=== PATIENT | female | born 1955 | race American Indian/Alaskan Native ===

== ENCOUNTER 2016-11-23 11:15 | Inpatient (IN) | payer MEDICARE, OTHER ==
[2016-11-23 11:16] VITALS: BMI 29.3
[2016-11-23] MEDS ORDERED: Sodium Chloride 0.9% 1,000 ML IV ONE (11:55)
--- NOTE | 2016-11-23 12:26 | RAD ---
HISTORY: SOB COMPARISON: None available. TECHNIQUE: Chest, one view. FINDINGS: LUNGS: No focal consolidation. Please note that chest x-ray has limited sensitivity for the detection of pulmonary masses. PLEURA: No significant pleural effusion identified. No definite pneumothorax . CARDIOVASCULAR: Heart size appears within normal limits. OSSEOUS STRUCTURES: Degenerative changes of the spine and shoulders. VISUALIZED UPPER ABDOMEN: Unremarkable. OTHER FINDINGS: None. IMPRESSION: No focal consolidation, significant pleural effusion, or definite pneumothorax identified.
[2016-11-23 13:07] LABS: BASO % 0.3 % (0.0-2.0); EOS % 0.3 % (0.0-4.0); LYMPH # 0.8 K/uL (1.0-4.3); LYMPH % 6.2 % (20.0-40.0); MEAN CELL VOLUME 91.8 fL (81.0-99.0); MEAN CORPUSCULAR HEMOGLOBIN 30.8 pg (27.0-31.0); MEAN CORPUSCULAR HGB CONC 33.5 g/dL (33.0-37.0); MEAN PLATELET VOLUME 8.9 fL (7.2-11.7); MONO # 0.5 K/uL (0.0-0.8); NEUT # 10.9 K/uL (1.8-7.0); NEUT % 89.2 % (50.0-75.0); WHITE BLOOD COUNT 12.2 K/uL (4.8-10.8)
[2016-11-23 13:08] LABS: HEMOGLOBIN 14.5 g/dL (11.0-16.0); PLATELET COUNT 280 K/uL (130-400)
[2016-11-23 13:10] LABS: ALBUMIN 3.2 g/dL (3.5-5.0)
[2016-11-23 13:12] LABS: GFR AFRICAN-AMERICAN 26; GFR NON-AFRICAN AMERICAN 21
[2016-11-23 13:13] LABS: ALB/GLOB RATIO 0.8 (1.0-2.1); ALT/SGPT 23 U/L (9-52); AST/SGOT 26 U/L (14-36); BLOOD UREA NITROGEN 52 mg/dL (7-17); CALCIUM 8.8 mg/dl (8.6-10.4)
[2016-11-23 13:21] LABS: CK-MB 0.63 ng/mL (0.0-3.38)
[2016-11-23] MEDS ORDERED: Potassium Chloride 20 mEq ER Tab PO STA (13:28)
[2016-11-23 13:42] LABS: BANDS 39 % (0-2); EOSINOPHIL 1 % (0-4); LYMPHOCYTE 6 % (20-40); MONOCYTE 2 % (0-10); NEUTROPHIL 52 % (50-75); PLATELET ESTIMATE NORMAL (NORMAL); TOTAL CELLS COUNTED 100
[2016-11-23 13:43] LABS: GIANT PLATELETS PRESENT
[2016-11-23] MEDS ORDERED: cefTRIAXone IV 1 gm in Dextros 50 ML IV ONE (13:49)
[2016-11-23] MEDS ORDERED: Potassium Chloride 20 mEq ER Tab PO ONE (14:17)
[2016-11-23] MEDS ORDERED: cefTRIAXone IV 1 gm in Dextros 50 ML IVPB ONE (14:17)
--- NOTE | 2016-11-23 14:29 | CT ---
PROCEDURE: CT HEAD WITHOUT CONTRAST. HISTORY: dizzy COMPARISON: None available. TECHNIQUE: Axial computed tomography images were obtained through the head/brain without intravenous contrast. Radiation dose: Total exam DLP = 1089.92 mGy-cm. This CT exam was performed using one or more of the following dose reduction techniques: Automated exposure control, adjustment of the mA and/or kV according to patient size, and/or use of iterative reconstruction technique. FINDINGS: HEMORRHAGE: No intracranial hemorrhage. BRAIN: No mass effect or edema. The mueller-white matter differentiation appears intact. Please note that MRI with diffusion imaging is more sensitive in the detection of acute ischemic event. VENTRICLES: No hydrocephalus. CALVARIUM: Unremarkable. PARANASAL SINUSES: Unremarkable as visualized. No significant inflammatory changes. MASTOID AIR CELLS: Unremarkable as visualized. No inflammatory changes. OTHER FINDINGS: None. IMPRESSION: No acute intracranial pathology identified.
--- NOTE | 2016-11-23 15:04 | C.PDOC ---
History Of Present Illness Patient is a 61 y/o female with HTN, COPD that presents to the emergency department for evaluation of dizziness and weak for the last 10 days. Notes she doesn't feel dizzy when laying down, but feels lightheaded when getting up. Patient also reports decreased appetite for the past week, and states she is not eating solids. Pt reports being seen by PMD today, who requested pt to come to ER for further evaluation. 9-) sore throat or pain with swallowing. Otherwise, patient denies any n/v/d, abdominal pain, headache, weakness, numbness, chest pain, shortness of breath, fever, chills, or any other associated symptoms at this time. Time Seen by Provider: 11/23/16 11:33 Chief Complaint (Nursing): Dizziness/Lightheaded History Per: Patient History/Exam Limitations: no limitations Onset/Duration Of Symptoms: Days (10) Current Symptoms Are (Timing): Still Present Seizure Or Post-ictal Symptoms: None Possible Causative Factor(s): Lightheaded W/Standing Fall Associated With With Symptoms: No Severity: None Pain Scale Rating Of: 0 Recent travel outside of the [place]: No Additional History Per: Patient Past Medical History Reviewed: Historical Data, Nursing Documentation, Vital Signs Vital Signs: Last Vital Signs Temp 98.2 F 11/23/16 18:19 Pulse 104 H 11/23/16 18:19 Resp 20 11/23/16 18:19 BP 109/76 11/23/16 18:19 Pulse Ox 99 11/23/16 18:19 - Medical History PMH: Anemia, Arthritis, Asthma, Back Problems, Bronchitis, Cardia Arrhythmia (" MY HEART RATE HAS ALWAYS BEEN A LITLLE FAST 105 OR SO."), Gall Bladder Disease, HTN Denies: Chronic Kidney Disease Surgical History: Back Surgery (neck spinal fusion), Endoscopy - [facility] Procedures ANESTH INJECT-SPIN CANAL (04/14/13) INJECT STEROID (04/14/13) INSPECTION OF GALLBLADDER, PERCUTANEOUS ENDOSCOPIC APPROACH (03/30/16) LUMBOSAC SPINE X-RAY NEC (04/14/13) RADIOGRAPHY OF GALLBLADDER & BILE DUCT USING OTH CONTRAST (03/30/16) RELEASE SMALL INTESTINE, OPEN APPROACH (03/30/16) RESECTION OF GALLBLADDER, OPEN APPROACH (03/30/16) RESECTION OF SMALL INTESTINE, OPEN APPROACH (03/30/16) SPINAL CANAL INJECT NEC (04/14/13) Family History: States: Unknown Family Hx - Social History Hx Alcohol Use: Yes Hx Substance Use: Yes - Immunization History Hx Tetanus Toxoid Vaccination: No Hx Influenza Vaccination: Yes Hx Pneumococcal Vaccination: No Review Of Systems Except As Marked, All Systems Reviewed And Found Negative. Constitutional: Positive for: Other (decreased appetite). Negative for: Fever, Chills Cardiovascular: Positive for: Light Headedness. Negative for: Chest Pain, Palpitations Respiratory: Negative for: Cough, Shortness of Breath Gastrointestinal: Negative for: Nausea, Vomiting, Abdominal Pain Skin: Negative for: Rash Neurological: Positive for: Dizziness. Negative for: Weakness, Numbness, Headache Physical Exam - Physical Exam Appears: Non-toxic, No Acute Distress Skin: Normal Color, Warm, Dry Head: Atraumatic, Normacephalic Eye(s): bilateral: Normal Inspection, EOMI Nose: Normal Oral Mucosa: Dry Throat: Normal, No Erythema, No Exudate Neck: Normal ROM, Supple Chest: Symmetrical Cardiovascular: Rhythm Regular, No Murmur Respiratory: Normal Breath Sounds, No Accessory Muscle Use, No Rales, No Rhonchi , No Wheezing Gastrointestinal/Abdominal: Soft, No Tenderness Extremity: Normal ROM Neurological/Psych: Oriented x3, Normal Speech ED Course And Treatment - Laboratory Results Result Diagrams: 11/23/16 12:41 11/23/16 12:41 ECG: Interpreted By Me, Viewed By Me ECG Rhythm: Sinus Tachycardia Interpretation Of ECG: No T wave depressions Rate From EC (BPM) O2 Sat by Pulse Oximetry: 99 (room air) Pulse Ox Interpretation: Normal Progress Note: Blood work, urinalysis, EKG, CXR, head CT ordered and reviewed. Patient was given IV fluids, potassium chloride, Rocephin. On reassessment, patient is resting comfortably, no acute distress. No neurologic deficits. Case discussed with lillian Carranza plan and treatment. Case discussed with Dr Bee who instructs admission under hospitalist . Disposition - Disposition Disposition: HOSPITALIZED Disposition Time: 16:00 Condition: STABLE - Clinical Impression Clinical Impression: Dizziness, Hypokalemia, Acute renal failure - PA / EAR MOLD LABORATORY TECHNICIAN / Resident Statement MD/DO has reviewed & agrees with the documentation as recorded. - Scribe Statement The provider has reviewed the documentation as recorded by the Scribe Marjorie Rhodesel All medical record entries made by the Joycelyn were at my direction and personally dictated by me. I have reviewed the chart and agree that the record accurately reflects my personal performance of the history, physical exam, medical decision making, and the department course for this patient. I have also personally directed, reviewed, and agree with the discharge instructions and disposition.
[2016-11-23 15:25] LABS: VENOUS BLOOD GAS BASE EXCESS -6.8 mmol/L (0.0-2.0); VENOUS BLOOD GAS PCO2 42 mmHg (40-60); VENOUS BLOOD GAS PO2 26 mm/Hg (30-55); VENOUS BLOOD PH 7.28 (7.32-7.43)
[2016-11-23] MEDS ORDERED: Albuterol HFA 90 mcg/actuation (8 g) IH PRN (18:31)
--- NOTE | 2016-11-23 18:41 | CP.PCM.HP ---
Addendum entered and electronically signed by Benny Pierson DO 11/23/16 21:47: Spoke with Dr. Pete Howard, covering Dr. Garsia. Started Zosyn 2.25 IVPB Q8 for pharyngitis and overlapping coverage for UTI. Stopped Rocephin. Original Note: <Jennifer Dean - Last Filed: 11/23/16 18:32> History of Present Illness - History of Present Illness History of Present Illness: CC: "I haven't eaten in 10 days." HPI: Patient is a 61 year old female with PMHx of HTN, COPD, arthritis, abdominal hernias and multiple weight loss surgeries presenting for feeling dizzy and weak and not being able to eat for 10 days. Patient says she can drink fluids and swallow her pills. However, she says she cannot eat solid food because everything tastes bad to her. She says everything either tastes too salty or too bitter. She says this has caused her appetite to decrease and that she has only had water, gatorade and iced tea for the past 10 days. Patient reports associated clear liquid stool. Patient also reports severely dry mouth to the point of cracks in the skin around her lips. Patient denies nasal congestion, clogged ears, earache, sore throat, odynophagia, nausea, vomiting. Patient reports the worst headache of her life on Wednesday. She denies associates photophobia, vision change, extremity weakness. Patient says it went away on its own. Patient also reports new abdominal hernias since her having her gallbladder removed. She says she saw Dr. Conte on Wednesday who told her he will repair some of them, but she wants all of them repaired. PMHx - as above Meds - Percocet, Flerexil, Norvasc, Abuterol as needed, Prilosec, Celebrex, Dulera as needed Allergies - NKDA Surg - b/l hip replacement, ovarin cystectomy, hysterectomy, toe surgery for ingrown toenails, bariatric surg x 3 (gastric sleeve, gastric stapling, gastric bypass) appendectomy, cholecystectomy 2015 Fam Hx - mother with diabetes and HTN, denies hx of stroke, heart disease, cancer Social - smokes 1/2 pack a day for 50 years, drinks [employer] with diet coke and [place] daily x 4 drinks "as much as I can", hx of cocaine use last use many years ago Present on Admission - Present on Admission Any Indicators Present on Admission: No Review of Systems - Constitutional Constitutional: Weakness. absent: Chills, Fever - EENT Eyes: absent: Photophobia Ears: Dizziness. absent: Decreased Hearing, Ear Pain Nose/Mouth/Throat: Dry Mouth. absent: Nasal Discharge, Post Nasal Drip, Mouth Pain, Odynophagia, Sore Throat - Cardiovascular Cardiovascular: absent: Chest Pain, Leg Edema - Respiratory Respiratory: absent: Cough, Dyspnea, Wheezing - Gastrointestinal Gastrointestinal: Abdominal Pain (at hernias), Diarrhea. absent: Constipation, Nausea, Vomiting - Genitourinary Genitourinary: absent: Dysuria, Urinary Frequency - Musculoskeletal Musculoskeletal: Back Pain - Integumentary Additional comments: cheilosis - Neurological Neurological: Dizziness, Headaches, Sensory Deficit (taste change), Weakness. absent: Focal Weakness, Syncope - Psychiatric Psychiatric: absent: Suicidal Ideation - Hematologic/Lymphatic Hematologic: absent: Easy Bleeding, Easy Bruising Past Patient History - Infectious Disease Hx of Infectious Diseases: None - Past Medical History & Family History Past Medical History?: Yes Pertinent Family History: mother with diabetes and HTN, denies hx of stroke, heart disease, cancer - Past Social History Smoking Status: Heavy Smoker > 10 Cigarettes Daily Alcohol: > 2 Drinks/Day Drugs: Denies - CARDIAC Hx Cardia Arrhythmia: Yes (" MY HEART RATE HAS ALWAYS BEEN A LITLLE FAST 105 OR SO.") Hx Hypertension: Yes - PULMONARY Hx Asthma: Yes Hx Bronchitis: Yes - HEENT Hx HEENT Problems: No - RENAL Hx Chronic Kidney Disease: No - ENDOCRINE/METABOLIC Hx Endocrine Disorders: No - HEMATOLOGICAL/ONCOLOGICAL Hx Anemia: Yes - INTEGUMENTARY Hx Dermatological Problems: No - MUSCULOSKELETAL/RHEUMATOLOGICAL Hx Arthritis: Yes - GASTROINTESTINAL Hx Gall Bladder Disease: Yes - GENITOURINARY/GYNECOLOGICAL Hx Genitourinary Disorders: No - PSYCHIATRIC Hx Substance Use: Yes - SURGICAL HISTORY Hx Surgeries: Yes Hx Gastric Bypass Surgery: Yes Hx Hysterectomy: Yes Hx Joint Replacement: Yes (bilat hips) Hx Orthopedic Surgery: Yes (2 hip replacement) Hx Tubal Ligation: Yes Other/Comment: HX: CERVICAL SURGERY FOR HERNIATED DISC(S) -RODS PLACED. Ovarian cyst removal. - ANESTHESIA Hx Anesthesia: Yes Hx Anesthesia Reactions: No Hx Malignant Hyperthermia: No Meds Allergies/Adverse Reactions: Allergies Allergy/AdvReac Type Severity Reaction Status Date / Time No Known Allergies Allergy Verified 11/23/16 11:25 Physical Exam - Constitutional Appears: Non-toxic, No Acute Distress - Head Exam Head Exam: NORMAL INSPECTION - Eye Exam Eye Exam: EOMI - ENT Exam Additional comments: cheilosis white exudate on left tonsil erythematous oropharynx no sinus tenderness - Respiratory Exam Respiratory Exam: Clear to Auscultation Bilateral, NORMAL BREATHING PATTERN. absent: Rales, Rhonchi, Wheezes - Cardiovascular Exam Cardiovascular Exam: REGULAR RHYTHM, +S1, +S2. absent: Gallop, Rubs, Systolic Murmur - GI/Abdominal Exam GI & Abdominal Exam: Guarding, Hernia, Hyperactive Bowel Sounds, Normal Bowel Sounds, Soft, Tenderness. absent: Distended - Extremities Exam Extremities exam: Positive for: pedal edema (trace b/l) - Neurological Exam Neurological exam: Alert, Oriented x3 - Psychiatric Exam Psychiatric exam: Normal Affect, Normal Mood - Skin Skin Exam: Normal Color, Warm Results - Vital Signs Recent Vital Signs: Last Vital Signs Temp 98.2 F 11/23/16 18:19 Pulse 104 H 11/23/16 18:19 Resp 20 11/23/16 18:19 BP 109/76 11/23/16 18:19 Pulse Ox 99 11/23/16 18:19 - Labs Result Diagrams: 11/23/16 12:41 11/23/16 12:41 Labs: Laboratory Results - last 24 hr 11/23/16 15:21 pO2 26 L VBG pH 7.28 L VBG pCO2 42 VBG HCO3 18.0 VBG Total CO2 21.0 L VBG O2 Sat (Calc) 50.1 VBG Base Excess -6.8 L VBG Potassium 2.7 L Sodium 133.0 Chloride 101.0 Glucose 104 Lactate 1.6 Venous Blood Potassium 2.7 L Assessment & Plan - Assessment and Plan (Free Text) Assessment: Leukocytosis WBC 12.2 with 39% bands Afebrile Lactic Acid 1.6 CXR 11/23/16 - no focal consolidation, pleural effusion or pneumothorax (please see full report) Secondary to pharyngitis v. gastroenteritis F/U blood culture F/U urine culture Pharyngitis Rocephin 1gm IVPB daily- day 1 ENT consult - Dr. Garsia - f/u recommendations Diarrhea F/U C diff, stool culture, O & P NS @ 125cc/hr Malnutrition Albumin 3.2 Full liquid diet Check vitamin C, B12, D and folate Hypokalemia K 2.6 Likely secondary to malnutrition and/or diarrhea 40mEq PO 20mEq x2 F/U CMP in AM SUHAIL BUN/Cr - 52/2.3 from normal in March Likely secondary to dehydration NS @ 125cc/hr F/U BUN/Cr in AM Cheilosis Check vitamin B12 and folate Headache Head CT 11/23/16 negative (please see full report) H/O multiple weight loss surgeries Check vitamins H/O HTN Continue home norvasc 5mg PO daily Monitor H/O COPD Continue Albuterol inhaler PRN Continue Dulera H/O arthritis with intractable back pain Continue home Flexeril 10mg PO HS, Celebrex 200mg PO BID and Percocet 5/325mg PO Q4H PRN pain H/O abdominal hernias F/U with Dr. Conte outpatient H/O tobacco abuse Nicotine 14mg/24 hour TD daily H/O ETOH abuse F/U alcohol level alcohol withdrawal assessments Q1 Thiamine 100mg PO daily Folic Acid 1mg PO daily MVI daily Prophylaxis Lovenox 40mg SC daily Protonix 40mg PO daily <Shad Ramon - Last Filed: 11/24/16 18:27> Results - Vital Signs Recent Vital Signs: Last Vital Signs Temp 97.7 F 11/24/16 16:50 Pulse 99 H 11/24/16 16:50 Resp 20 11/24/16 16:50 BP 94/67 L 11/24/16 16:50 Pulse Ox 99 11/24/16 16:50 - Labs Result Diagrams: 11/24/16 11:56 11/24/16 11:56 Labs: Laboratory Results - last 24 hr 11/23/16 11/23/16 11/23/16 18:30 19:26 19:52 WBC RBC Hgb Hct MCV MCH MCHC RDW Plt Count MPV Neut % (Auto) Lymph % (Auto) [place] % (Auto) Eos % (Auto) Baso % (Auto) Neut # Lymph # [place] # Eos # Baso # Neutrophils % (Manual) Band Neutrophils % Lymphocytes % (Manual) Monocytes % (Manual) Eosinophils % (Manual) Myelocytes % Platelet Estimate RBC Morphology Sodium Potassium Chloride Carbon Dioxide Anion Gap BUN Creatinine Est GFR ( Amer) Est GFR (Non-Af Amer) Random Glucose Calcium Magnesium Total Bilirubin AST ALT Alkaline Phosphatase Total Protein Albumin Globulin Albumin/Globulin Ratio Vitamin B12 25-OH Vitamin D Total Folate Urine Color Yellow Urine Clarity Hazy Urine pH 5.0 Ur Specific [place] 1.018 Urine Protein 1+ H Urine Glucose (UA) Normal Urine Ketones Negative Urine Blood Negative Urine Nitrate Positive H Urine Bilirubin Negative Urine Urobilinogen Normal Ur Leukocyte Esterase 2+ H Urine WBC (Auto) 25 H Urine RBC (Auto) 1 Ur Squamous Epith Cells 4 Ur Transition Epith Cell < 1 Urine Bacteria Many H Alcohol, Quantitative < 10 C. difficile Ag & Toxin Negative 11/24/16 11/24/16 11/24/16 11:56 11:56 11:56 WBC 11.1 H RBC 4.07 Hgb 12.3 D Hct 37.6 MCV 92.4 MCH 30.2 MCHC 32.7 L RDW 13.1 Plt Count 250 MPV 8.6 Neut % (Auto) 84.9 H Lymph % (Auto) 8.6 L [place] % (Auto) 5.7 Eos % (Auto) 0.6 Baso % (Auto) 0.2 Neut # 9.4 H Lymph # 1.0 Fountain # 0.6 Eos # 0.1 Baso # 0.0 Neutrophils % (Manual) 54 Band Neutrophils % 28 H* Lymphocytes % (Manual) 13 L Monocytes % (Manual) 3 Eosinophils % (Manual) 1 Myelocytes % 1 H Platelet Estimate Normal RBC Morphology Normal Sodium 134 Potassium 2.5 L* Chloride 104 Carbon Dioxide 15 L Anion Gap 17 BUN 42 H Creatinine 1.7 H Est GFR ( Amer) 37 Est GFR (Non-Af Amer) 30 Random Glucose 101 Calcium 7.8 L Magnesium Total Bilirubin 0.3 AST 19 ALT 22 Alkaline Phosphatase 110 Total Protein 5.8 L Albumin 2.5 L D Globulin 3.3 Albumin/Globulin Ratio 0.8 L Vitamin B12 > 1000 H 25-OH Vitamin D Total 40.6 Folate > 20.0 Urine Color Urine Clarity Urine pH Ur Specific [place] Urine Protein Urine Glucose (UA) Urine Ketones Urine Blood Urine Nitrate Urine Bilirubin Urine Urobilinogen Ur Leukocyte Esterase Urine WBC (Auto) Urine RBC (Auto) Ur Squamous Epith Cells Ur Transition Epith Cell Urine Bacteria Alcohol, Quantitative C. difficile Ag & Toxin 11/24/16 17:03 WBC RBC Hgb Hct MCV MCH MCHC RDW Plt Count MPV Neut % (Auto) Lymph % (Auto) [place] % (Auto) Eos % (Auto) Baso % (Auto) Neut # Lymph # [place] # Eos # Baso # Neutrophils % (Manual) Band Neutrophils % Lymphocytes % (Manual) Monocytes % (Manual) Eosinophils % (Manual) Myelocytes % Platelet Estimate RBC Morphology Sodium Potassium Chloride Carbon Dioxide Anion Gap BUN Creatinine Est GFR ( Amer) Est GFR (Non-Af Amer) Random Glucose Calcium Magnesium 1.8 Total Bilirubin AST ALT Alkaline Phosphatase Total Protein Albumin Globulin Albumin/Globulin Ratio Vitamin B12 25-OH Vitamin D Total Folate Urine Color Urine Clarity Urine pH Ur Specific [place] Urine Protein Urine Glucose (UA) Urine Ketones Urine Blood Urine Nitrate Urine Bilirubin Urine Urobilinogen Ur Leukocyte Esterase Urine WBC (Auto) Urine RBC (Auto) Ur Squamous Epith Cells Ur Transition Epith Cell Urine Bacteria Alcohol, Quantitative C. difficile Ag & Toxin Attending/Attestation - Attestation I have personally seen and examined this patient.: Yes I have fully participated in the care of the patient.: Yes I have reviewed all pertinent clinical information: Yes Notes (Text): 11/24/16 18:27 Patient was seen and examined at bedside with the resident the time of admission We have started the patient on IV antibiotics. We'll follow-up per ENT recommendations. I discussed the plan of care with the resident and agree with the history and physical and assessment/plan documented.
[2016-11-23 19:47] LABS: SQUAMOUS EPITHIAL 4 /hpf (0-5); URINE BACTERIA MANY (<OCC); URINE BILIRUBIN NEGATIVE (NEGATIVE); URINE BLOOD NEGATIVE (NEGATIVE); URINE CLARITY Hazy (Clear); URINE COLOR Yellow (YELLOW); URINE GLUCOSE (UA) NORMAL (Normal); URINE NITRATE POSITIVE (NEGATIVE); URINE PROTEIN 1+ mg/dL (NEGATIVE); URINE UROBILINOGEN NORMAL mg/dL (0.2-1.0)
[2016-11-23 19:48] LABS: URINE LEUKOCYTE ESTERASE 2+ Leu/uL (Negative)
[2016-11-23] MEDS: Sodium Chloride 0.9% 1,000 ML IV SCH (21:39)
[2016-11-23] MEDS: Oxycodone/Acetaminophen 5/325 mg Tab PO PRN (21:45)
[2016-11-23] MEDS ORDERED: Piperacillin/Tazobact 2.25 GM in Sodium Chloride 100 ML IVPB SCH (21:45)
[2016-11-23] MEDS: Piperacill/Tazo 2.25gm in Dex 2.25 GM/50 ML BAG IVPB SCH (22:00)
[2016-11-24] MEDS: Sodium Chloride 0.9% 1,000 ML IV SCH ×3 (04:05→18:56)
[2016-11-24] MEDS: Piperacill/Tazo 2.25gm in Dex 2.25 GM/50 ML BAG IVPB SCH ×3 (05:40→21:09)
[2016-11-24] MEDS: Multiple Vitamins Tab PO SCH (09:53)
[2016-11-24] MEDS: Enoxaparin 40 mg Syringe SC SCH (09:54)
[2016-11-24] MEDS ORDERED: Pantoprazole 40 mg EC Tab PO SCH (10:00)
[2016-11-24] MEDS: Oxycodone/Acetaminophen 5/325 mg Tab PO PRN ×3 (10:21→21:08)
[2016-11-24 12:08] LABS: BASO % 0.2 % (0.0-2.0); EOS # 0.1 K/uL (0.0-0.7); EOS % 0.6 % (0.0-4.0); LYMPH % 8.6 % (20.0-40.0); MEAN CELL VOLUME 92.4 fL (81.0-99.0); MEAN CORPUSCULAR HEMOGLOBIN 30.2 pg (27.0-31.0); MEAN CORPUSCULAR HGB CONC 32.7 g/dL (33.0-37.0); MEAN PLATELET VOLUME 8.6 fL (7.2-11.7); MONO # 0.6 K/uL (0.0-0.8); MONO % 5.7 % (0.0-10.0); NEUT # 9.4 K/uL (1.8-7.0); NEUT % 84.9 % (50.0-75.0); PLATELET COUNT 250 K/uL (130-400); RBC 4.07 Mil/uL (3.80-5.20); RED CELL DISTRIBUTION WIDTH 13.1 % (11.5-14.5); WHITE BLOOD COUNT 11.1 K/uL (4.8-10.8)
[2016-11-24 12:18] LABS: HEMOGLOBIN 12.3 g/dL (11.0-16.0)
[2016-11-24 12:22] LABS: ALBUMIN 2.5 g/dL (3.5-5.0)
[2016-11-24 12:25] LABS: ALB/GLOB RATIO 0.8 (1.0-2.1); ALT/SGPT 22 U/L (9-52); AST/SGOT 19 U/L (14-36); BLOOD UREA NITROGEN 42 mg/dL (7-17); GFR AFRICAN-AMERICAN 37; GFR NON-AFRICAN AMERICAN 30
[2016-11-24 12:26] LABS: CALCIUM 7.8 mg/dl (8.6-10.4)
[2016-11-24 12:46] LABS: BANDS 28 % (0-2); EOSINOPHIL 1 % (0-4); LYMPHOCYTE 13 % (20-40); MONOCYTE 3 % (0-10); MYELOCYTE 1 % (0-0); NEUTROPHIL 54 % (50-75); TOTAL CELLS COUNTED 100
[2016-11-24 12:47] LABS: PLATELET ESTIMATE NORMAL (NORMAL)
--- NOTE | 2016-11-24 12:58 | CP.PCM.PN ---
Subjective - Date & Time of Evaluation Date of Evaluation: 11/24/16 Time of Evaluation: 10:00 - Subjective Subjective: see below Objective - Vital Signs/Intake and Output Vital Signs (last 24 hours): Temp Pulse Resp BP Pulse Ox 97.2 F L 72 17 106/73 98 11/24/16 07:57 11/24/16 07:57 11/24/16 07:57 11/24/16 07:57 11/23/16 23:45 - Medications Medications: Current Medications Albuterol (Ventolin Hfa 90 Mcg/Actuation (8 G)) 2 puff IH RQ6 PRN PRN Reason: Wheezing Amlodipine Besylate (Norvasc) 5 mg PO DAILY [facility] Last Admin: 11/24/16 09:54 Dose: 5 mg Celecoxib (Celebrex) 200 mg PO BID [facility] Last Admin: 11/24/16 09:53 Dose: 200 mg Cyclobenzaprine HCl (Flexeril) 10 mg PO HS [facility] Last Admin: 11/23/16 21:46 Dose: 10 mg Enoxaparin Sodium (Lovenox) 40 mg SC DAILY [facility] Last Admin: 11/24/16 09:54 Dose: 40 mg Folic Acid (Folic Acid) 1 mg PO DAILY [facility] Last Admin: 11/24/16 09:54 Dose: 1 mg Home Med (Mometasone/Formoterol [Dulera 200 Mcg/5 Mcg Inhaler]) 2 puff IH RBID [facility] Sodium Chloride (Sodium Chloride 0.9%) 1,000 mls @ 125 mls/hr IV .Q8H [facility] Last Admin: 11/24/16 11:00 Dose: Not Given Piperacillin Sod/Tazobactam Sod (Zosyn 2.25 Gm Iv Premix) 2.25 gm in 50 mls @ 100 mls/hr IVPB Q8 [facility] Last Admin: 11/24/16 05:40 Dose: 100 mls/hr Multivitamins (Hexavitamin) 1 tab PO DAILY [facility] Last Admin: 11/24/16 09:53 Dose: 1 tab Nicotine (Nicoderm Cq) 1 patch TD DAILY [facility] Last Admin: 11/24/16 09:54 Dose: 1 patch Oxycodone/Acetaminophen (Percocet 5/325 Mg Tab) 1 tab PO Q4H PRN PRN Reason: Pain, moderate (4-7) Stop: 11/26/16 18:32 Last Admin: 11/24/16 10:21 Dose: 1 tab Pantoprazole Sodium (Protonix Ec Tab) 40 mg PO DAILY [facility] Last Admin: 11/24/16 09:53 Dose: 40 mg Thiamine HCl (Vitamin B1 Tab) 100 mg PO DAILY [facility] Last Admin: 11/24/16 09:57 Dose: 100 mg - Labs Labs: 11/24/16 11:56 11/24/16 11:56 Assessment and Plan - Assessment and Plan (Free Text) Assessment: ENT Consult History of Present Illness 61 y/o female with one week of loss of appetite and decreased oral intake. She came to the ER due to this along with generalized weakness. She has at no time complained of throat pain or difficulty swallowing. I am asked to consult as the PMD saw white spots on the tonsil yesterday. Past Medical Hx HTN COPD NKDA Medications see list in chart Exam awake, alert, comfortable breathing comfortably neck soft, no swelling, no LAD, no mass or lesion, no tenderness, trachea midline OC/OP: tonsils 1+ b/l and symmetric; no exudate; no erythema; no soft palate swelling or asymmetry nose clear, no discharge Patient refused fiberoptic scope of the nose and throat. I explained the purpose was to inspect the lower throat, but she still declined the exam. Impression Dehydration No evidence of acute tonsillitis or other throat infection Abx per primary team (for her leukocytosis) Call with questions or if exam or complaints change
--- NOTE | 2016-11-24 13:06 | CARD ---
APPROVED REPORT EKG Measurement Heart [id number] <Conclusion> Sinus tachycardia Possible Left atrial enlargement Nonspecific ST abnormality Abnormal ECG
[2016-11-24 13:27] LABS: FOLATE > 20.0 ng/mL
[2016-11-24] MEDS ORDERED: Potassium Chloride 20 mEq ER Tab PO ONE ×2 (15:45→22:03)
--- NOTE | 2016-11-24 16:32 | CP.PCM.PN ---
Addendum entered and electronically signed by Deon Garcia DO 11/24/16 17:51: Pt initially refused labwork this AM, but consented later on. Leukocytosis and bands improved from presentation, but remain elevated. K 2.5 from 2.6 yesterday. This value is critically low and was repleted with oral and IV potassium. Will follow up repletion effectiveness with CMP at 8pm this evening. Pt able to tolerate soup for lunch, and denies abdominal pain, nausea, vomiting , or diarrhea. Original Note: <Deon Garcia - Last Filed: 11/24/16 17:49> Subjective - Date & Time of Evaluation Date of Evaluation: 11/24/16 Time of Evaluation: 16:29 - Subjective Subjective: PGY-[address] Ramon's Service Pt seen and examined at bedside. Patient was found resting comfortably in bed, in no acute distress. She states that she continues to feel hungry and weak. Patient notes that the right side of her mouth is still dry and is further irritated when she opens her mouth too widely or smiles, but the left side is less irritated today. Patient states that back pain caused by degenerative disc disease is controlled, with no acute exacerbation in recent history. Patient no longer c/o dizziness or headache, stating that the dizziness was from not eating. Last BM was yesterday evening and was loose and denies further episodes of diarrhea. Patient denies nausea, vomiting, constipation, dysphagia, dyspnea, dysuria, chest pain, abdominal pain, leg tenderness. Objective - Vital Signs/Intake and Output Vital Signs (last 24 hours): Temp Pulse Resp BP Pulse Ox 97.2 F L 109 H 17 106/73 98 11/24/16 07:57 11/24/16 12:44 11/24/16 07:57 11/24/16 07:57 11/23/16 23:45 Intake and Output: 11/24/16 11/24/16 06:59 18:59 Intake Total 600 Balance 600 - Medications Medications: Current Medications Albuterol (Ventolin Hfa 90 Mcg/Actuation (8 G)) 2 puff IH RQ6 PRN PRN Reason: Wheezing Amlodipine Besylate (Norvasc) 5 mg PO DAILY [facility] Last Admin: 11/24/16 09:54 Dose: 5 mg Celecoxib (Celebrex) 200 mg PO BID [facility] Last Admin: 11/24/16 09:53 Dose: 200 mg Cyclobenzaprine HCl (Flexeril) 10 mg PO HS [facility] Last Admin: 11/23/16 21:46 Dose: 10 mg Enoxaparin Sodium (Lovenox) 40 mg SC DAILY [facility] Last Admin: 11/24/16 09:54 Dose: 40 mg Folic Acid (Folic Acid) 1 mg PO DAILY [facility] Last Admin: 11/24/16 09:54 Dose: 1 mg Home Med (Mometasone/Formoterol [Dulera 200 Mcg/5 Mcg Inhaler]) 2 puff IH RBID [facility] Sodium Chloride (Sodium Chloride 0.9%) 1,000 mls @ 125 mls/hr IV .Q8H [facility] Last Admin: 11/24/16 11:00 Dose: Not Given Piperacillin Sod/Tazobactam Sod (Zosyn 2.25 Gm Iv Premix) 2.25 gm in 50 mls @ 100 mls/hr IVPB Q8 [facility] Last Admin: 11/24/16 13:33 Dose: 100 mls/hr Potassium Chloride (Potassium Chloride 20 Meq/100 Ml) 20 meq in 100 mls @ 50 mls/hr IVPB ONCE ONE Stop: 11/24/16 17:59 Multivitamins (Hexavitamin) 1 tab PO DAILY [facility] Last Admin: 11/24/16 09:53 Dose: 1 tab Nicotine (Nicoderm Cq) 1 patch TD DAILY [facility] Last Admin: 11/24/16 09:54 Dose: 1 patch Oxycodone/Acetaminophen (Percocet 5/325 Mg Tab) 1 tab PO Q4H PRN PRN Reason: Pain, moderate (4-7) Stop: 11/26/16 18:32 Last Admin: 11/24/16 10:21 Dose: 1 tab Pantoprazole Sodium (Protonix Ec Tab) 40 mg PO DAILY [facility] Last Admin: 11/24/16 09:53 Dose: 40 mg Thiamine HCl (Vitamin B1 Tab) 100 mg PO DAILY [facility] Last Admin: 11/24/16 09:57 Dose: 100 mg - Labs Labs: 11/24/16 11:56 11/24/16 11:56 - Additional Findings Additional findings: - Constitutional Appears: Non-toxic, No Acute Distress - Head Exam Head Exam: NORMAL INSPECTION, Atraumatic - Eye Exam Eye Exam: EOMI, PERRL - ENT Exam Additional comments: cheliosis at lips improved white exudate on left tonsil improved from yesterday erythematous oropharynx no sinus tenderness - Respiratory Exam Respiratory Exam: Clear to Auscultation Bilateral, NORMAL BREATHING PATTERN. absent: Rales, Rhonchi, Wheezes - Cardiovascular Exam Cardiovascular Exam: REGULAR RHYTHM, +S1, +S2. absent: Gallop, Rubs, Systolic Murmur - GI/Abdominal Exam GI & Abdominal Exam: Guarding, Hernia, Hyperactive Bowel Sounds, Normal Bowel Sounds, Soft, Tenderness. absent: Distended - Extremities Exam Extremities exam: No calf tenderness - Neurological Exam Neurological exam: Alert, Oriented x3 - Psychiatric Exam Psychiatric exam: Normal Affect, Normal Mood - Skin Skin Exam: Normal Color, Warm Assessment and Plan - Assessment and Plan (Free Text) Plan: Leukocytosis with bandemia Afebrile Secondary to gastroenteritis vs. UTI Improved slightly today - WBC 11.1 from 12.2 yesterday - bands improving (39 on presentation, 28 today) Lactic Acid 1.6 on presentation UA (11/23/16): 2+ LE, Positive Nitrites, 25 WBC, Many bacteria urine culture (11/23/16): gram negative jeni CXR (11/23/16) - no focal consolidation, pleural effusion or pneumothorax ( please see full report) Zosyn 2.25gm IV Q8H (first dose 11/23/16) NS @ 125cc/hr F/U blood culture UTI UA (11/23/16): 2+ LE, Positive Nitrites, 25 WBC, Many bacteria Zosyn 2.25gm IV Q8H (first dose 11/23/16) Pharyngitis Zosyn 2.25gm IV Q8H - Discontinue Rocephin 1gm IVPB daily- day 1 ENT consult - Dr. Mccauley - no evidence of acute pharyngitis, tonsils WNL - signed off Diarrhea C diff negative f/u stool culture, O & P NS @ 125cc/hr Malnutrition Albumin 3.2 Full liquid diet Check vitamin C B12: > 1000 (elevated) D: WNL Folate: WNL Hypokalemia K 2.5 on PM recheck Likely secondary to diarrhea 40mEq PO, 20mEq IV x2 F/U CMP in PM SUHAIL Likely secondary to dehydration BUN/Cr improved after hydration - 52/2.3 on presentation, 42/1.7 today NS @ 125cc/hr Continue to monitor BUN/Cr in AM Headache Head CT 11/23/16 negative (please see full report) H/O multiple weight loss surgeries Vitamins WNL H/O HTN Well controlled, slightly hypotensive this AM Continue home norvasc 5mg PO daily Monitor H/O COPD Continue Albuterol inhaler PRN Continue Dulera H/O arthritis with intractable back pain Continue home Flexeril 10mg PO HS, Celebrex 200mg PO BID and Percocet 5/325mg PO Q4H PRN pain H/O abdominal hernias F/U with Dr. Conte outpatient H/O tobacco abuse Nicotine 14mg/24 hour TD daily H/O ETOH abuse Alcohol level: <10 alcohol withdrawal assessments Q1 Thiamine 100mg PO daily Folic Acid 1mg PO daily MVI daily Prophylaxis Lovenox 40mg SC daily Protonix 40mg PO daily Discussed with Dr. Tristen Garcia PGY-1 <Shad Ramon M - Last Filed: 11/25/16 17:03> Objective - Vital Signs/Intake and Output Vital Signs (last 24 hours): Temp Pulse Resp BP Pulse Ox 97.9 F 96 H 20 95/65 L 98 11/25/16 15:11 11/25/16 15:11 11/25/16 15:11 11/25/16 15:11 11/25/16 15:11 Intake and Output: 11/25/16 11/25/16 06:59 18:59 Intake Total 500 Balance 500 - Medications Medications: Current Medications Albuterol (Ventolin Hfa 90 Mcg/Actuation (8 G)) 2 puff IH RQ6 PRN PRN Reason: Wheezing Amlodipine Besylate (Norvasc) 5 mg PO DAILY [facility] Last Admin: 11/25/16 10:14 Dose: 5 mg Celecoxib (Celebrex) 200 mg PO BID [facility] Last Admin: 11/25/16 10:14 Dose: 200 mg Cyclobenzaprine HCl (Flexeril) 10 mg PO HS [facility] Last Admin: 11/24/16 21:08 Dose: 10 mg Enoxaparin Sodium (Lovenox) 40 mg SC DAILY [facility] Last Admin: 11/25/16 10:59 Dose: Not Given Folic Acid (Folic Acid) 1 mg PO DAILY [facility] Last Admin: 11/25/16 10:14 Dose: 1 mg Home Med (Mometasone/Formoterol [Dulera 200 Mcg/5 Mcg Inhaler]) 2 puff IH RBID [facility] Sodium Chloride (Sodium Chloride 0.9%) 1,000 mls @ 125 mls/hr IV .Q8H [facility] Last Admin: 11/25/16 13:46 Dose: 125 mls/hr Piperacillin Sod/Tazobactam Sod (Zosyn 2.25 Gm Iv Premix) 2.25 gm in 50 mls @ 100 mls/hr IVPB Q8 [facility] Last Admin: 11/25/16 13:49 Dose: 100 mls/hr Multivitamins (Hexavitamin) 1 tab PO DAILY [facility] Last Admin: 11/25/16 10:14 Dose: 1 tab Nicotine (Nicoderm Cq) 1 patch TD DAILY [facility] Last Admin: 11/25/16 10:13 Dose: 1 patch Oxycodone/Acetaminophen (Percocet 5/325 Mg Tab) 1 tab PO Q4H PRN PRN Reason: Pain, moderate (4-7) Stop: 11/26/16 18:32 Last Admin: 11/25/16 10:14 Dose: 1 tab Pantoprazole Sodium (Protonix Ec Tab) 40 mg PO Q24H [facility] Last Admin: 11/25/16 07:41 Dose: 40 mg Thiamine HCl (Vitamin B1 Tab) 100 mg PO DAILY [facility] Last Admin: 11/25/16 10:14 Dose: 100 mg - Labs Labs: 11/25/16 06:39 11/25/16 06:39 Attending/Attestation - Attestation I have personally seen and examined this patient.: Yes I have fully participated in the care of the patient.: Yes I have reviewed all pertinent clinical information, including history, physical exam and plan: Yes Notes (Text): 11/25/16 17:02 Patient was seen and examined at bedside with the resident Complains of for loose bowel movements Replace potassium and check levels again We will consider GI consultation Discussed the plan of care with the resident and agree with the history and physical and assessment/plan documented
[2016-11-24] MEDS: Potassium Chloride 20 mEq ER Tab PO ONE ×2 (19:50→22:03)
[2016-11-24] MEDS: Potassium Chloride 20 mEq/15 ml LIQ UD PO ONE ×2 (21:09→22:01)
[2016-11-25] MEDS: Sodium Chloride 0.9% 1,000 ML IV SCH ×3 (03:20→13:46)
[2016-11-25] MEDS: Piperacill/Tazo 2.25gm in Dex 2.25 GM/50 ML BAG IVPB SCH ×3 (05:51→21:41)
[2016-11-25 07:12] LABS: BASO % 0.3 % (0.0-2.0); EOS % 0.2 % (0.0-4.0); HEMOGLOBIN 11.7 g/dL (11.0-16.0); LYMPH # 1.1 K/uL (1.0-4.3); LYMPH % 7.6 % (20.0-40.0); MEAN CELL VOLUME 92.9 fL (81.0-99.0); MEAN CORPUSCULAR HEMOGLOBIN 29.8 pg (27.0-31.0); MEAN CORPUSCULAR HGB CONC 32.1 g/dL (33.0-37.0); MEAN PLATELET VOLUME 8.4 fL (7.2-11.7); MONO # 0.8 K/uL (0.0-0.8); MONO % 5.4 % (0.0-10.0); NEUT # 12.5 K/uL (1.8-7.0); NEUT % 86.5 % (50.0-75.0); PLATELET COUNT 229 K/uL (130-400); RBC 3.93 Mil/uL (3.80-5.20); RED CELL DISTRIBUTION WIDTH 13.1 % (11.5-14.5); WHITE BLOOD COUNT 14.5 K/uL (4.8-10.8)
[2016-11-25 07:22] LABS: ALBUMIN 2.2 g/dL (3.5-5.0)
[2016-11-25 07:26] LABS: ALB/GLOB RATIO 0.7 (1.0-2.1); CALCIUM 7.3 mg/dl (8.6-10.4); MAGNESIUM 1.7 mg/dL (1.6-2.3)
[2016-11-25] MEDS: Pantoprazole 40 mg EC Tab PO SCH (07:41)
[2016-11-25 08:47] LABS: BANDS 16 % (0-2); BURR CELLS SLIGHT; LARGE PLATELETS PRESENT; LYMPHOCYTE 8 % (20-40); MONOCYTE 8 % (0-10); NEUTROPHIL 68 % (50-75); PLATELET ESTIMATE NORMAL (NORMAL); POIKILOCYTOSIS SLIGHT; TOTAL CELLS COUNTED 100
[2016-11-25] MEDS ORDERED: Potassium Chloride 20 mEq ER Tab PO ONE ×3 (09:37→22:03)
[2016-11-25] MEDS: Multiple Vitamins Tab PO SCH (10:14)
[2016-11-25] MEDS: Oxycodone/Acetaminophen 5/325 mg Tab PO PRN ×2 (10:14→21:45)
[2016-11-25] MEDS: Enoxaparin 40 mg Syringe SC SCH (10:59)
--- NOTE | 2016-11-25 11:38 | CP.PCM.PN ---
<Hunter León E - Last Filed: 11/25/16 14:35> Subjective - Date & Time of Evaluation Date of Evaluation: 11/25/16 Time of Evaluation: 07:40 - Subjective Subjective: Medicine Note ( PGY 1): Dr. Ramon's Service Patient was seen and examined at bedside. Patient was resting comfortably in her bed, watching TV. Patient had no acute issues overnight. Patient has no new complaints. Patient continues to have decreased PO intake and very loose stool ( liquid form). Patient reports that she feels weak but denies chest pain, sob, fever, chills, abdominal pain, nausea, vomiting. Objective - Vital Signs/Intake and Output Vital Signs (last 24 hours): Temp Pulse Resp BP Pulse Ox 97.2 F L 99 H 20 96/68 L 95 11/25/16 08:22 11/25/16 08:22 11/25/16 08:22 11/25/16 08:22 11/25/16 08:22 - Medications Medications: Current Medications Albuterol (Ventolin Hfa 90 Mcg/Actuation (8 G)) 2 puff IH RQ6 PRN PRN Reason: Wheezing Amlodipine Besylate (Norvasc) 5 mg PO DAILY [facility] Last Admin: 11/25/16 10:14 Dose: 5 mg Celecoxib (Celebrex) 200 mg PO BID [facility] Last Admin: 11/25/16 10:14 Dose: 200 mg Cyclobenzaprine HCl (Flexeril) 10 mg PO HS [facility] Last Admin: 11/24/16 21:08 Dose: 10 mg Enoxaparin Sodium (Lovenox) 40 mg SC DAILY [facility] Last Admin: 11/25/16 10:59 Dose: Not Given Folic Acid (Folic Acid) 1 mg PO DAILY [facility] Last Admin: 11/25/16 10:14 Dose: 1 mg Home Med (Mometasone/Formoterol [Dulera 200 Mcg/5 Mcg Inhaler]) 2 puff IH RBID [facility] Sodium Chloride (Sodium Chloride 0.9%) 1,000 mls @ 125 mls/hr IV .Q8H [facility] Last Admin: 11/25/16 11:11 Dose: Not Given Piperacillin Sod/Tazobactam Sod (Zosyn 2.25 Gm Iv Premix) 2.25 gm in 50 mls @ 100 mls/hr IVPB Q8 [facility] Last Admin: 11/25/16 05:51 Dose: 100 mls/hr Multivitamins (Hexavitamin) 1 tab PO DAILY [facility] Last Admin: 11/25/16 10:14 Dose: 1 tab Nicotine (Nicoderm Cq) 1 patch TD DAILY [facility] Last Admin: 11/25/16 10:13 Dose: 1 patch Oxycodone/Acetaminophen (Percocet 5/325 Mg Tab) 1 tab PO Q4H PRN PRN Reason: Pain, moderate (4-7) Stop: 11/26/16 18:32 Last Admin: 11/25/16 10:14 Dose: 1 tab Pantoprazole Sodium (Protonix Ec Tab) 40 mg PO Q24H [facility] Last Admin: 11/25/16 07:41 Dose: 40 mg Potassium Chloride (K-Dur 20 Meq Er Tab) 40 meq PO ONCE ONE Stop: 11/25/16 13:39 Thiamine HCl (Vitamin B1 Tab) 100 mg PO DAILY [facility] Last Admin: 11/25/16 10:14 Dose: 100 mg - Labs Labs: 11/25/16 06:39 11/25/16 06:39 - Constitutional Appears: Well, No Acute Distress - Head Exam Head Exam: ATRAUMATIC, NORMAL INSPECTION - Eye Exam Eye Exam: EOMI, Normal appearance - ENT Exam ENT Exam: Mucous Membranes Moist, Normal Exam - Respiratory Exam Respiratory Exam: Clear to Ausculation Bilateral, NORMAL BREATHING PATTERN - Cardiovascular Exam Cardiovascular Exam: REGULAR RHYTHM, +S1, +S2 - GI/Abdominal Exam GI & Abdominal Exam: Soft, Normal Bowel Sounds - Extremities Exam Extremities Exam: Normal Capillary Refill, Normal Inspection - Neurological Exam Neurological Exam: Alert, Awake, Oriented x3 - Psychiatric Exam Psychiatric exam: Normal Affect, Normal Mood - Skin Skin Exam: Dry, Normal Color, Warm Assessment and Plan (1) Leucocytosis Assessment & Plan: Afebrile With Bandemia On admission (11/25/16): - WBC 12.2---> 11.1 (11/24/16)--->14.5 (11/25/16) - Bands 39---> 20(11/24/16)---> 16 (11/25/16): Improving - Lactic Acid 1.6 on presentation -Blood culture: No growth to date Possibly secondary to UTI UA (11/23/16): 2+ LE, Positive Nitrites, 25 WBC, Many bacteria urine culture (11/23/16): Gram negative jeni * Zosyn 2.25gm IVPB Q8H ( Day 2, started on 11/23/16) * NS @ 125cc/hr * Possibly secondary to Gastroenteritis * C-Diff Ag&Toxin: Negative (11/23/16) * Ova and Parasite: No ova and parasite seen Imaging: Chest X- ray (11/23/16) - no focal consolidation, pleural effusion or pneumothorax (please see full report) Status: Acute (2) Urinary tract infection Assessment & Plan: On admission (11/25/16): - WBC 12.2---> 11.1 (11/24/16)--->14.5 (11/25/16) - Bands 39---> 20(11/24/16)---> 16 (11/25/16): Improving UA (11/23/16): 2+ LE, Positive Nitrites, 25 WBC, Many bacteria Urine culture (11/23/16): Gram negative jeni * Zosyn 2.25gm IVPB Q8H ( Day 2, started on 11/23/16) * NS @ 125cc/hr Status: Acute (3) Pharyngitis Assessment & Plan: Zosyn 2.25gm IV Q8H - Discontinue Rocephin 1gm IVPB daily- day 1 ENT consult - Dr. Mccauley ( Help appreciated) - no evidence of acute pharyngitis, tonsils WNL - signed off Status: Acute (4) Diarrhea Assessment & Plan: GI consult ( Dr. Zuñiga)----> Help appreciated C-Diff Ag&Toxin: Negative (11/23/16) * Ova and Parasite: No ova and parasite seen * NS @ 125cc/hr Status: Acute (5) Malnutrition Assessment & Plan: Albumin 3.2---> 2.5(11/24/16)----> 2.2(11/25/16) Full liquid diet ( Renal Diet) B12: > 1000 (elevated) Vit D: WNL Folate: WNL Pending Vit C level Status: Acute (6) Hypokalemia Assessment & Plan: Possibly secondary to diarrhea K 3.0 on AM recheck * Repleted with 80meq PO and 20meq IV * Recheck this evening * Monitor K+ levels closely Status: Acute (7) Acute kidney injury Assessment & Plan: Improving Possibly secondary to dehydration On admission (11/23/16): BUN/CR: 53/2.3---> 42/1.7(11/24/16)---> 39/1.7(11/25/16) Continue NS @ 125cc/hr Status: Acute (8) Headache Assessment & Plan: Improved Head CT 11/23/16: No acute intracranial pathology identified. Status: Acute (9) Hypertension Assessment & Plan: Well controlled, slightly hypotensive this AM * NS @125mls/hr * Continue home norvasc 5mg PO daily Monitor Status: Acute (10) History of weight loss surgery Assessment & Plan: Vitamins WNL Status: Acute (11) History of COPD Assessment & Plan: Continue Albuterol inhaler 2 puff IH RQ6 PRN Status: Acute (12) History of abdominal hernia Assessment & Plan: F/U with Dr. Conte outpatient Status: Acute (13) History of alcohol abuse Assessment & Plan: Alcohol level on admission: <10 alcohol withdrawal assessments Q1 Thiamine 100mg PO daily Folic Acid 1mg PO daily MVI daily Status: Acute (14) History of tobacco abuse Assessment & Plan: Nicotine 14mg/24 hour TD daily Status: Acute (15) History of chronic back pain Assessment & Plan: Continue home medications: * Flexeril 10mg PO HS * Celebrex 200mg PO BID * Percocet 5/325mg PO Q4H PRN pain Status: Acute (16) History of arthritis Assessment & Plan: Continue home medication: * Celebrex 200mg PO BID Status: Acute (17) Prophylactic measure Assessment & Plan: Ambulating Lovenox 40mg SC daily Protonix 40mg PO daily Status: Acute <Shad Ramon M - Last Filed: 11/26/16 18:17> Objective - Vital Signs/Intake and Output Vital Signs (last 24 hours): Temp Pulse Resp BP Pulse Ox 97.3 F L 96 H 20 116/82 96 11/26/16 15:21 11/26/16 15:21 11/26/16 15:21 11/26/16 15:21 11/26/16 15:21 Intake and Output: 11/26/16 11/26/16 06:59 18:59 Intake Total 750 1080 Balance 750 1080 - Medications Medications: Current Medications Albuterol (Ventolin Hfa 90 Mcg/Actuation (8 G)) 2 puff IH RQ6 PRN PRN Reason: Wheezing Amlodipine Besylate (Norvasc) 5 mg PO DAILY [facility] Last Admin: 11/26/16 10:08 Dose: 5 mg Celecoxib (Celebrex) 200 mg PO BID [facility] Last Admin: 11/26/16 18:12 Dose: 200 mg Cyclobenzaprine HCl (Flexeril) 10 mg PO HS [facility] Last Admin: 11/25/16 21:41 Dose: 10 mg Enoxaparin Sodium (Lovenox) 40 mg SC DAILY [facility] Last Admin: 11/26/16 10:15 Dose: Not Given Folic Acid (Folic Acid) 1 mg PO DAILY [facility] Last Admin: 11/26/16 10:07 Dose: 1 mg Home Med (Mometasone/Formoterol [Dulera 200 Mcg/5 Mcg Inhaler]) 2 puff IH RBID [facility] Last Admin: 11/26/16 16:41 Dose: Not Given Metronidazole (Flagyl) 500 mg in 100 mls @ 100 mls/hr IVPB Q8H [facility] Last Admin: 11/26/16 16:28 Dose: 100 mls/hr Sodium Chloride (Sodium Chloride 0.9%) 1,000 mls @ 100 mls/hr IV .Q10H [facility] Last Admin: 11/26/16 11:23 Dose: 100 mls/hr Ciprofloxacin (Cipro 400mg/200ml Dsw) 400 mg in 200 mls @ 133 mls/hr IVPB Q12H [facility] Multivitamins (Hexavitamin) 1 tab PO DAILY [facility] Last Admin: 11/26/16 10:08 Dose: 1 tab Nicotine (Nicoderm Cq) 1 patch TD DAILY [facility] Last Admin: 11/26/16 10:08 Dose: 1 patch Oxycodone/Acetaminophen (Percocet 5/325 Mg Tab) 1 tab PO Q4H PRN PRN Reason: Pain, moderate (4-7) Stop: 11/26/16 18:32 Last Admin: 11/26/16 16:23 Dose: 1 tab Pantoprazole Sodium (Protonix Ec Tab) 40 mg PO Q24H [facility] Last Admin: 11/26/16 08:44 Dose: 40 mg Saccharomyces Boulardii (Florastor) 250 mg PO BID [facility] Last Admin: 11/26/16 18:12 Dose: 250 mg Thiamine HCl (Vitamin B1 Tab) 100 mg PO DAILY [facility] Last Admin: 11/26/16 10:08 Dose: 100 mg - Labs Labs: 11/26/16 08:23 11/26/16 08:23 Attending/Attestation - Attestation I have personally seen and examined this patient.: Yes I have fully participated in the care of the patient.: Yes I have reviewed all pertinent clinical information, including history, physical exam and plan: Yes Notes (Text): 11/26/16 18:16 Patient was seen and examined at bedside with the resident Complains of flow was watery stools GI evaluation is in progress Follow-up stool cultures Continue antibiotics Discussed the plan of care with the resident and agree with the history and physical and assessment/plan documented by the resident.
--- NOTE | 2016-11-25 22:37 | CP.PCM.CON ---
History of Present Illness - History of Present Illness History of Present Illness: ASked today to see pt for diarrhea. Rn is present. Pt reports a 10 day h/o poor appetite and 2 days of fatigue. Past few days developed diarrhea- watery stool. Denies antibiotics, fever, abdom pain. Had ROSEMARY 6 months ago and developed abdom hernias. Had gastric bypass surgery Review of Systems - Constitutional Constitutional: Fatigue, Headache, Weight Gain, Weakness. absent: Fever - EENT Nose/Mouth/Throat: Sore Throat. absent: Dysphagia - Cardiovascular Cardiovascular: absent: Chest Pain, Dyspnea - Respiratory Respiratory: absent: Dyspnea, Hemoptysis, Wheezing - Gastrointestinal Gastrointestinal: Diarrhea. absent: Abdominal Pain, Constipation, Hematemesis, Hematochezia, Melena, Vomiting - Genitourinary Genitourinary: absent: Hematuria - Musculoskeletal Musculoskeletal: absent: Muscle Cramps - Integumentary Integumentary: absent: Jaundice - Neurological Neurological: absent: Convulsions Past Patient History - Infectious Disease Hx of Infectious Diseases: None - Past Medical History & Family History Past Medical History?: Yes - Past Social History Smoking Status: Current Some Days Smoker - CARDIAC Hx Hypertension: Yes - PULMONARY Hx Asthma: Yes Hx Bronchitis: Yes - HEENT Hx HEENT Problems: No - RENAL Hx Chronic Kidney Disease: No - ENDOCRINE/METABOLIC Hx Endocrine Disorders: No - HEMATOLOGICAL/ONCOLOGICAL Hx Anemia: Yes Hx Hepatitis A: Yes - INTEGUMENTARY Hx Dermatological Problems: No - MUSCULOSKELETAL/RHEUMATOLOGICAL Hx Arthritis: Yes - GASTROINTESTINAL Hx Gall Bladder Disease: Yes - GENITOURINARY/GYNECOLOGICAL Hx Genitourinary Disorders: No - PSYCHIATRIC Hx Substance Use: Yes - SURGICAL HISTORY Hx Surgeries: Yes Hx Cholecystectomy: Yes (03/2016) Hx Gastric Bypass Surgery: Yes Hx Hysterectomy: Yes Hx Joint Replacement: Yes (bilat hips 06/2005 and 09/2005) Hx Orthopedic Surgery: Yes (2 hip replacement) Hx Tubal Ligation: Yes Other/Comment: HX: CERVICAL SURGERY FOR HERNIATED DISC(S) -RODS PLACED. Ovarian cyst removal. - ANESTHESIA Hx Anesthesia: Yes Hx Anesthesia Reactions: No Hx Malignant Hyperthermia: No Meds Allergies/Adverse Reactions: Allergies Allergy/AdvReac Type Severity Reaction Status Date / Time No Known Allergies Allergy Verified 11/23/16 11:25 - Medications Medications: Current Medications Albuterol (Ventolin Hfa 90 Mcg/Actuation (8 G)) 2 puff IH RQ6 PRN PRN Reason: Wheezing Amlodipine Besylate (Norvasc) 5 mg PO DAILY [facility] Last Admin: 11/25/16 10:14 Dose: 5 mg Celecoxib (Celebrex) 200 mg PO BID [facility] Last Admin: 11/25/16 18:26 Dose: 200 mg Cyclobenzaprine HCl (Flexeril) 10 mg PO HS [facility] Last Admin: 11/25/16 21:41 Dose: 10 mg Enoxaparin Sodium (Lovenox) 40 mg SC DAILY [facility] Last Admin: 11/25/16 10:59 Dose: Not Given Folic Acid (Folic Acid) 1 mg PO DAILY [facility] Last Admin: 11/25/16 10:14 Dose: 1 mg Home Med (Mometasone/Formoterol [Dulera 200 Mcg/5 Mcg Inhaler]) 2 puff IH RBID [facility] Sodium Chloride (Sodium Chloride 0.9%) 1,000 mls @ 125 mls/hr IV .Q8H [facility] Last Admin: 11/25/16 13:46 Dose: 125 mls/hr Piperacillin Sod/Tazobactam Sod (Zosyn 2.25 Gm Iv Premix) 2.25 gm in 50 mls @ 100 mls/hr IVPB Q8 [facility] Last Admin: 11/25/16 21:41 Dose: 100 mls/hr Multivitamins (Hexavitamin) 1 tab PO DAILY [facility] Last Admin: 11/25/16 10:14 Dose: 1 tab Nicotine (Nicoderm Cq) 1 patch TD DAILY [facility] Last Admin: 11/25/16 10:13 Dose: 1 patch Oxycodone/Acetaminophen (Percocet 5/325 Mg Tab) 1 tab PO Q4H PRN PRN Reason: Pain, moderate (4-7) Stop: 11/26/16 18:32 Last Admin: 11/25/16 21:45 Dose: 1 tab Pantoprazole Sodium (Protonix Ec Tab) 40 mg PO Q24H [facility] Last Admin: 11/25/16 07:41 Dose: 40 mg Thiamine HCl (Vitamin B1 Tab) 100 mg PO DAILY [facility] Last Admin: 11/25/16 10:14 Dose: 100 mg Physical Exam - Constitutional Appears: Non-toxic - Respiratory Exam Respiratory Exam: Clear to Auscultation Bilateral - Cardiovascular Exam Cardiovascular Exam: RRR - GI/Abdominal Exam GI & Abdominal Exam: Normal Bowel Sounds, Soft. absent: Distended, Guarding, Tenderness Additional comments: abdom scar and hernias. - Extremities Exam Extremities exam: Negative for: calf tenderness - Neurological Exam Neurological exam: Alert, Oriented x3 Results - Vital Signs Recent Vital Signs: Last Vital Signs Temp 97.9 F 11/25/16 15:11 Pulse 96 H 11/25/16 17:30 Resp 20 11/25/16 15:11 BP 95/65 L 11/25/16 15:11 Pulse Ox 98 11/25/16 15:11 - Labs Result Diagrams: 11/25/16 06:39 11/25/16 06:39 Labs: Laboratory Results - last 24 hr 11/25/16 11/25/16 11/25/16 06:39 06:39 14:14 WBC 14.5 H RBC 3.93 Hgb 11.7 Hct 36.5 MCV 92.9 MCH 29.8 MCHC 32.1 L RDW 13.1 Plt Count 229 MPV 8.4 Neut % (Auto) 86.5 H Lymph % (Auto) 7.6 L [place] % (Auto) 5.4 Eos % (Auto) 0.2 Baso % (Auto) 0.3 Neut # 12.5 H Lymph # 1.1 [place] # 0.8 Eos # 0.0 Baso # 0.0 Neutrophils % (Manual) 68 Band Neutrophils % 16 H* Lymphocytes % (Manual) 8 L Monocytes % (Manual) 8 Platelet Estimate Normal Large Platelets Present Poikilocytosis (manual Slight Meghann Cells Slight Sodium 134 Potassium 3.0 L Chloride 108 H Carbon Dioxide 14 L Anion Gap 15 BUN 39 H Creatinine 1.7 H Est GFR ( Amer) 37 Est GFR (Non-Af Amer) 30 Random Glucose 76 Calcium 7.3 L Phosphorus 3.6 Magnesium 1.7 Total Bilirubin 0.3 AST 18 ALT 28 Alkaline Phosphatase 97 Total Protein 5.3 L Albumin 2.2 L Globulin 3.1 Albumin/Globulin Ratio 0.7 L C. difficile Ag & Toxin HIV 1&2 Antibody Screen Negative 11/25/16 Unknown WBC RBC Hgb Hct MCV MCH MCHC RDW Plt Count MPV Neut % (Auto) Lymph % (Auto) [place] % (Auto) Eos % (Auto) Baso % (Auto) Neut # Lymph # [place] # Eos # Baso # Neutrophils % (Manual) Band Neutrophils % Lymphocytes % (Manual) Monocytes % (Manual) Platelet Estimate Large Platelets Poikilocytosis (manual Meghann Cells Sodium Potassium Chloride Carbon Dioxide Anion Gap BUN Creatinine Est GFR ( Amer) Est GFR (Non-Af Amer) Random Glucose Calcium Phosphorus Magnesium Total Bilirubin AST ALT Alkaline Phosphatase Total Protein Albumin Globulin Albumin/Globulin Ratio C. difficile Ag & Toxin Negative HIV 1&2 Antibody Screen Assessment & Plan (1) Acute kidney injury Assessment and Plan: dehydration Status: Acute (2) Diarrhea Assessment and Plan: c difficile is negative. Consider gastroenteritis. Denies abdom pain. Consider bile diarrhea. Status: Acute (3) Dizziness Status: Acute (4) Headache Status: Acute (5) History of COPD Status: Acute (6) History of abdominal hernia Status: Acute (7) History of alcohol abuse Status: Acute (8) History of arthritis Status: Acute (9) History of chronic back pain Status: Acute (10) History of weight loss surgery Status: Acute (11) Hypertension Status: Acute (12) Hypokalemia Status: Acute (13) Leucocytosis Assessment and Plan: Consider UTI as source. Consider c difficile- but stool is negative. Consider adding flagyl and probiotics. Status: Acute (14) Pharyngitis Status: Acute (15) Urinary tract infection Status: Acute
[2016-11-26] MEDS: Sodium Chloride 0.9% 1,000 ML IV SCH ×3 (00:48→11:23)
[2016-11-26 01:03] LABS: ALBUMIN 2.6 g/dL (3.5-5.0)
[2016-11-26 01:06] LABS: ALB/GLOB RATIO 0.8 (1.0-2.1)
[2016-11-26 01:07] LABS: CALCIUM 7.5 mg/dl (8.6-10.4)
[2016-11-26] MEDS ORDERED: Potassium Chloride 20 mEq ER Tab PO ONE ×2 (04:02→05:42)
[2016-11-26] MEDS: Piperacill/Tazo 2.25gm in Dex 2.25 GM/50 ML BAG IVPB SCH ×2 (05:55→13:43)
[2016-11-26 08:41] LABS: BASO % 0.2 % (0.0-2.0); EOS # 0.1 K/uL (0.0-0.7); EOS % 0.9 % (0.0-4.0); HEMOGLOBIN 11.9 g/dL (11.0-16.0); LYMPH # 1.3 K/uL (1.0-4.3); LYMPH % 12.4 % (20.0-40.0); MEAN CELL VOLUME 94.1 fL (81.0-99.0); MEAN CORPUSCULAR HEMOGLOBIN 31.2 pg (27.0-31.0); MEAN CORPUSCULAR HGB CONC 33.1 g/dL (33.0-37.0); MEAN PLATELET VOLUME 7.9 fL (7.2-11.7); MONO # 0.8 K/uL (0.0-0.8); MONO % 7.3 % (0.0-10.0); NEUT # 8.5 K/uL (1.8-7.0); NEUT % 79.2 % (50.0-75.0); RBC 3.82 Mil/uL (3.80-5.20); RED CELL DISTRIBUTION WIDTH 13.6 % (11.5-14.5); WHITE BLOOD COUNT 10.7 K/uL (4.8-10.8)
[2016-11-26] MEDS: Pantoprazole 40 mg EC Tab PO SCH (08:44)
[2016-11-26 08:55] LABS: ALBUMIN 2.2 g/dL (3.5-5.0)
[2016-11-26 08:57] LABS: GFR AFRICAN-AMERICAN > 60; GFR NON-AFRICAN AMERICAN 50
[2016-11-26 08:58] LABS: ALB/GLOB RATIO 0.7 (1.0-2.1); ALT/SGPT 26 U/L (9-52); AST/SGOT 19 U/L (14-36); BLOOD UREA NITROGEN 26 mg/dL (7-17)
[2016-11-26 08:59] LABS: CALCIUM 7.5 mg/dl (8.6-10.4); MAGNESIUM 1.8 mg/dL (1.6-2.3)
[2016-11-26] MEDS: Multiple Vitamins Tab PO SCH (10:08)
[2016-11-26] MEDS: metroNIDAZOLE IV 500 mg/100 ml 500 MG/100 ML BAG IVPB SCH ×2 (10:10→16:28)
[2016-11-26] MEDS: Enoxaparin 40 mg Syringe SC SCH (10:15)
[2016-11-26] MEDS: Oxycodone/Acetaminophen 5/325 mg Tab PO PRN ×2 (10:18→16:23)
--- NOTE | 2016-11-26 11:47 | CP.PCM.PN ---
Subjective - Date & Time of Evaluation Date of Evaluation: 11/26/16 Time of Evaluation: 11:44 - Subjective Subjective: F/U diarrhea. Reports has diarrhea today. Denies RB, melena, fever, chills SOB, cough, hematuria, hemoptysis Objective - Vital Signs/Intake and Output Vital Signs (last 24 hours): Temp Pulse Resp BP Pulse Ox 97.7 F 91 H 18 109/81 97 11/26/16 08:20 11/26/16 08:20 11/26/16 08:20 11/26/16 08:20 11/25/16 23:55 Intake and Output: 11/26/16 11/26/16 06:59 18:59 Intake Total 750 Balance 750 - Medications Medications: Current Medications Albuterol (Ventolin Hfa 90 Mcg/Actuation (8 G)) 2 puff IH RQ6 PRN PRN Reason: Wheezing Amlodipine Besylate (Norvasc) 5 mg PO DAILY [facility] Last Admin: 11/26/16 10:08 Dose: 5 mg Celecoxib (Celebrex) 200 mg PO BID [facility] Last Admin: 11/26/16 10:08 Dose: 200 mg Cyclobenzaprine HCl (Flexeril) 10 mg PO HS [facility] Last Admin: 11/25/16 21:41 Dose: 10 mg Enoxaparin Sodium (Lovenox) 40 mg SC DAILY [facility] Last Admin: 11/26/16 10:15 Dose: Not Given Folic Acid (Folic Acid) 1 mg PO DAILY [facility] Last Admin: 11/26/16 10:07 Dose: 1 mg Home Med (Mometasone/Formoterol [Dulera 200 Mcg/5 Mcg Inhaler]) 2 puff IH RBID [facility] Piperacillin Sod/Tazobactam Sod (Zosyn 2.25 Gm Iv Premix) 2.25 gm in 50 mls @ 100 mls/hr IVPB Q8 [facility] Last Admin: 11/26/16 05:55 Dose: 100 mls/hr Metronidazole (Flagyl) 500 mg in 100 mls @ 100 mls/hr IVPB Q8H [facility] Last Admin: 11/26/16 10:10 Dose: 100 mls/hr Sodium Chloride (Sodium Chloride 0.9%) 1,000 mls @ 100 mls/hr IV .Q10H [facility] Last Admin: 11/26/16 11:23 Dose: 100 mls/hr Multivitamins (Hexavitamin) 1 tab PO DAILY [facility] Last Admin: 11/26/16 10:08 Dose: 1 tab Nicotine (Nicoderm Cq) 1 patch TD DAILY [facility] Last Admin: 11/26/16 10:08 Dose: 1 patch Oxycodone/Acetaminophen (Percocet 5/325 Mg Tab) 1 tab PO Q4H PRN PRN Reason: Pain, moderate (4-7) Stop: 11/26/16 18:32 Last Admin: 11/26/16 10:18 Dose: 1 tab Pantoprazole Sodium (Protonix Ec Tab) 40 mg PO Q24H [facility] Last Admin: 11/26/16 08:44 Dose: 40 mg Saccharomyces Boulardii (Florastor) 250 mg PO BID [facility] Thiamine HCl (Vitamin B1 Tab) 100 mg PO DAILY [facility] Last Admin: 11/26/16 10:08 Dose: 100 mg - Labs Labs: 11/26/16 08:23 11/26/16 08:23 - Constitutional Appears: Non-toxic - Respiratory Exam Respiratory Exam: Clear to Ausculation Bilateral - Cardiovascular Exam Cardiovascular Exam: RRR - GI/Abdominal Exam GI & Abdominal Exam: Soft, Hernia, Normal Bowel Sounds. absent: Guarding, Tenderness, Rebound - Extremities Exam Extremities Exam: absent: Calf Tenderness - Neurological Exam Neurological Exam: Alert, Oriented x3 Assessment and Plan (1) Acute kidney injury Status: Acute (2) Diarrhea Assessment & Plan: check stool tests. WBC is better- to 10 Status: Acute (3) Dizziness Status: Acute (4) Headache Status: Acute (5) History of COPD Status: Acute (6) History of abdominal hernia Status: Acute (7) History of alcohol abuse Status: Acute (8) History of arthritis Status: Acute (9) History of chronic back pain Status: Acute (10) History of weight loss surgery Status: Acute (11) Hypertension Status: Acute (12) Hypokalemia Status: Acute (13) Leucocytosis Assessment & Plan: Improving Status: Acute (14) Pharyngitis Assessment & Plan: Seen by ENT. Status: Acute (15) Urinary tract infection Status: Acute
[2016-11-26] MEDS: Saccharomyces Boulardi 250 mg Cap PO SCH ×2 (12:10→18:12)
--- NOTE | 2016-11-26 16:17 | CP.PCM.PN ---
<CoreaPushpa brightcarine E - Last Filed: 11/26/16 17:46> Subjective - Date & Time of Evaluation Date of Evaluation: 11/26/16 Time of Evaluation: 07:40 - Subjective Subjective: Medicine Note (PGY 1): DRr. Ramon's service Patient was seen and examined at bedside. Patient states that she is doing well with minimal weakness. Patient is attempting to increase PO intake. Patient denies chest pain, dyspnea, abdominal pain, nausea, vomiting, headache, fever and chills but still admits to very loose ( liquid form) stool. Patient ambulates. Objective - Vital Signs/Intake and Output Vital Signs (last 24 hours): Temp Pulse Resp BP Pulse Ox 97.3 F L 96 H 20 116/82 96 11/26/16 15:21 11/26/16 15:21 11/26/16 15:21 11/26/16 15:21 11/26/16 15:21 Intake and Output: 11/26/16 11/26/16 06:59 18:59 Intake Total 750 1080 Balance 750 1080 - Medications Medications: Current Medications Albuterol (Ventolin Hfa 90 Mcg/Actuation (8 G)) 2 puff IH RQ6 PRN PRN Reason: Wheezing Amlodipine Besylate (Norvasc) 5 mg PO DAILY [facility] Last Admin: 11/26/16 10:08 Dose: 5 mg Celecoxib (Celebrex) 200 mg PO BID [facility] Last Admin: 11/26/16 10:08 Dose: 200 mg Cyclobenzaprine HCl (Flexeril) 10 mg PO HS [facility] Last Admin: 11/25/16 21:41 Dose: 10 mg Enoxaparin Sodium (Lovenox) 40 mg SC DAILY [facility] Last Admin: 11/26/16 10:15 Dose: Not Given Folic Acid (Folic Acid) 1 mg PO DAILY [facility] Last Admin: 11/26/16 10:07 Dose: 1 mg Home Med (Mometasone/Formoterol [Dulera 200 Mcg/5 Mcg Inhaler]) 2 puff IH RBID [facility] Piperacillin Sod/Tazobactam Sod (Zosyn 2.25 Gm Iv Premix) 2.25 gm in 50 mls @ 100 mls/hr IVPB Q8 [facility] Last Admin: 11/26/16 13:43 Dose: 100 mls/hr Metronidazole (Flagyl) 500 mg in 100 mls @ 100 mls/hr IVPB Q8H [facility] Last Admin: 11/26/16 10:10 Dose: 100 mls/hr Sodium Chloride (Sodium Chloride 0.9%) 1,000 mls @ 100 mls/hr IV .Q10H [facility] Last Admin: 11/26/16 11:23 Dose: 100 mls/hr Multivitamins (Hexavitamin) 1 tab PO DAILY [facility] Last Admin: 11/26/16 10:08 Dose: 1 tab Nicotine (Nicoderm Cq) 1 patch TD DAILY [facility] Last Admin: 11/26/16 10:08 Dose: 1 patch Oxycodone/Acetaminophen (Percocet 5/325 Mg Tab) 1 tab PO Q4H PRN PRN Reason: Pain, moderate (4-7) Stop: 11/26/16 18:32 Last Admin: 11/26/16 10:18 Dose: 1 tab Pantoprazole Sodium (Protonix Ec Tab) 40 mg PO Q24H [facility] Last Admin: 11/26/16 08:44 Dose: 40 mg Saccharomyces Boulardii (Florastor) 250 mg PO BID [facility] Last Admin: 11/26/16 12:10 Dose: 250 mg Thiamine HCl (Vitamin B1 Tab) 100 mg PO DAILY [facility] Last Admin: 11/26/16 10:08 Dose: 100 mg - Labs Labs: 11/26/16 08:23 11/26/16 08:23 - Constitutional Appears: Well, No Acute Distress - Head Exam Head Exam: NORMAL INSPECTION, NORMOCEPHALIC - Eye Exam Eye Exam: EOMI, Normal appearance - ENT Exam ENT Exam: Mucous Membranes Moist, Normal Exam - Respiratory Exam Respiratory Exam: Clear to Ausculation Bilateral, NORMAL BREATHING PATTERN - Cardiovascular Exam Cardiovascular Exam: REGULAR RHYTHM, +S1, +S2 - GI/Abdominal Exam GI & Abdominal Exam: Soft, Normal Bowel Sounds. absent: Tenderness - Extremities Exam Extremities Exam: Normal Capillary Refill, Normal Inspection. absent: Calf Tenderness, Pedal Edema - Neurological Exam Neurological Exam: Alert, Awake, Oriented x3 - Psychiatric Exam Psychiatric exam: Normal Affect, Normal Mood - Skin Skin Exam: Dry, Normal Color, Warm Assessment and Plan (1) Leucocytosis Assessment & Plan: Resolving Afebrile With Bandemia On admission (11/25/16): - WBC 12.2---> 11.1 (11/24/16)--->14.5 (11/25/16)---> 10.7 (11/26/16) - Bands 39---> 20(11/24/16)---> 16 (11/25/16): Improving - Lactic Acid 1.6 on presentation -Blood culture: No growth to date Possibly secondary to UTI UA (11/23/16): 2+ LE, Positive Nitrites, 25 WBC, Many bacteria Urine culture (11/23/16): Gram negative jeni. Salmonella Group B * Zosyn 2.25gm IVPB Q8H ( Day 2, started on 11/23/16)----> Changed to Ciprofloxacin 400mg IV BID (11/25/16) * NS @ 125cc/hr * Possibly secondary to Gastroenteritis * C-Diff Ag&Toxin: Negative (11/23/16) * Ova and Parasite: No ova and parasite seen * Stool Culture: + Gram negative jeni - Started on Flagyl 500mg IV Q8H ( Day 1)-->11/25/16 Imaging: Chest X- ray (11/23/16) - no focal consolidation, pleural effusion or pneumothorax (please see full report) Status: Acute (2) Urinary tract infection Assessment & Plan: On admission (11/25/16): - WBC 12.2---> 11.1 (11/24/16)--->14.5 (11/25/16)---> 10.7 (11/26/16): Improving - Bands 39---> 20(11/24/16)---> 16 (11/25/16): Improving UA (11/23/16): 2+ LE, Positive Nitrites, 25 WBC, Many bacteria Urine culture (11/23/16): Gram negative jeni ( Salmonella Group B) * Zosyn 2.25gm IVPB Q8H ( Day 2, started on 11/23/16)---> changed to ciprofloxacin 400mg IV BID (11/25/16) * NS @ 125cc/hr Status: Acute (3) Pharyngitis Assessment & Plan: Resolved Zosyn 2.25gm IV Q8H ---> Discontinued on 11/26/16 - Discontinue Rocephin 1gm IVPB daily- day 1 ENT consult - Dr. Mccauley ( Help appreciated) - no evidence of acute pharyngitis, tonsils WNL - signed off Status: Acute (4) Diarrhea Assessment & Plan: Ongoing GI consult ( Dr. Dixon)----> Help appreciated As per GI recommendation: Consider adding flagyl and probiotics; Started Flagy 500mg IV Q8H * Stool Culture: Gram negative jeni (11/25/16) * C-Diff Ag&Toxin: Negative (11/23/16) * Ova and Parasite: No ova and parasite seen * NS @ 125cc/hr Status: Acute (5) Malnutrition Assessment & Plan: Albumin 3.2---> 2.5(11/24/16)----> 2.2(11/25/16) Full liquid diet ( Renal Diet)--> Switched to heart healthy diet B12: > 1000 (elevated) Vit D: WNL Folate: WNL Pending Vit C level Patient is attempting to increase PO intake Status: Acute (6) Hypokalemia Assessment & Plan: Possibly secondary to diarrhea K 3.4 on AM recheck * Repleted with Kdur 80meq PO * f/u evening CMP and replete as needed * Monitor K+ levels closely Status: Acute (7) Acute kidney injury Assessment & Plan: Improving Possibly secondary to dehydration On admission (11/23/16): BUN/CR: 53/2.3---> 42/1.7(11/24/16)---> 39/1.7(11/25/16)---> 30/1.4 Continue NS @ 125cc/hr Status: Acute (8) Headache Assessment & Plan: Improved Head CT 11/23/16: No acute intracranial pathology identified. Status: Acute (9) Hypertension Assessment & Plan: Well controlled, slightly hypotensive this AM * NS @125mls/hr * Continue home norvasc 5mg PO daily Status: Acute (10) History of weight loss surgery Assessment & Plan: Vitamins WNL Status: Acute (11) History of COPD Assessment & Plan: Continue Albuterol inhaler 2 puff IH RQ6 PRN Status: Acute (12) History of abdominal hernia Assessment & Plan: F/U with Dr. Conte outpatient Status: Acute (13) History of alcohol abuse Assessment & Plan: Alcohol level on admission: <10 alcohol withdrawal assessments Q1 Thiamine 100mg PO daily Folic Acid 1mg PO daily MVI daily Status: Acute (14) History of tobacco abuse Assessment & Plan: Nicotine 14mg/24 hour TD daily Status: Acute (15) History of chronic back pain Assessment & Plan: Continue home medications: * Flexeril 10mg PO HS * Celebrex 200mg PO BID * Percocet 5/325mg PO Q4H PRN pain Status: Acute (16) History of arthritis Assessment & Plan: Continue home medication: * Celebrex 200mg PO BID Status: Acute (17) Prophylactic measure Assessment & Plan: Ambulating Florastor 250mg PO BID Lovenox 40mg SC daily Protonix 40mg PO daily Status: Acute <Shad Ramon - Last Filed: 11/27/16 15:00> Objective - Vital Signs/Intake and Output Vital Signs (last 24 hours): Temp Pulse Resp BP Pulse Ox 97.5 F L 109 H 18 103/74 99 11/27/16 08:08 11/27/16 08:08 11/27/16 08:08 11/27/16 08:08 11/27/16 08:08 Intake and Output: 11/27/16 11/27/16 06:59 18:59 Intake Total 700 Balance 700 - Medications Medications: Current Medications Albuterol (Ventolin Hfa 90 Mcg/Actuation (8 G)) 2 puff IH RQ6 PRN PRN Reason: Wheezing Amlodipine Besylate (Norvasc) 5 mg PO DAILY [facility] Last Admin: 11/27/16 10:03 Dose: 5 mg Celecoxib (Celebrex) 200 mg PO BID [facility] Last Admin: 11/27/16 10:03 Dose: 200 mg Cyclobenzaprine HCl (Flexeril) 10 mg PO HS [facility] Last Admin: 11/26/16 21:29 Dose: 10 mg Enoxaparin Sodium (Lovenox) 40 mg SC DAILY [facility] Last Admin: 11/27/16 10:04 Dose: Not Given Folic Acid (Folic Acid) 1 mg PO DAILY [facility] Last Admin: 11/27/16 10:04 Dose: 1 mg Home Med (Mometasone/Formoterol [Dulera 200 Mcg/5 Mcg Inhaler]) 2 puff IH RBID [facility] Last Admin: 11/26/16 16:41 Dose: Not Given Metronidazole (Flagyl) 500 mg in 100 mls @ 100 mls/hr IVPB Q8H [facility] Last Admin: 11/27/16 08:02 Dose: 100 mls/hr Sodium Chloride (Sodium Chloride 0.9%) 1,000 mls @ 100 mls/hr IV .Q10H [facility] Last Admin: 11/27/16 08:00 Dose: Not Given Ciprofloxacin (Cipro 400mg/200ml Dsw) 400 mg in 200 mls @ 133 mls/hr IVPB Q12H [facility] Last Admin: 11/27/16 06:18 Dose: 133 mls/hr Multivitamins (Hexavitamin) 1 tab PO DAILY [facility] Last Admin: 11/27/16 10:03 Dose: 1 tab Nicotine (Nicoderm Cq) 1 patch TD DAILY [facility] Last Admin: 11/27/16 10:03 Dose: 1 patch Oxycodone/Acetaminophen (Percocet 5/325 Mg Tab) 1 tab PO Q4H PRN PRN Reason: Pain, moderate (4-7) Stop: 11/30/16 00:11 Last Admin: 11/27/16 10:03 Dose: 1 tab Pantoprazole Sodium (Protonix Ec Tab) 40 mg PO Q24H [facility] Last Admin: 11/27/16 08:02 Dose: 40 mg Saccharomyces Boulardii (Florastor) 250 mg PO BID [facility] Last Admin: 11/27/16 10:03 Dose: 250 mg Thiamine HCl (Vitamin B1 Tab) 100 mg PO DAILY [facility] Last Admin: 11/27/16 10:03 Dose: 100 mg - Labs Labs: 11/27/16 06:29 11/27/16 06:29 Attending/Attestation - Attestation I have personally seen and examined this patient.: Yes I have fully participated in the care of the patient.: Yes I have reviewed all pertinent clinical information, including history, physical exam and plan: Yes Notes (Text): 11/27/16 15:00 Patient was seen and examined at bedside with the resident Patient is clinically improving We have added Flagyl per recommendations of GI I discussed the plan of care with the resident and agree with the history and physical and assessment/plan by the resident.
[2016-11-26] MEDS: MOMETASONE IH SCH (16:41)
[2016-11-26] MEDS: FORMOTEROL IH SCH (16:41)
[2016-11-26] MEDS ORDERED: Ciprofloxacin 400mg/200ml D5W 400 MG/200 ML BAG IVPB SCH (17:31)
[2016-11-26] MEDS: Ciprofloxacin 400mg/200ml D5W 400 MG/200 ML BAG IVPB SCH (19:33)
[2016-11-26] MEDS ORDERED: Magnesium Sulfate 1 gm in D5W 1 GM/100 ML BAG IVPB ONE (19:37)
[2016-11-26 20:39] LABS: ALBUMIN 2.4 g/dL (3.5-5.0)
[2016-11-26 20:42] LABS: ALB/GLOB RATIO 0.8 (1.0-2.1); ALT/SGPT 28 U/L (9-52); AST/SGOT 22 U/L (14-36); BLOOD UREA NITROGEN 20 mg/dL (7-17); GFR AFRICAN-AMERICAN > 60; GFR NON-AFRICAN AMERICAN 50
[2016-11-26 20:43] LABS: CALCIUM 7.4 mg/dl (8.6-10.4)
[2016-11-27] MEDS: Oxycodone/Acetaminophen 5/325 mg Tab PO PRN ×3 (00:35→16:41)
[2016-11-27] MEDS: metroNIDAZOLE IV 500 mg/100 ml 500 MG/100 ML BAG IVPB SCH ×3 (00:44→17:30)
[2016-11-27] MEDS: Ciprofloxacin 400mg/200ml D5W 400 MG/200 ML BAG IVPB SCH ×2 (06:18→19:41)
[2016-11-27 06:43] LABS: BASO % 0.1 % (0.0-2.0); EOS # 0.1 K/uL (0.0-0.7); EOS % 0.9 % (0.0-4.0); HEMOGLOBIN 12.7 g/dL (11.0-16.0); LYMPH # 2.4 K/uL (1.0-4.3); LYMPH % 15.7 % (20.0-40.0); MEAN CORPUSCULAR HEMOGLOBIN 30.8 pg (27.0-31.0); MEAN CORPUSCULAR HGB CONC 32.8 g/dL (33.0-37.0); MEAN PLATELET VOLUME 7.8 fL (7.2-11.7); MONO # 0.9 K/uL (0.0-0.8); MONO % 5.7 % (0.0-10.0); NEUT # 11.6 K/uL (1.8-7.0); NEUT % 77.6 % (50.0-75.0); RBC 4.14 Mil/uL (3.80-5.20); RED CELL DISTRIBUTION WIDTH 13.6 % (11.5-14.5)
[2016-11-27 07:30] LABS: ALBUMIN 2.6 g/dL (3.5-5.0)
[2016-11-27 07:32] LABS: AST/SGOT 28 U/L (14-36); GFR AFRICAN-AMERICAN > 60; GFR NON-AFRICAN AMERICAN 56
[2016-11-27 07:33] LABS: ALB/GLOB RATIO 0.8 (1.0-2.1); ALT/SGPT 24 U/L (9-52); BLOOD UREA NITROGEN 18 mg/dL (7-17); CALCIUM 7.6 mg/dl (8.6-10.4)
[2016-11-27 07:34] LABS: MAGNESIUM 1.8 mg/dL (1.6-2.3)
[2016-11-27] MEDS: Sodium Chloride 0.9% 1,000 ML IV SCH ×3 (08:00→22:32)
[2016-11-27] MEDS: Pantoprazole 40 mg EC Tab PO SCH (08:02)
[2016-11-27] MEDS: Multiple Vitamins Tab PO SCH (10:03)
[2016-11-27] MEDS: Saccharomyces Boulardi 250 mg Cap PO SCH ×2 (10:03→17:55)
[2016-11-27] MEDS: Enoxaparin 40 mg Syringe SC SCH (10:04)
[2016-11-27] MEDS: Potassium Chloride 20 mEq ER Tab PO ONE ×2 (10:10→10:34)
[2016-11-27 12:58] LABS: VITAMIN C 0.2 mg/dL (0.2-1.5)
--- NOTE | 2016-11-27 12:58 | CP.PCM.PN ---
Subjective - Date & Time of Evaluation Date of Evaluation: 11/27/16 Time of Evaluation: 12:30 - Subjective Subjective: F/U diarrhea. Reports has diarrhea. Less abdom pain. Denies fever, chills, SZ, LOC, PRICE, coufg, PRICE, Cp <SOB, Rb, melena Objective - Vital Signs/Intake and Output Vital Signs (last 24 hours): Temp Pulse Resp BP Pulse Ox 97.5 F L 109 H 18 103/74 99 11/27/16 08:08 11/27/16 08:08 11/27/16 08:08 11/27/16 08:08 11/27/16 08:08 Intake and Output: 11/27/16 11/27/16 06:59 18:59 Intake Total 700 Balance 700 - Medications Medications: Current Medications Albuterol (Ventolin Hfa 90 Mcg/Actuation (8 G)) 2 puff IH RQ6 PRN PRN Reason: Wheezing Amlodipine Besylate (Norvasc) 5 mg PO DAILY [facility] Last Admin: 11/27/16 10:03 Dose: 5 mg Celecoxib (Celebrex) 200 mg PO BID [facility] Last Admin: 11/27/16 10:03 Dose: 200 mg Cyclobenzaprine HCl (Flexeril) 10 mg PO HS [facility] Last Admin: 11/26/16 21:29 Dose: 10 mg Enoxaparin Sodium (Lovenox) 40 mg SC DAILY [facility] Last Admin: 11/27/16 10:04 Dose: Not Given Folic Acid (Folic Acid) 1 mg PO DAILY [facility] Last Admin: 11/27/16 10:04 Dose: 1 mg Home Med (Mometasone/Formoterol [Dulera 200 Mcg/5 Mcg Inhaler]) 2 puff IH RBID [facility] Last Admin: 11/26/16 16:41 Dose: Not Given Metronidazole (Flagyl) 500 mg in 100 mls @ 100 mls/hr IVPB Q8H [facility] Last Admin: 11/27/16 08:02 Dose: 100 mls/hr Sodium Chloride (Sodium Chloride 0.9%) 1,000 mls @ 100 mls/hr IV .Q10H [facility] Last Admin: 11/27/16 08:00 Dose: Not Given Ciprofloxacin (Cipro 400mg/200ml Dsw) 400 mg in 200 mls @ 133 mls/hr IVPB Q12H [facility] Last Admin: 11/27/16 06:18 Dose: 133 mls/hr Multivitamins (Hexavitamin) 1 tab PO DAILY [facility] Last Admin: 11/27/16 10:03 Dose: 1 tab Nicotine (Nicoderm Cq) 1 patch TD DAILY [facility] Last Admin: 11/27/16 10:03 Dose: 1 patch Oxycodone/Acetaminophen (Percocet 5/325 Mg Tab) 1 tab PO Q4H PRN PRN Reason: Pain, moderate (4-7) Stop: 11/30/16 00:11 Last Admin: 11/27/16 10:03 Dose: 1 tab Pantoprazole Sodium (Protonix Ec Tab) 40 mg PO Q24H [facility] Last Admin: 11/27/16 08:02 Dose: 40 mg Saccharomyces Boulardii (Florastor) 250 mg PO BID [facility] Last Admin: 11/27/16 10:03 Dose: 250 mg Thiamine HCl (Vitamin B1 Tab) 100 mg PO DAILY [facility] Last Admin: 11/27/16 10:03 Dose: 100 mg - Labs Labs: 11/27/16 06:29 11/27/16 06:29 - Constitutional Appears: Non-toxic - Respiratory Exam Respiratory Exam: Clear to Ausculation Bilateral - Cardiovascular Exam Cardiovascular Exam: RRR - GI/Abdominal Exam GI & Abdominal Exam: Soft, Tenderness, Normal Bowel Sounds. absent: Guarding Additional comments: Mild mid tenderness - Extremities Exam Extremities Exam: absent: Calf Tenderness - Neurological Exam Neurological Exam: Alert, Oriented x3 - Skin Skin Exam: Intact Assessment and Plan (1) Acute kidney injury Status: Acute (2) Diarrhea Assessment & Plan: salmonella. Status: Acute (3) Dizziness Status: Acute (4) Headache Status: Acute (5) History of COPD Status: Acute (6) History of abdominal hernia Status: Acute (7) History of alcohol abuse Status: Acute (8) History of arthritis Status: Acute (9) History of chronic back pain Status: Acute (10) History of weight loss surgery Status: Acute (11) Hypertension Status: Acute (12) Hypokalemia Status: Acute (13) Leucocytosis Status: Acute (14) Pharyngitis Status: Acute (15) Urinary tract infection Status: Acute (16) Salmonella Assessment & Plan: on cipro. F/u diarrhea and WBC Status: Acute
[2016-11-27] MEDS: FORMOTEROL IH SCH (20:37)
[2016-11-27] MEDS: MOMETASONE IH SCH (20:37)
--- NOTE | 2016-11-27 20:38 | CP.PCM.PN ---
<Hunter León E - Last Filed: 11/27/16 20:54> Subjective - Date & Time of Evaluation Date of Evaluation: 11/27/16 Time of Evaluation: 07:45 - Subjective Subjective: Medicine Note ( PGY 1) : Dr. Ramon's Service Patient was seen and examined at bedside. Patient reports that she is doing well with minimal weakness. Patient continues to increase PO intake. Patient denies chest pain, dyspnea, abdominal pain, nausea, vomiting, headache, fever and chills but still admits to episodes of very loose (liquid form) stool. Patient is ambulating. Objective - Vital Signs/Intake and Output Vital Signs (last 24 hours): Temp Pulse Resp BP Pulse Ox 97.6 F 109 H 20 111/76 100 11/27/16 15:20 11/27/16 15:20 11/27/16 15:20 11/27/16 15:20 11/27/16 15:20 Intake and Output: 11/27/16 11/28/16 18:59 06:59 Intake Total 1300 Balance 1300 - Medications Medications: Current Medications Albuterol (Ventolin Hfa 90 Mcg/Actuation (8 G)) 2 puff IH RQ6 PRN PRN Reason: Wheezing Amlodipine Besylate (Norvasc) 5 mg PO DAILY [facility] Last Admin: 11/27/16 10:03 Dose: 5 mg Celecoxib (Celebrex) 200 mg PO BID [facility] Last Admin: 11/27/16 18:07 Dose: 200 mg Cyclobenzaprine HCl (Flexeril) 10 mg PO HS [facility] Last Admin: 11/26/16 21:29 Dose: 10 mg Enoxaparin Sodium (Lovenox) 40 mg SC DAILY [facility] Last Admin: 11/27/16 10:04 Dose: Not Given Folic Acid (Folic Acid) 1 mg PO DAILY [facility] Last Admin: 11/27/16 10:04 Dose: 1 mg Home Med (Mometasone/Formoterol [Dulera 200 Mcg/5 Mcg Inhaler]) 2 puff IH RBID [facility] Last Admin: 11/26/16 16:41 Dose: Not Given Metronidazole (Flagyl) 500 mg in 100 mls @ 100 mls/hr IVPB Q8H [facility] Last Admin: 11/27/16 17:30 Dose: 100 mls/hr Sodium Chloride (Sodium Chloride 0.9%) 1,000 mls @ 100 mls/hr IV .Q10H [facility] Last Admin: 11/27/16 18:00 Dose: Not Given Ciprofloxacin (Cipro 400mg/200ml Dsw) 400 mg in 200 mls @ 133 mls/hr IVPB Q12H [facility] Last Admin: 11/27/16 19:41 Dose: 133 mls/hr Multivitamins (Hexavitamin) 1 tab PO DAILY [facility] Last Admin: 11/27/16 10:03 Dose: 1 tab Nicotine (Nicoderm Cq) 1 patch TD DAILY [facility] Last Admin: 11/27/16 10:03 Dose: 1 patch Oxycodone/Acetaminophen (Percocet 5/325 Mg Tab) 1 tab PO Q4H PRN PRN Reason: Pain, moderate (4-7) Stop: 11/30/16 00:11 Last Admin: 11/27/16 16:41 Dose: 1 tab Pantoprazole Sodium (Protonix Ec Tab) 40 mg PO Q24H [facility] Last Admin: 11/27/16 08:02 Dose: 40 mg Saccharomyces Boulardii (Florastor) 250 mg PO BID [facility] Last Admin: 11/27/16 17:55 Dose: 250 mg Thiamine HCl (Vitamin B1 Tab) 100 mg PO DAILY [facility] Last Admin: 11/27/16 10:03 Dose: 100 mg - Labs Labs: 11/27/16 06:29 11/27/16 06:29 - Constitutional Appears: Well, No Acute Distress - Head Exam Head Exam: NORMAL INSPECTION, NORMOCEPHALIC - Eye Exam Eye Exam: EOMI, Normal appearance - ENT Exam ENT Exam: Mucous Membranes Moist, Normal Exam - Respiratory Exam Respiratory Exam: Clear to Ausculation Bilateral, NORMAL BREATHING PATTERN - Cardiovascular Exam Cardiovascular Exam: REGULAR RHYTHM, +S1, +S2 - GI/Abdominal Exam GI & Abdominal Exam: Soft, Normal Bowel Sounds - Extremities Exam Extremities Exam: Normal Capillary Refill, Normal Inspection - Neurological Exam Neurological Exam: Alert, Awake, Oriented x3 - Psychiatric Exam Psychiatric exam: Normal Affect, Normal Mood - Skin Skin Exam: Dry, Normal Color, Warm Assessment and Plan (1) Leucocytosis Assessment & Plan: Afebrile With Bandemia On admission (11/25/16): - WBC 12.2---> 11.1 (11/24/16)--->14.5 (11/25/16)---> 10.7 (11/26/16)---> 15 () - Bands 39---> 20(11/24/16)---> 16 (11/25/16): Improving - Lactic Acid 1.6 on presentation -Blood culture: No growth to date Possibly secondary to UTI UA (11/23/16): 2+ LE, Positive Nitrites, 25 WBC, Many bacteria Urine culture (11/23/16): Gram negative jeni. Salmonella Group B * Zosyn 2.25gm IVPB Q8H ( Day 2, started on 11/23/16)----> Changed to Ciprofloxacin 400mg IV BID (11/25/16, Day 2) * NS @ 125cc/hr * Possibly secondary to Gastroenteritis * C-Diff Ag&Toxin: Negative (11/23/16) * Ova and Parasite: No ova and parasite seen * Stool Culture: + Gram negative jeni, Salmonella Group B - Continue on Flagyl 500mg IV Q8H ( Day 2)-->11/25/16 Imaging: Chest X- ray (11/23/16) - no focal consolidation, pleural effusion or pneumothorax Status: Acute (2) Urinary tract infection Assessment & Plan: Asymptomatic On admission (11/25/16): - WBC 12.2---> 11.1 (11/24/16)--->14.5 (11/25/16)---> 10.7 (11/26/16): Improving - Bands 39---> 20(11/24/16)---> 16 (11/25/16): Improving UA (11/23/16): 2+ LE, Positive Nitrites, 25 WBC, Many bacteria Urine culture (11/23/16): Gram negative jeni ( Salmonella Group B) * Zosyn 2.25gm IVPB Q8H ( Day 2, started on 11/23/16)---> changed to ciprofloxacin 400mg IV BID (11/25/16, Day 2) * NS @ 125cc/hr Status: Acute (3) Pharyngitis Assessment & Plan: Resolved Zosyn 2.25gm IV Q8H ---> Discontinued on 11/26/16 - Discontinue Rocephin 1gm IVPB daily- day 1 ENT consult - Dr. Mccauley ( Help appreciated) - no evidence of acute pharyngitis, tonsils WNL - signed off Status: Acute (4) Diarrhea Assessment & Plan: Ongoing GI consult ( Dr. Dixon)----> Help appreciated As per GI recommendation: Consider adding flagyl and probiotics; Started Flagy 500mg IV Q8H * Stool Culture: Gram negative jeni, Salmonella Group B (11/25/16) * C-Diff Ag&Toxin: Negative (11/23/16) * Ova and Parasite: No ova and parasite seen * NS @ 125cc/hr * Continue on Flagyl 500mg IV Q8H ( Day 2)-->11/25/16 Status: Acute (5) Malnutrition Assessment & Plan: Albumin 3.2---> 2.5(11/24/16)----> 2.2(11/25/16) Full liquid diet ( Renal Diet)--> Switched to heart healthy diet B12: > 1000 (elevated) Vit D: WNL Folate: WNL Pending Vit C level Patient is continues to increase PO intake Status: Acute (6) Hypokalemia Assessment & Plan: Possibly secondary to diarrhea K 3.5 on AM recheck * Repleted with Kdur 40meq PO * Monitor K+ levels closely Status: Acute (7) Acute kidney injury Assessment & Plan: Improving, stable Possibly secondary to dehydration On admission (11/23/16): BUN/CR: 53/2.3---> 42/1.7(11/24/16)---> 39/1.7(11/25/16)---> 30/1.4 (11/26/16)---> 18/1.0(11/27/16) Continue NS @ 125cc/hr Status: Acute (8) Headache Assessment & Plan: Resolved Head CT 11/23/16: No acute intracranial pathology identified. Status: Acute (9) Hypertension Assessment & Plan: Well controlled * Continue home norvasc 5mg PO daily Status: Acute (10) History of weight loss surgery Assessment & Plan: Vitamins WNL Status: Acute (11) History of COPD Assessment & Plan: Continue Albuterol inhaler 2 puff IH RQ6 PRN Status: Acute (12) History of abdominal hernia Assessment & Plan: F/U with Dr. Conte outpatient Status: Acute (13) History of alcohol abuse Assessment & Plan: Alcohol level on admission: <10 alcohol withdrawal assessments Q1 Thiamine 100mg PO daily Folic Acid 1mg PO daily MVI daily Status: Acute (14) History of tobacco abuse Assessment & Plan: Nicotine 14mg/24 hour TD daily Status: Acute (15) History of chronic back pain Assessment & Plan: Continue home medications: * Flexeril 10mg PO HS * Celebrex 200mg PO BID * Percocet 5/325mg PO Q4H PRN pain Status: Acute (16) History of arthritis Assessment & Plan: Continue home medication: * Celebrex 200mg PO BID Status: Acute (17) Prophylactic measure Assessment & Plan: Ambulating Florastor 250mg PO BID Lovenox 40mg SC daily Protonix 40mg PO daily Status: Acute <Shad Ramon M - Last Filed: 11/28/16 15:34> Objective - Vital Signs/Intake and Output Vital Signs (last 24 hours): Temp Pulse Resp BP Pulse Ox 97.7 F 96 H 18 110/75 97 11/28/16 07:00 11/28/16 07:00 11/28/16 07:00 11/28/16 07:00 11/28/16 07:00 Intake and Output: 11/28/16 11/28/16 06:59 18:59 Intake Total 2020 Balance 2020 - Medications Medications: Current Medications Albuterol (Ventolin Hfa 90 Mcg/Actuation (8 G)) 2 puff IH RQ6 PRN PRN Reason: Wheezing Amlodipine Besylate (Norvasc) 5 mg PO DAILY [facility] Last Admin: 11/28/16 09:28 Dose: 5 mg Celecoxib (Celebrex) 200 mg PO BID [facility] Last Admin: 11/28/16 09:27 Dose: 200 mg Cyclobenzaprine HCl (Flexeril) 10 mg PO HS [facility] Last Admin: 11/27/16 22:32 Dose: 10 mg Enoxaparin Sodium (Lovenox) 40 mg SC DAILY [facility] Last Admin: 11/28/16 09:28 Dose: Not Given Folic Acid (Folic Acid) 1 mg PO DAILY [facility] Last Admin: 11/28/16 09:27 Dose: 1 mg Home Med (Mometasone/Formoterol [Dulera 200 Mcg/5 Mcg Inhaler]) 2 puff IH RBID [facility] Last Admin: 11/27/16 20:37 Dose: Not Given Metronidazole (Flagyl) 500 mg in 100 mls @ 100 mls/hr IVPB Q8H [facility] Last Admin: 11/28/16 08:07 Dose: 100 mls/hr Sodium Chloride (Sodium Chloride 0.9%) 1,000 mls @ 100 mls/hr IV .Q10H [facility] Last Admin: 11/28/16 03:47 Dose: Not Given Ciprofloxacin (Cipro 400mg/200ml Dsw) 400 mg in 200 mls @ 133 mls/hr IVPB Q12H [facility] Last Admin: 11/28/16 06:00 Dose: 133 mls/hr Multivitamins (Hexavitamin) 1 tab PO DAILY [facility] Last Admin: 11/28/16 09:28 Dose: 1 tab Nicotine (Nicoderm Cq) 1 patch TD DAILY [facility] Last Admin: 11/28/16 09:28 Dose: 1 patch Oxycodone/Acetaminophen (Percocet 5/325 Mg Tab) 1 tab PO Q4H PRN PRN Reason: Pain, moderate (4-7) Stop: 11/30/16 00:11 Last Admin: 11/28/16 15:00 Dose: 1 tab Pantoprazole Sodium (Protonix Ec Tab) 40 mg PO Q24H [facility] Last Admin: 11/28/16 08:06 Dose: 40 mg Saccharomyces Boulardii (Florastor) 250 mg PO BID [facility] Last Admin: 11/28/16 09:27 Dose: 250 mg Thiamine HCl (Vitamin B1 Tab) 100 mg PO DAILY [facility] Last Admin: 11/28/16 09:28 Dose: 100 mg - Labs Labs: 11/28/16 06:55 11/28/16 06:55 Attending/Attestation - Attestation I have personally seen and examined this patient.: Yes I have fully participated in the care of the patient.: Yes I have reviewed all pertinent clinical information, including history, physical exam and plan: Yes Notes (Text): 11/28/16 15:34 Patient was seen and examined at bedside with the resident Patient is clinically improving however her WBC count jump 15,000 today We will continue to observe the patient in the hospital We will continue antibiotics. Patient is on IV Flagyl and IV Cipro floxacillin I discussed the plan of care with the resident and agree with the patient and physical and assessment/plan documented above.
[2016-11-28] MEDS: Oxycodone/Acetaminophen 5/325 mg Tab PO PRN ×3 (00:29→15:00)
[2016-11-28] MEDS: metroNIDAZOLE IV 500 mg/100 ml 500 MG/100 ML BAG IVPB SCH ×2 (00:31→08:07)
[2016-11-28] MEDS: Sodium Chloride 0.9% 1,000 ML IV SCH (03:47)
[2016-11-28] MEDS: Ciprofloxacin 400mg/200ml D5W 400 MG/200 ML BAG IVPB SCH (06:00)
[2016-11-28 07:19] LABS: BASO % 0.2 % (0.0-2.0); EOS # 0.1 K/uL (0.0-0.7); EOS % 0.9 % (0.0-4.0); LYMPH # 1.8 K/uL (1.0-4.3); LYMPH % 14.3 % (20.0-40.0); MEAN CELL VOLUME 93.7 fL (81.0-99.0); MEAN CORPUSCULAR HEMOGLOBIN 30.9 pg (27.0-31.0); MEAN PLATELET VOLUME 7.5 fL (7.2-11.7); MONO # 0.9 K/uL (0.0-0.8); MONO % 7.2 % (0.0-10.0); NEUT # 9.7 K/uL (1.8-7.0); NEUT % 77.4 % (50.0-75.0); RBC 3.9 Mil/uL (3.80-5.20); RED CELL DISTRIBUTION WIDTH 13.4 % (11.5-14.5); WHITE BLOOD COUNT 12.6 K/uL (4.8-10.8)
[2016-11-28 07:35] LABS: ALBUMIN 2.4 g/dL (3.5-5.0); ALT/SGPT 29 U/L (9-52); AST/SGOT 28 U/L (14-36); BLOOD UREA NITROGEN 15 mg/dL (7-17); CALCIUM 7.4 mg/dl (8.6-10.4); GFR AFRICAN-AMERICAN > 60; GFR NON-AFRICAN AMERICAN > 60; MAGNESIUM 1.6 mg/dL (1.6-2.3)
[2016-11-28 07:37] LABS: ALB/GLOB RATIO 0.8 (1.0-2.1)
[2016-11-28] MEDS: Pantoprazole 40 mg EC Tab PO SCH (08:06)
[2016-11-28 08:08] VITALS: BP 110/75; PULSE 96; RESP 18; TEMP 97.7; O2SAT 97
[2016-11-28] MEDS ORDERED: Magnesium Sulfate 1 gm in D5W 1 GM/100 ML BAG IVPB ONE (08:12)
--- NOTE | 2016-11-28 08:13 | CP.PCM.PN ---
Subjective - Date & Time of Evaluation Date of Evaluation: 11/28/16 Time of Evaluation: 08:13 - Subjective Subjective: Medicine Note ( PGY 1) : Dr. Ramon's Service Patient was seen and examined at bedside. Patient reports that she is Objective - Vital Signs/Intake and Output Vital Signs (last 24 hours): Temp Pulse Resp BP Pulse Ox 97.7 F 96 H 18 110/75 97 11/28/16 07:00 11/28/16 07:00 11/28/16 07:00 11/28/16 07:00 11/28/16 07:00 Intake and Output: 11/28/16 11/28/16 06:59 18:59 Intake Total 2019 Balance 2019 - Medications Medications: Current Medications Albuterol (Ventolin Hfa 90 Mcg/Actuation (8 G)) 2 puff IH RQ6 PRN PRN Reason: Wheezing Amlodipine Besylate (Norvasc) 5 mg PO DAILY [facility] Last Admin: 11/27/16 10:03 Dose: 5 mg Celecoxib (Celebrex) 200 mg PO BID [facility] Last Admin: 11/27/16 18:07 Dose: 200 mg Cyclobenzaprine HCl (Flexeril) 10 mg PO HS [facility] Last Admin: 11/27/16 22:32 Dose: 10 mg Enoxaparin Sodium (Lovenox) 40 mg SC DAILY [facility] Last Admin: 11/27/16 10:04 Dose: Not Given Folic Acid (Folic Acid) 1 mg PO DAILY [facility] Last Admin: 11/27/16 10:04 Dose: 1 mg Home Med (Mometasone/Formoterol [Dulera 200 Mcg/5 Mcg Inhaler]) 2 puff IH RBID [facility] Last Admin: 11/27/16 20:37 Dose: Not Given Metronidazole (Flagyl) 500 mg in 100 mls @ 100 mls/hr IVPB Q8H [facility] Last Admin: 11/28/16 08:07 Dose: 100 mls/hr Sodium Chloride (Sodium Chloride 0.9%) 1,000 mls @ 100 mls/hr IV .Q10H [facility] Last Admin: 11/28/16 03:47 Dose: Not Given Ciprofloxacin (Cipro 400mg/200ml Dsw) 400 mg in 200 mls @ 133 mls/hr IVPB Q12H [facility] Last Admin: 11/28/16 06:00 Dose: 133 mls/hr Magnesium Sulfate/Dextrose (Magnesium Sulfate 1 Gm/100 Ml D5w) 1 gm in 100 mls @ 100 mls/hr IVPB ONCE ONE Stop: 11/28/16 09:11 Multivitamins (Hexavitamin) 1 tab PO DAILY [facility] Last Admin: 11/27/16 10:03 Dose: 1 tab Nicotine (Nicoderm Cq) 1 patch TD DAILY [facility] Last Admin: 11/27/16 10:03 Dose: 1 patch Oxycodone/Acetaminophen (Percocet 5/325 Mg Tab) 1 tab PO Q4H PRN PRN Reason: Pain, moderate (4-7) Stop: 11/30/16 00:11 Last Admin: 11/28/16 08:06 Dose: 1 tab Pantoprazole Sodium (Protonix Ec Tab) 40 mg PO Q24H [facility] Last Admin: 11/28/16 08:06 Dose: 40 mg Potassium Chloride (K-Dur 20 Meq Er Tab) 40 meq PO ONCE ONE Stop: 11/28/16 09:01 Saccharomyces Boulardii (Florastor) 250 mg PO BID [facility] Last Admin: 11/27/16 17:55 Dose: 250 mg Thiamine HCl (Vitamin B1 Tab) 100 mg PO DAILY [facility] Last Admin: 11/27/16 10:03 Dose: 100 mg - Labs Labs: 11/28/16 06:55 11/28/16 06:55
[2016-11-28] MEDS ORDERED: Potassium Chloride 20 mEq ER Tab PO ONE (09:00)
[2016-11-28] MEDS: Saccharomyces Boulardi 250 mg Cap PO SCH (09:27)
[2016-11-28] MEDS: Multiple Vitamins Tab PO SCH (09:28)
[2016-11-28] MEDS: Enoxaparin 40 mg Syringe SC SCH (09:28)
--- NOTE | 2016-11-28 12:37 | CP.PCM.DIS ---
<Deon Garcia - Last Filed: 11/28/16 23:26> Provider - Provider Date of Admission: 11/23/16 13:31 Attending physician: Shad Ramon MD Primary care physician: Daysi Consults: Ady: BRADLEY Tepler: GI Time Spent in preparation of Discharge (in minutes): 40 Diagnosis - Discharge Diagnosis (1) Pharyngitis Status: Acute Comment: Started on Rocephin initially. - Dr. Mccauley ENT consult. - no infection detected (2) Salmonellosis Status: Acute Comment: Treated with cipro/flagyl. - discharged with one week of both antibiotics (3) Urinary tract infection Status: Acute Comment: UA: 2+ LE, + nitrites, 25 WBC, Bacteria present. treated with IV abx. Zosyn, then cipro Hospital Course - Lab Results Lab Results: Micro Results 11/23/16 14:45 Blood-Venous Blood Culture - Preliminary NO GROWTH AFTER 4 DAYS 11/23/16 15:15 Blood-Venous Blood Culture - Preliminary NO GROWTH AFTER 3 DAYS 11/23/16 19:26 Urine Urine Culture - Final Salmonella Group B 11/23/16 18:30 Stool Stool Culture - Final Salmonella Group B 11/23/16 18:30 Rectum Ova and Parasite Concentrate Exam - Final Most Recent Lab Values WBC 12.6 K/uL (4.8-10.8) H 11/28/16 06:55 RBC 3.90 Mil/uL (3.80-5.20) 11/28/16 06:55 Hgb 12.0 g/dL (11.0-16.0) 11/28/16 06:55 Hct 36.5 % (34.0-47.0) 11/28/16 06:55 MCV 93.7 fL (81.0-99.0) 11/28/16 06:55 MCH 30.9 pg (27.0-31.0) 11/28/16 06:55 MCHC 33.0 g/dL (33.0-37.0) 11/28/16 06:55 RDW 13.4 % (11.5-14.5) 11/28/16 06:55 Plt Count 227 K/uL (130-400) 11/28/16 06:55 MPV 7.5 fL (7.2-11.7) 11/28/16 06:55 Neut % (Auto) 77.4 % (50.0-75.0) H 11/28/16 06:55 Lymph % (Auto) 14.3 % (20.0-40.0) L 11/28/16 06:55 [place] % (Auto) 7.2 % (0.0-10.0) 11/28/16 06:55 Eos % (Auto) 0.9 % (0.0-4.0) 11/28/16 06:55 Baso % (Auto) 0.2 % (0.0-2.0) 11/28/16 06:55 Neut # 9.7 K/uL (1.8-7.0) H 11/28/16 06:55 Lymph # 1.8 K/uL (1.0-4.3) 11/28/16 06:55 [place] # 0.9 K/uL (0.0-0.8) H 11/28/16 06:55 Eos # 0.1 K/uL (0.0-0.7) 11/28/16 06:55 Baso # 0.0 K/uL (0.0-0.2) 11/28/16 06:55 Neutrophils % (Manual) 68 % (50-75) 11/25/16 06:39 Band Neutrophils % 16 % (0-2) H* 11/25/16 06:39 Lymphocytes % (Manual) 8 % (20-40) L 11/25/16 06:39 Monocytes % (Manual) 8 % (0-10) 11/25/16 06:39 Eosinophils % (Manual) 1 % (0-4) 11/24/16 11:56 Myelocytes % 1 % (0-0) H 11/24/16 11:56 Platelet Estimate Normal (NORMAL) 11/25/16 06:39 Large Platelets Present 11/25/16 06:39 Giant Platelets Present 11/23/16 12:41 RBC Morphology Normal 11/24/16 11:56 Poikilocytosis (manual Slight 11/25/16 06:39 Meghann Cells Slight 11/25/16 06:39 pO2 26 mm/Hg (30-55) L 11/23/16 15:21 VBG pH 7.28 (7.32-7.43) L 11/23/16 15:21 VBG pCO2 42 mmHg (40-60) 11/23/16 15:21 VBG HCO3 18.0 mmol/L 11/23/16 15:21 VBG Total CO2 21.0 mmol/L (22-28) L 11/23/16 15:21 VBG O2 Sat (Calc) 50.1 % (40-65) 11/23/16 15:21 VBG Base Excess -6.8 mmol/L (0.0-2.0) L 11/23/16 15:21 VBG Potassium 2.7 mmol/L (3.6-5.2) L 11/23/16 15:21 Sodium 133.0 mmol/l (132-148) 11/23/16 15:21 Chloride 101.0 mmol/L (98-107) 11/23/16 15:21 Glucose 104 mg/dl (65-105) 11/23/16 15:21 Lactate 1.6 mmol/L (0.7-2.1) 11/23/16 15:21 Sodium 138 mmol/L (132-148) 11/28/16 06:55 Potassium 3.4 mmol/L (3.6-5.2) L 11/28/16 06:55 Chloride 113 mmol/L (98-107) H 11/28/16 06:55 Carbon Dioxide 14 mmol/L (22-30) L 11/28/16 06:55 Anion Gap 14 (10-20) 11/28/16 06:55 BUN 15 mg/dL (7-17) 11/28/16 06:55 Creatinine 0.9 MG/DL (0.7-1.2) 11/28/16 06:55 Est GFR ( Amer) > 60 11/28/16 06:55 Est GFR (Non-Af Amer) > 60 11/28/16 06:55 Random Glucose 74 mg/dL (65-105) 11/28/16 06:55 Calcium 7.4 mg/dl (8.6-10.4) L 11/28/16 06:55 Phosphorus 2.6 mg/dL (2.5-4.5) 11/28/16 06:55 Magnesium 1.6 mg/dL (1.6-2.3) 11/28/16 06:55 Total Bilirubin 0.6 mg/dL (0.2-1.3) 11/28/16 06:55 AST 28 U/L (14-36) 11/28/16 06:55 ALT 29 U/L (9-52) 11/28/16 06:55 Alkaline Phosphatase 108 U/L (38-126) 11/28/16 06:55 Total Creatine Kinase 40 U/L (30-135) 11/23/16 12:41 CK-MB (Mass) 0.63 ng/mL (0.0-3.38) 11/23/16 12:41 Troponin I < 0.0120 ng/mL (0.00-0.120) 11/23/16 12:41 Total Protein 5.6 g/dL (6.3-8.3) L 11/28/16 06:55 Albumin 2.4 g/dL (3.5-5.0) L 11/28/16 06:55 Globulin 3.2 gm/dL (2.2-3.9) 11/28/16 06:55 Albumin/Globulin Ratio 0.8 (1.0-2.1) L 11/28/16 06:55 Vitamin B12 > 1000 pg/mL (239-931) H 11/24/16 11:56 Vitamin C 0.2 mg/dL (0.2-1.5) 11/24/16 11:56 25-OH Vitamin D Total 40.6 NG/ML (30.0-100.0) 11/24/16 11:56 Folate > 20.0 ng/mL 11/24/16 11:56 Venous Blood Potassium 2.7 mmol/L (3.6-5.2) L 11/23/16 15:21 Urine Color Yellow (YELLOW) 11/23/16 19:26 Urine Clarity Hazy (Clear) 11/23/16 19:26 Urine pH 5.0 (5.0-8.0) 11/23/16 19:26 Ur Specific [place] 1.018 (1.003-1.030) 11/23/16 19:26 Urine Protein 1+ mg/dL (NEGATIVE) H 11/23/16 19:26 Urine Glucose (UA) Normal mg/dL (Normal) 11/23/16 19:26 Urine Ketones Negative mg/dL (NEGATIVE) 11/23/16 19:26 Urine Blood Negative (NEGATIVE) 11/23/16 19:26 Urine Nitrate Positive (NEGATIVE) H 11/23/16 19:26 Urine Bilirubin Negative (NEGATIVE) 11/23/16 19:26 Urine Urobilinogen Normal mg/dL (0.2-1.0) 11/23/16 19:26 Ur Leukocyte Esterase 2+ Elvira/uL (Negative) H 11/23/16 19:26 Urine WBC (Auto) 25 /hpf (0-5) H 11/23/16 19:26 Urine RBC (Auto) 1 /hpf (0-3) 11/23/16 19:26 Ur Squamous Epith Cells 4 /hpf (0-5) 11/23/16 19:26 Ur Transition Epith Cell < 1 /hpf (0-3) 11/23/16 19:26 Urine Bacteria Many (<OCC) H 11/23/16 19:26 Alcohol, Quantitative < 10 mg/dl (0-10) 11/23/16 19:52 C. difficile Ag & Toxin Negative (NEGATIVE) 11/25/16 Unknown Giardia Antigen Not detected (Not Detected) 11/23/16 08:16 HIV 1&2 Antibody Screen Negative (NEGATIVE) 11/25/16 14:14 - Hospital Course Hospital Course: On admission: Patient is a 61 year old female with PMHx of HTN, COPD, arthritis, abdominal hernias and multiple weight loss surgeries presenting for feeling dizzy and weak and not being able to eat for 10 days. Patient says she can drink fluids and swallow her pills. However, she says she cannot eat solid food because everything tastes bad to her. She says everything either tastes too salty or too bitter. She says this has caused her appetite to decrease and that she has only had water, gatorade and iced tea for the past 10 days. Patient reports associated clear liquid stool. Patient also reports severely dry mouth to the point of cracks in the skin around her lips. Patient denies nasal congestion, clogged ears, earache, sore throat, odynophagia, nausea, vomiting. Patient reports the worst headache of her life on Wednesday. She denies associates photophobia, vision change, extremity weakness. Patient says it went away on its own. Patient also reports new abdominal hernias since her having her gallbladder removed. She says she saw Dr. Conte on Wednesday who told her he will repair some of them, but she wants all of them repaired. Hospital course: Admitted on 11/23 for dizziness, weakness, and inability to eat for 10 days. Pt with leukocytosis and bands initially. CXR showing no acute disease. Leukocytosis initially felt due to pharyngitis vs gastroenteritis. UA showed evidence of UTI. Initially started on Rocephin, but changed to Zosyn by Dr. Richardson, the ENT consult. Dr. Richardson said no pharyngitis. Pt complaining of diarrhea - c diff negative, O&P negative. Dr. Dixon consulted, for GI, who recommended adding flagyl, and changing zosyn to cipro. Stool culture resulted on 11/25 and showed Gram negative jeni, which typed to Salmonella. Pts oral intake , and diarrhea improved. Afebrile. Discharged on 11/28 with week's worth of cipro /flagyl. Told to follow up with GI. - Date & Time of H&P Date of H&P: 11/23/16 Time of H&P: 18:32 Discharge Exam - Head Exam Head Exam: NORMAL INSPECTION, NORMOCEPHALIC - Eye Exam Eye Exam: EOMI, PERRL Pupil Exam: NORMAL ACCOMODATION - ENT Exam ENT Exam: Mucous Membranes Moist - Respiratory Exam Respiratory Exam: Clear to PA & Lateral, NORMAL BREATHING PATTERN - Cardiovascular Exam Cardiovascular Exam: REGULAR RHYTHM, +S1, +S2 - GI/Abdominal Exam GI & Abdominal Exam: Normal Bowel Sounds, Soft. absent: Distended, Tenderness - Extremities Exam Extremities exam: pedal pulses present - Neurological Exam Neurological exam: Alert, Oriented x3 - Psychiatric Exam Psychiatric exam: Normal Affect, Normal Mood - Skin Skin Exam: Dry, Normal Color, Warm Discharge Plan - Discharge Medications Prescriptions: Ciprofloxacin HCl [Cipro] 500 mg PO BID #14 tablet Metronidazole [Flagyl] 500 mg PO Q8H #21 tablet - Follow Up Plan Condition: GOOD Disposition: HOME/ ROUTINE Instructions: Acute Kidney Injury (DC), Acute Headache (DC), Hypertension (DC) , Hypertension (GEN) Additional Instructions: Pt deemed stable for discharge per Dr. Ramon. Pt may continue her home medications with the addition of the antibiotics Cipro and Flagyl. Pt should follow up with her PMD within one week's time regarding her hospitalization. Her PMD is Dr. Tavarez. Pt should also follow up with a laundry operator finishing of her choosing. She saw Dr. Waterman in the hospital, who made the recommendation of having repeat stool culture one month and one year after discharge. She should obtain hospital records from [facility] regarding this admission to bring with her. She should return to the ED if her symptoms return or worsen. Pt verbalized understanding to the above instructions. Medications prescribed: Cipro 500mg PO BID x 7 days Flagyl 500 mg Q8H x 7 days PLEASE COLLECT STOOL SPECIMEN FOR CULTURE ,A MONTH AFTER DISCHARGE. <Shad Ramon - Last Filed: 11/29/16 14:55> Provider - Provider Date of Admission: 11/23/16 13:31 Attending physician: Shad Ramon MD Hospital Course - Lab Results Lab Results: Micro Results 11/23/16 15:15 Blood-Venous Blood Culture - Final NO GROWTH AFTER 5 DAYS 11/23/16 15:15 Blood-Venous Gram Stain - Final TEST NOT PERFORMED 11/23/16 14:45 Blood-Venous Blood Culture - Final NO GROWTH AFTER 5 DAYS 11/23/16 14:45 Blood-Venous Gram Stain - Final TEST NOT PERFORMED 11/23/16 19:26 Urine Urine Culture - Final Salmonella Group B 11/23/16 18:30 Stool Stool Culture - Final Salmonella Group B 11/23/16 18:30 Rectum Ova and Parasite Concentrate Exam - Final Most Recent Lab Values WBC 12.6 K/uL (4.8-10.8) H 11/28/16 06:55 RBC 3.90 Mil/uL (3.80-5.20) 11/28/16 06:55 Hgb 12.0 g/dL (11.0-16.0) 11/28/16 06:55 Hct 36.5 % (34.0-47.0) 11/28/16 06:55 MCV 93.7 fL (81.0-99.0) 11/28/16 06:55 MCH 30.9 pg (27.0-31.0) 11/28/16 06:55 MCHC 33.0 g/dL (33.0-37.0) 11/28/16 06:55 RDW 13.4 % (11.5-14.5) 11/28/16 06:55 Plt Count 227 K/uL (130-400) 11/28/16 06:55 MPV 7.5 fL (7.2-11.7) 11/28/16 06:55 Neut % (Auto) 77.4 % (50.0-75.0) H 11/28/16 06:55 Lymph % (Auto) 14.3 % (20.0-40.0) L 11/28/16 06:55 [place] % (Auto) 7.2 % (0.0-10.0) 11/28/16 06:55 Eos % (Auto) 0.9 % (0.0-4.0) 11/28/16 06:55 Baso % (Auto) 0.2 % (0.0-2.0) 11/28/16 06:55 Neut # 9.7 K/uL (1.8-7.0) H 11/28/16 06:55 Lymph # 1.8 K/uL (1.0-4.3) 11/28/16 06:55 [place] # 0.9 K/uL (0.0-0.8) H 11/28/16 06:55 Eos # 0.1 K/uL (0.0-0.7) 11/28/16 06:55 Baso # 0.0 K/uL (0.0-0.2) 11/28/16 06:55 Neutrophils % (Manual) 68 % (50-75) 11/25/16 06:39 Band Neutrophils % 16 % (0-2) H* 11/25/16 06:39 Lymphocytes % (Manual) 8 % (20-40) L 11/25/16 06:39 Monocytes % (Manual) 8 % (0-10) 11/25/16 06:39 Eosinophils % (Manual) 1 % (0-4) 11/24/16 11:56 Myelocytes % 1 % (0-0) H 11/24/16 11:56 Platelet Estimate Normal (NORMAL) 11/25/16 06:39 Large Platelets Present 11/25/16 06:39 Giant Platelets Present 11/23/16 12:41 RBC Morphology Normal 11/24/16 11:56 Poikilocytosis (manual Slight 11/25/16 06:39 Meghann Cells Slight 11/25/16 06:39 pO2 26 mm/Hg (30-55) L 11/23/16 15:21 VBG pH 7.28 (7.32-7.43) L 11/23/16 15:21 VBG pCO2 42 mmHg (40-60) 11/23/16 15:21 VBG HCO3 18.0 mmol/L 11/23/16 15:21 VBG Total CO2 21.0 mmol/L (22-28) L 11/23/16 15:21 VBG O2 Sat (Calc) 50.1 % (40-65) 11/23/16 15:21 VBG Base Excess -6.8 mmol/L (0.0-2.0) L 11/23/16 15:21 VBG Potassium 2.7 mmol/L (3.6-5.2) L 11/23/16 15:21 Sodium 133.0 mmol/l (132-148) 11/23/16 15:21 Chloride 101.0 mmol/L (98-107) 11/23/16 15:21 Glucose 104 mg/dl (65-105) 11/23/16 15:21 Lactate 1.6 mmol/L (0.7-2.1) 11/23/16 15:21 Sodium 138 mmol/L (132-148) 11/28/16 06:55 Potassium 3.4 mmol/L (3.6-5.2) L 11/28/16 06:55 Chloride 113 mmol/L (98-107) H 11/28/16 06:55 Carbon Dioxide 14 mmol/L (22-30) L 11/28/16 06:55 Anion Gap 14 (10-20) 11/28/16 06:55 BUN 15 mg/dL (7-17) 11/28/16 06:55 Creatinine 0.9 MG/DL (0.7-1.2) 11/28/16 06:55 Est GFR ( Amer) > 60 11/28/16 06:55 Est GFR (Non-Af Amer) > 60 11/28/16 06:55 Random Glucose 74 mg/dL (65-105) 11/28/16 06:55 Calcium 7.4 mg/dl (8.6-10.4) L 11/28/16 06:55 Phosphorus 2.6 mg/dL (2.5-4.5) 11/28/16 06:55 Magnesium 1.6 mg/dL (1.6-2.3) 11/28/16 06:55 Total Bilirubin 0.6 mg/dL (0.2-1.3) 11/28/16 06:55 AST 28 U/L (14-36) 11/28/16 06:55 ALT 29 U/L (9-52) 11/28/16 06:55 Alkaline Phosphatase 108 U/L (38-126) 11/28/16 06:55 Total Creatine Kinase 40 U/L (30-135) 11/23/16 12:41 CK-MB (Mass) 0.63 ng/mL (0.0-3.38) 11/23/16 12:41 Troponin I < 0.0120 ng/mL (0.00-0.120) 11/23/16 12:41 Total Protein 5.6 g/dL (6.3-8.3) L 11/28/16 06:55 Albumin 2.4 g/dL (3.5-5.0) L 11/28/16 06:55 Globulin 3.2 gm/dL (2.2-3.9) 11/28/16 06:55 Albumin/Globulin Ratio 0.8 (1.0-2.1) L 11/28/16 06:55 Vitamin B12 > 1000 pg/mL (239-931) H 11/24/16 11:56 Vitamin C 0.2 mg/dL (0.2-1.5) 11/24/16 11:56 25-OH Vitamin D Total 40.6 NG/ML (30.0-100.0) 11/24/16 11:56 Folate > 20.0 ng/mL 11/24/16 11:56 Venous Blood Potassium 2.7 mmol/L (3.6-5.2) L 11/23/16 15:21 Urine Color Yellow (YELLOW) 11/23/16 19:26 Urine Clarity Hazy (Clear) 11/23/16 19:26 Urine pH 5.0 (5.0-8.0) 11/23/16 19:26 Ur Specific [place] 1.018 (1.003-1.030) 11/23/16 19:26 Urine Protein 1+ mg/dL (NEGATIVE) H 11/23/16 19:26 Urine Glucose (UA) Normal mg/dL (Normal) 11/23/16 19:26 Urine Ketones Negative mg/dL (NEGATIVE) 11/23/16 19:26 Urine Blood Negative (NEGATIVE) 11/23/16 19:26 Urine Nitrate Positive (NEGATIVE) H 11/23/16 19:26 Urine Bilirubin Negative (NEGATIVE) 11/23/16 19:26 Urine Urobilinogen Normal mg/dL (0.2-1.0) 11/23/16 19:26 Ur Leukocyte Esterase 2+ Elvira/uL (Negative) H 11/23/16 19:26 Urine WBC (Auto) 25 /hpf (0-5) H 11/23/16 19:26 Urine RBC (Auto) 1 /hpf (0-3) 11/23/16 19:26 Ur Squamous Epith Cells 4 /hpf (0-5) 11/23/16 19:26 Ur Transition Epith Cell < 1 /hpf (0-3) 11/23/16 19:26 Urine Bacteria Many (<OCC) H 11/23/16 19:26 Alcohol, Quantitative < 10 mg/dl (0-10) 11/23/16 19:52 C. difficile Ag & Toxin Negative (NEGATIVE) 11/25/16 Unknown Giardia Antigen Not detected (Not Detected) 11/23/16 08:16 HIV 1&2 Antibody Screen Negative (NEGATIVE) 11/25/16 14:14 Attending/Attestation - Attestation I have personally seen and examined this patient.: Yes I have fully participated in the care of the patient.: Yes I have reviewed all pertinent clinical information, including history, physical exam and plan: Yes Notes (Text): 11/29/16 14:55 Patient was seen and examined at bedside. Patient feeling much better We will discharge the patient on oral antibiotics Patient to follow with the primary medical doctor as outpatient I agree with the discharge note by the resident
--- NOTE | 2016-11-28 13:30 | CP.PCM.PN ---
Subjective - Date & Time of Evaluation Date of Evaluation: 11/28/16 Time of Evaluation: 13:27 - Subjective Subjective: Patient denies having abdominal pain, nausea, vomiting. She continues to complain of loose stools. Objective - Vital Signs/Intake and Output Vital Signs (last 24 hours): Temp Pulse Resp BP Pulse Ox 97.7 F 96 H 18 110/75 97 11/28/16 07:00 11/28/16 07:00 11/28/16 07:00 11/28/16 07:00 11/28/16 07:00 Intake and Output: 11/28/16 11/28/16 06:59 18:59 Intake Total 2020 Balance 2020 - Medications Medications: Current Medications Albuterol (Ventolin Hfa 90 Mcg/Actuation (8 G)) 2 puff IH RQ6 PRN PRN Reason: Wheezing Amlodipine Besylate (Norvasc) 5 mg PO DAILY [facility] Last Admin: 11/28/16 09:28 Dose: 5 mg Celecoxib (Celebrex) 200 mg PO BID [facility] Last Admin: 11/28/16 09:27 Dose: 200 mg Cyclobenzaprine HCl (Flexeril) 10 mg PO HS [facility] Last Admin: 11/27/16 22:32 Dose: 10 mg Enoxaparin Sodium (Lovenox) 40 mg SC DAILY [facility] Last Admin: 11/28/16 09:28 Dose: Not Given Folic Acid (Folic Acid) 1 mg PO DAILY [facility] Last Admin: 11/28/16 09:27 Dose: 1 mg Home Med (Mometasone/Formoterol [Dulera 200 Mcg/5 Mcg Inhaler]) 2 puff IH RBID [facility] Last Admin: 11/27/16 20:37 Dose: Not Given Metronidazole (Flagyl) 500 mg in 100 mls @ 100 mls/hr IVPB Q8H [facility] Last Admin: 11/28/16 08:07 Dose: 100 mls/hr Sodium Chloride (Sodium Chloride 0.9%) 1,000 mls @ 100 mls/hr IV .Q10H [facility] Last Admin: 11/28/16 03:47 Dose: Not Given Ciprofloxacin (Cipro 400mg/200ml Dsw) 400 mg in 200 mls @ 133 mls/hr IVPB Q12H [facility] Last Admin: 11/28/16 06:00 Dose: 133 mls/hr Multivitamins (Hexavitamin) 1 tab PO DAILY [facility] Last Admin: 11/28/16 09:28 Dose: 1 tab Nicotine (Nicoderm Cq) 1 patch TD DAILY [facility] Last Admin: 11/28/16 09:28 Dose: 1 patch Oxycodone/Acetaminophen (Percocet 5/325 Mg Tab) 1 tab PO Q4H PRN PRN Reason: Pain, moderate (4-7) Stop: 11/30/16 00:11 Last Admin: 11/28/16 08:06 Dose: 1 tab Pantoprazole Sodium (Protonix Ec Tab) 40 mg PO Q24H [facility] Last Admin: 11/28/16 08:06 Dose: 40 mg Saccharomyces Boulardii (Florastor) 250 mg PO BID [facility] Last Admin: 11/28/16 09:27 Dose: 250 mg Thiamine HCl (Vitamin B1 Tab) 100 mg PO DAILY [facility] Last Admin: 11/28/16 09:28 Dose: 100 mg - Labs Labs: 11/28/16 06:55 11/28/16 06:55 - Constitutional Appears: No Acute Distress - Head Exam Head Exam: ATRAUMATIC, NORMOCEPHALIC - Eye Exam Eye Exam: EOMI, PERRL - Neck Exam Neck Exam: absent: Lymphadenopathy, Thyromegaly - Respiratory Exam Respiratory Exam: NORMAL BREATHING PATTERN. absent: Rales, Rhonchi, Wheezes - Cardiovascular Exam Cardiovascular Exam: REGULAR RHYTHM, +S1, +S2. absent: Gallop, Rubs, Murmur - GI/Abdominal Exam GI & Abdominal Exam: Soft, Normal Bowel Sounds. absent: Tenderness, Mass, Organomegaly - Rectal Exam Rectal Exam: Deferred - Extremities Exam Extremities Exam: absent: Calf Tenderness, Pedal Edema Assessment and Plan (1) Salmonellosis Assessment & Plan: Patient has Salmonella recovered from stool and urine. The positive urine culture may represent a focal, extraintestinal infection or possibly contamination. Recommend repeat stool culture one month and one year after discharge. Status: Acute
== END 2016-11-28 16:17 | disposition home or self-care (01) | DRG 372 ==
LOC: C.ER 11:15 → C.6T 13:31
PROVIDERS: ADMIT Internal Medicine; ATTEND Internal Medicine
DX: A02.0 Salmonella enteritis (principal); N17.9 Acute kidney failure, unspecified; N39.0 Urinary tract infection, site not specified; A02.8 Other specified salmonella infections; E86.0 Dehydration; J02.9 Acute pharyngitis, unspecified; K13.0 Diseases of lips; I10 Essential (primary) hypertension; E87.6 Hypokalemia; J44.9 Chronic obstructive pulmonary disease, unspecified; F10.10 Alcohol abuse, uncomplicated; F17.210 Nicotine dependence, cigarettes, uncomplicated; L60.0 Ingrowing nail; Z90.49 Acquired absence of other specified parts of digestive tract; Z90.710 Acquired absence of both cervix and uterus; Z98.1 Arthrodesis status; Z98.51 Tubal ligation status; Z98.84 Bariatric surgery status

== ENCOUNTER 2016-12-21 06:29 | Inpatient (IN) | payer MEDICARE, MEDICAID ==
[2016-12-17 13:03] VITALS: BMI 24.1
[2016-12-21] MEDS ORDERED: Midazolam 2 MG/2 ML VIAL ONE (07:24)
[2016-12-21] MEDS ORDERED: Succinylcholine Chloride 20 mg/ml Syr (5 ml) IV ONE (07:25)
[2016-12-21] MEDS ORDERED: Propofol 10 mg/ml Inj (20 ML) ONE (07:25)
[2016-12-21] MEDS ORDERED: Rocuronium 10 mg/ml (5 ml) ONE (07:25)
[2016-12-21] MEDS ORDERED: ceFAZolin IV 1 gm in Dextrose 1 GM/50 ML BAG IVPB ONE (07:40)
[2016-12-21] MEDS ORDERED: Bupivacaine HCl 0.25% PF (10 ml) Inj ONE (07:41)
[2016-12-21] MEDS ORDERED: Lactated Ringer's 1,000 ML IV ONE ×3 (08:05→18:30)
[2016-12-21] MEDS ORDERED: Morphine 4 MG/ML VIAL ONE (09:06)
[2016-12-21] MEDS ORDERED: Bacitracin 50,000 UNIT in Sodium Chloride 0.9% Irrig 1,000 ML IR SCH (09:07)
[2016-12-21] MEDS ORDERED: Neostigmine Methylsulfate 3mg/3ml Syringe IV ONE (09:46)
[2016-12-21] MEDS ORDERED: HYDROmorphone 0.5 mg/0.5 ml ISec IVP PRN (10:42)
[2016-12-21] MEDS ORDERED: HYDROmorphone 0.5 mg/0.5 ml ISec ONE ×2 (10:44→15:28)
[2016-12-21] MEDS: HYDROmorphone 0.5 mg/0.5 ml ISec IVP PRN ×4 (10:45→15:28)
--- NOTE | 2016-12-21 10:54 | PCM.SURG1 ---
Surgeon's Initial Post Op Note - Surgeon's Notes Surgeon: Dr. Conte Dinkey Mechanic: Dr. Cortez PGY-3, Dr. Merida PGY-2, Radha Paz OMS-III Type of Anesthesia: General Endo Pre-Operative Diagnosis: incisional ventral hernia x2 Operative Findings: extensive adhesions. small bowel serosal tear. small bowel mucosal tear. ventral hernia x2. Patient will be continued on antibiotics. For further details please refer to operative report Post-Operative Diagnosis: same Operation Performed: ventral hernia repair with mesh placement. small bowel resection. small bowel anastomoses. Extensive lysis of adhesions Specimen/Specimens Removed: small bowel Estimated Blood Loss: EBL {In ML}: 100 Blood Products Given: N/A Drains Used: No Drains Post-Op Condition: Good Date of Surgery/Procedure: 12/21/16 Time of Surgery/Procedure: 08:00
[2016-12-21] MEDS ORDERED: Phenylephrine 10 mg/ml Inj ONE (13:05)
[2016-12-21] MEDS ORDERED: ePHEDrine 50 mg/ml Inj ONE (13:05)
[2016-12-21] MEDS: Piperacillin/Tazobact 3.375 GM in Sodium Chloride 100 ML IVPB SCH ×3 (14:00→22:24)
--- NOTE | 2016-12-21 17:44 | CP.PCM.PN ---
Subjective - Date & Time of Evaluation Date of Evaluation: 12/21/16 Time of Evaluation: 17:41 - Subjective Subjective: post operativehernia repair and mesh pt awaKE NO DISTESS HAS PAIN ASKING FOR NICOTIN PATCH AND SLEEPING MED Objective - Vital Signs/Intake and Output Vital Signs (last 24 hours): Temp Pulse Resp BP Pulse Ox 98 F 118 H 13 114/66 100 12/21/16 14:00 12/21/16 14:00 12/21/16 14:00 12/21/16 14:00 12/21/16 14:00 Intake and Output: 12/21/16 12/21/16 06:59 18:59 Output Total 300 Balance -300 - Medications Medications: Current Medications Acetaminophen (Tylenol 325mg Tab) 650 mg PO Q6 PRN PRN Reason: Fever >100.4 F Enoxaparin Sodium (Lovenox) 40 mg SC DAILY [facility] Hydromorphone/Sodium Chloride (Dilaudid Screedman/Laborer) 6 mg IV Q4H PRN; Protocol PRN Reason: Pain, severe (8-10) Piperacillin Sod/Tazobactam (Sod 3.375 gm/ Sodium Chloride) 100 mls @ 200 mls/ hr IVPB Q6H [facility] Last Admin: 12/21/16 14:00 Dose: 100 mls Lactated Ringer's (Lactated Ringer's) 1,000 mls @ 125 mls/hr IV .Q8H [facility] Ondansetron HCl (Zofran Inj) 4 mg IVP Q6H PRN PRN Reason: Nausea/Vomiting Oxycodone/Acetaminophen (Percocet 5/325 Mg Tab) 1 tab PO Q4H PRN PRN Reason: moderate pain Stop: 12/24/16 10:50 - Constitutional Appears: Non-toxic - Head Exam Head Exam: NORMAL INSPECTION - Eye Exam Eye Exam: Normal appearance Pupil Exam: NORMAL ACCOMODATION - ENT Exam ENT Exam: Mucous Membranes Moist - Neck Exam Neck Exam: Full ROM - Respiratory Exam Respiratory Exam: NORMAL BREATHING PATTERN - Cardiovascular Exam Cardiovascular Exam: REGULAR RHYTHM - GI/Abdominal Exam Additional comments: DRESSING INTACT - Neurological Exam Neurological Exam: Altered, Oriented x3 - Psychiatric Exam Psychiatric exam: Normal Affect - Skin Skin Exam: Normal Color Assessment and Plan - Assessment and Plan (Free Text) Assessment: S/P SURDERY HX SMOKING Plan: CONTINU As per orders
--- NOTE | 2016-12-21 20:09 | OP ---
PROCEDURE DATE: 12/21/2016. PREOPERATIVE DIAGNOSIS: Incisional hernia, complex. PROCEDURE CARRIED OUT: Repair of incisional hernia with Ventrio mesh. SURGEON: Dr. Conte. APPLIANCE SERVICER: Dr. Coretz and Dr. Merida, resident. ANESTHESIOLOGIST: [place]. The patient is a 61-year-old woman with history of multiple abdominal operations including previous cholecystectomies, small bowel resection with anastomosis. She now presents with increasing pain related to two incisional hernias, one in the lower part of the incision and one in the mid portion of the incision. OPERATIVE FINDINGS: Despite careful dissection and having basically finished the dissection, there was a small karin in the small bowel. Because of the patient's serosal tear, we resected this area of small bowel with the expected exposure of the peritoneal cavity to the bowel, so this was carefully irrigated, walled off, flushed. Gowns, gloves changed, etc. because this we proceeded. In addition, there was not a mesh big enough to allow us to repair this without the use of mesh nor is there biological mesh that would have been suitable for the size of the defects. After we completely freed up the small bowel, we carried out a small bowel resection with anastomosis which was adjacent to the previous area of the small bowel resection with anastomosis. We then deployed the mesh which was longer than the incision, 25 cm in length in the appropriate position and then sutured this in the midline to the fascia. The fascia was closed. The blood loss of the procedure was approximately 100 mL. There were no other intraoperative complications or problems. The operation carried out is repair of complex incisional hernia, extensive adhesions, and small bowel resection with anastomosis. Danis Conte Jr., MD cc: Quynh Tavarez.
[2016-12-22] MEDS: Lactated Ringer's 1,000 ML IV SCH ×4 (02:00→23:45)
[2016-12-22] MEDS: Piperacillin/Tazobact 3.375 GM in Sodium Chloride 100 ML IVPB SCH ×4 (04:20→23:45)
[2016-12-22 07:12] LABS: BASO # 0.1 K/uL (0.0-0.2); BASO % 0.5 % (0.0-2.0); HEMATOCRIT 27.4 % (34.0-47.0); LYMPH # 1.8 K/uL (1.0-4.3); LYMPH % 13.6 % (20.0-40.0); MEAN CELL VOLUME 90.1 fL (81.0-99.0); MEAN CORPUSCULAR HEMOGLOBIN 30.7 pg (27.0-31.0); MEAN CORPUSCULAR HGB CONC 34.1 g/dL (33.0-37.0); MONO # 0.6 K/uL (0.0-0.8); MONO % 4.7 % (0.0-10.0); RED CELL DISTRIBUTION WIDTH 13.4 % (11.5-14.5); WHITE BLOOD COUNT 13.1 K/uL (4.8-10.8)
[2016-12-22 07:42] LABS: CHLORIDE 104 mmol/L (98-107); POTASSIUM 3.7 mmol/L (3.6-5.2); SODIUM 136 mmol/L (132-148)
[2016-12-22 07:44] LABS: BILIRUBIN,TOTAL 0.9 mg/dL (0.2-1.3); GFR AFRICAN-AMERICAN > 60
[2016-12-22 07:45] LABS: ALB/GLOB RATIO 0.8 (1.0-2.1); ALKALINE PHOSPHATASE 70 U/L (38-126); ALT/SGPT 24 U/L (9-52); AST/SGOT 20 U/L (14-36); BLOOD UREA NITROGEN 11 mg/dL (7-17); CALCIUM 7.5 mg/dl (8.6-10.4); CARBON DIOXIDE 26 mmol/L (22-30); GLUCOSE,RANDOM 87 mg/dL (65-105); TOTAL PROTEIN 5.3 g/dL (6.3-8.3)
[2016-12-22] MEDS: Enoxaparin 40 mg Syringe SC SCH (10:31)
--- NOTE | 2016-12-22 11:26 | CP.PCM.PN ---
Subjective - Date & Time of Evaluation Date of Evaluation: 12/22/16 Time of Evaluation: 11:24 - Subjective Subjective: pt still in pain canot pass gas or get oob Objective - Vital Signs/Intake and Output Vital Signs (last 24 hours): Temp Pulse Resp BP Pulse Ox 98.9 F 71 20 110/65 100 12/22/16 07:59 12/22/16 07:59 12/22/16 07:59 12/22/16 07:59 12/22/16 07:59 Intake and Output: 12/22/16 12/22/16 06:59 18:59 Intake Total 1085 Output Total 400 Balance 685 - Medications Medications: Current Medications Acetaminophen (Tylenol 325mg Tab) 650 mg PO Q6 PRN PRN Reason: Fever >100.4 F Enoxaparin Sodium (Lovenox) 40 mg SC DAILY [facility] Last Admin: 12/22/16 10:31 Dose: 40 mg Hydromorphone/Sodium Chloride (Dilaudid Swatch Checker) 6 mg IV Q4H PRN; Protocol PRN Reason: Pain, severe (8-10) Last Admin: 12/21/16 18:00 Dose: 0.2 mg Piperacillin Sod/Tazobactam (Sod 3.375 gm/ Sodium Chloride) 100 mls @ 200 mls/ hr IVPB Q6H [facility] Last Admin: 12/22/16 10:32 Dose: 200 mls/hr Lactated Ringer's (Lactated Ringer's) 1,000 mls @ 125 mls/hr IV .Q8H [facility] Last Admin: 12/22/16 02:00 Dose: 125 mls/hr Nicotine (Nicoderm Cq) 1 patch TD DAILY [facility] Last Admin: 12/22/16 10:36 Dose: 1 patch Ondansetron HCl (Zofran Inj) 4 mg IVP Q6H PRN PRN Reason: Nausea/Vomiting Oxycodone/Acetaminophen (Percocet 5/325 Mg Tab) 1 tab PO Q4H PRN PRN Reason: moderate pain Stop: 12/24/16 10:50 Pneumococcal Polyvalent Vaccine (Pneumovax 23 Vaccine) 0.5 ml IM .ONCE ONE Stop: 12/24/16 07:09 Zolpidem Tartrate (Ambien) 5 mg PO HS PRN PRN Reason: Insomnia Last Admin: 12/21/16 22:33 Dose: 5 mg - Labs Labs: 12/22/16 07:01 12/22/16 07:01 - Constitutional Appears: Non-toxic - Head Exam Head Exam: NORMAL INSPECTION - Eye Exam Eye Exam: Normal appearance Pupil Exam: NORMAL ACCOMODATION - ENT Exam ENT Exam: Mucous Membranes Moist - Neck Exam Neck Exam: Full ROM - Respiratory Exam Respiratory Exam: Clear to Ausculation Bilateral - Cardiovascular Exam Cardiovascular Exam: REGULAR RHYTHM - GI/Abdominal Exam GI & Abdominal Exam: Tenderness, Hypoactive Bowel Sounds - Back Exam Back Exam: NORMAL INSPECTION - Neurological Exam Neurological Exam: Normal Gait - Psychiatric Exam Psychiatric exam: Normal Mood - Skin Skin Exam: Pallor Assessment and Plan - Assessment and Plan (Free Text) Assessment: post operative abd hernia repaire pain managemet htn contoled aneamia Plan: cont as per orders
[2016-12-22] MEDS: Oxycodone/Acetaminophen 5/325 mg Tab PO PRN (14:48)
--- NOTE | 2016-12-22 15:38 | CP.PCM.PN ---
Subjective - Date & Time of Evaluation Date of Evaluation: 12/22/16 Time of Evaluation: 06:45 - Subjective Subjective: Patient seen and examined this morning. Reports abdominal pain along surgical incision wound. Reports pain medication alleviates pain. Patient is refusing to get out of bed and ambulate. The importance of this was explained to the patient in detailed will continue to encourage her to get out of bed and use incentive spirometer. Objective - Vital Signs/Intake and Output Vital Signs (last 24 hours): Temp Pulse Resp BP Pulse Ox 98.9 F 71 20 110/65 100 12/22/16 07:59 12/22/16 07:59 12/22/16 07:59 12/22/16 07:59 12/22/16 07:59 Intake and Output: 12/22/16 12/22/16 06:59 18:59 Intake Total 1085 1575 Output Total 400 1200 Balance 685 375 - Medications Medications: Current Medications Acetaminophen (Tylenol 325mg Tab) 650 mg PO Q6 PRN PRN Reason: Fever >100.4 F Enoxaparin Sodium (Lovenox) 40 mg SC DAILY [facility] Last Admin: 12/22/16 10:31 Dose: 40 mg Hydromorphone/Sodium Chloride (Dilaudid [employer]) 6 mg IV Q4H PRN; Protocol PRN Reason: Pain, severe (8-10) Last Admin: 12/21/16 18:00 Dose: 0.2 mg Piperacillin Sod/Tazobactam (Sod 3.375 gm/ Sodium Chloride) 100 mls @ 200 mls/ hr IVPB Q6H [facility] Last Admin: 12/22/16 10:32 Dose: 200 mls/hr Lactated Ringer's (Lactated Ringer's) 1,000 mls @ 125 mls/hr IV .Q8H [facility] Last Admin: 12/22/16 13:18 Dose: Not Given Nicotine (Nicoderm Cq) 1 patch TD DAILY [facility] Last Admin: 12/22/16 10:36 Dose: 1 patch Ondansetron HCl (Zofran Inj) 4 mg IVP Q6H PRN PRN Reason: Nausea/Vomiting Oxycodone/Acetaminophen (Percocet 5/325 Mg Tab) 1 tab PO Q4H PRN PRN Reason: moderate pain Stop: 12/24/16 10:50 Last Admin: 12/22/16 14:48 Dose: 1 tab Pneumococcal Polyvalent Vaccine (Pneumovax 23 Vaccine) 0.5 ml IM .ONCE ONE Stop: 12/24/16 07:09 Zolpidem Tartrate (Ambien) 5 mg PO HS PRN PRN Reason: Insomnia Last Admin: 12/21/16 22:33 Dose: 5 mg - Labs Labs: 12/22/16 07:01 12/22/16 07:01 - Constitutional Appears: No Acute Distress - Eye Exam Eye Exam: Normal appearance - ENT Exam ENT Exam: Mucous Membranes Moist - Respiratory Exam Respiratory Exam: NORMAL BREATHING PATTERN - Cardiovascular Exam Cardiovascular Exam: +S1, +S2 - GI/Abdominal Exam GI & Abdominal Exam: Soft - Neurological Exam Neurological Exam: Alert, Awake, Oriented x3 - Psychiatric Exam Psychiatric exam: Normal Mood - Skin Skin Exam: Dry, Warm Assessment and Plan - Assessment and Plan (Free Text) Assessment: 61F s/p incisional hernia repair POD1 -Adv diet as tolerated -Monitor bowel function -Encourage patient out of bed to chair, ambulate -Encourage incentive spirometer use -C/w abx -Analgesics/anti-emetics -Tylenol prn fever>100.4 -GI/DVT ppx -Further recs per Dr. Dg eMrida PGY-2
[2016-12-23] MEDS: Piperacillin/Tazobact 3.375 GM in Sodium Chloride 100 ML IVPB SCH ×4 (04:52→22:18)
[2016-12-23 08:09] LABS: BASO % 0.2 % (0.0-2.0); EOS # 0.1 K/uL (0.0-0.7); EOS % 1.1 % (0.0-4.0); HEMATOCRIT 25.5 % (34.0-47.0); LYMPH # 1.3 K/uL (1.0-4.3); LYMPH % 9.6 % (20.0-40.0); MEAN CELL VOLUME 90.4 fL (81.0-99.0); MEAN CORPUSCULAR HEMOGLOBIN 30.7 pg (27.0-31.0); MEAN CORPUSCULAR HGB CONC 33.9 g/dL (33.0-37.0); MEAN PLATELET VOLUME 7.9 fL (7.2-11.7); MONO # 0.6 K/uL (0.0-0.8); MONO % 4.3 % (0.0-10.0); NRBC % 0.1 % (0.0-2.0); PLATELET COUNT 188 K/uL (130-400); RED CELL DISTRIBUTION WIDTH 13.8 % (11.5-14.5); WHITE BLOOD COUNT 13.2 K/uL (4.8-10.8)
[2016-12-23 08:16] LABS: CHLORIDE 100 mmol/L (98-107); POTASSIUM 3.4 mmol/L (3.6-5.2); SODIUM 133 mmol/L (132-148)
[2016-12-23 08:19] LABS: ALB/GLOB RATIO 0.7 (1.0-2.1); ALKALINE PHOSPHATASE 72 U/L (38-126); ALT/SGPT 24 U/L (9-52); AST/SGOT 19 U/L (14-36); BILIRUBIN,TOTAL 0.8 mg/dL (0.2-1.3); BLOOD UREA NITROGEN 7 mg/dL (7-17); CALCIUM 7.3 mg/dl (8.6-10.4); CARBON DIOXIDE 28 mmol/L (22-30); GFR AFRICAN-AMERICAN > 60; GLUCOSE,RANDOM 82 mg/dL (65-105); TOTAL PROTEIN 5.1 g/dL (6.3-8.3)
--- NOTE | 2016-12-23 08:26 | CP.PCM.PN ---
Subjective - Date & Time of Evaluation Date of Evaluation: 12/23/16 Time of Evaluation: 08:25 - Subjective Subjective: hct 25 otherwise stable no bleeding Objective - Vital Signs/Intake and Output Vital Signs (last 24 hours): Temp Pulse Resp BP Pulse Ox 98.7 F 112 H 20 128/83 96 12/23/16 04:53 12/23/16 04:53 12/23/16 04:53 12/23/16 04:53 12/23/16 04:53 Intake and Output: 12/23/16 12/23/16 06:59 18:59 Intake Total 2695 Balance 2695 - Medications Medications: Current Medications Acetaminophen (Tylenol 325mg Tab) 650 mg PO Q6 PRN PRN Reason: Fever >100.4 F Last Admin: 12/22/16 15:40 Dose: 650 mg Enoxaparin Sodium (Lovenox) 40 mg SC DAILY [facility] Last Admin: 12/22/16 10:31 Dose: 40 mg Hydromorphone/Sodium Chloride (Dilaudid Chief Petroleum Engineer) 6 mg IV Q4H PRN; Protocol PRN Reason: Pain, severe (8-10) Last Admin: 12/22/16 20:03 Dose: 6 mg Piperacillin Sod/Tazobactam (Sod 3.375 gm/ Sodium Chloride) 100 mls @ 200 mls/ hr IVPB Q6H [facility] Last Admin: 12/23/16 04:52 Dose: 200 mls/hr Lactated Ringer's (Lactated Ringer's) 1,000 mls @ 125 mls/hr IV .Q8H [facility] Last Admin: 12/22/16 23:45 Dose: 125 mls/hr Nicotine (Nicoderm Cq) 1 patch TD DAILY [facility] Last Admin: 12/22/16 10:36 Dose: 1 patch Ondansetron HCl (Zofran Inj) 4 mg IVP Q6H PRN PRN Reason: Nausea/Vomiting Oxycodone/Acetaminophen (Percocet 5/325 Mg Tab) 1 tab PO Q4H PRN PRN Reason: moderate pain Stop: 12/24/16 10:50 Last Admin: 12/22/16 14:48 Dose: 1 tab Pneumococcal Polyvalent Vaccine (Pneumovax 23 Vaccine) 0.5 ml IM .ONCE ONE Stop: 12/24/16 07:09 Zolpidem Tartrate (Ambien) 5 mg PO HS PRN PRN Reason: Insomnia Last Admin: 12/21/16 22:33 Dose: 5 mg - Labs Labs: 12/23/16 07:58 12/23/16 07:58
[2016-12-23 09:54] LABS: EOSINOPHIL 1 % (0-4); NEUTROPHIL 85 % (50-75); TOTAL CELLS COUNTED 100
[2016-12-23] MEDS: Enoxaparin 40 mg Syringe SC SCH (09:54)
--- NOTE | 2016-12-23 11:07 | CP.PCM.PN ---
Subjective - Date & Time of Evaluation Date of Evaluation: 12/23/16 Time of Evaluation: 07:00 - Subjective Subjective: Patient seen and examined this morning. Reports tolerating liquid diet. Passing flatus. In better spirits this morning. Abdominal dressings c/d/i. Objective - Vital Signs/Intake and Output Vital Signs (last 24 hours): Temp Pulse Resp BP Pulse Ox 98.7 F 109 H 18 116/76 100 12/23/16 07:15 12/23/16 07:15 12/23/16 07:15 12/23/16 07:15 12/23/16 07:15 Intake and Output: 12/23/16 12/23/16 06:59 18:59 Intake Total 2695 Balance 2695 - Medications Medications: Current Medications Acetaminophen (Tylenol 325mg Tab) 650 mg PO Q6 PRN PRN Reason: Fever >100.4 F Last Admin: 12/22/16 15:40 Dose: 650 mg Enoxaparin Sodium (Lovenox) 40 mg SC DAILY [facility] Last Admin: 12/23/16 09:54 Dose: 40 mg Hydromorphone/Sodium Chloride (Dilaudid Information Officer) 6 mg IV Q4H PRN; Protocol PRN Reason: Pain, severe (8-10) Last Admin: 12/22/16 20:03 Dose: 6 mg Piperacillin Sod/Tazobactam (Sod 3.375 gm/ Sodium Chloride) 100 mls @ 200 mls/ hr IVPB Q6H [facility] Last Admin: 12/23/16 09:59 Dose: 200 mls/hr Lactated Ringer's (Lactated Ringer's) 1,000 mls @ 125 mls/hr IV .Q8H [facility] Last Admin: 12/22/16 23:45 Dose: 125 mls/hr Nicotine (Nicoderm Cq) 1 patch TD DAILY [facility] Last Admin: 12/23/16 10:01 Dose: 1 patch Ondansetron HCl (Zofran Inj) 4 mg IVP Q6H PRN PRN Reason: Nausea/Vomiting Oxycodone/Acetaminophen (Percocet 5/325 Mg Tab) 1 tab PO Q4H PRN PRN Reason: moderate pain Stop: 12/24/16 10:50 Last Admin: 12/22/16 14:48 Dose: 1 tab Pneumococcal Polyvalent Vaccine (Pneumovax 23 Vaccine) 0.5 ml IM .ONCE ONE Stop: 12/24/16 07:09 Zolpidem Tartrate (Ambien) 5 mg PO HS PRN PRN Reason: Insomnia Last Admin: 12/21/16 22:33 Dose: 5 mg - Labs Labs: 12/23/16 07:58 12/23/16 07:58 - Constitutional Appears: No Acute Distress - Head Exam Head Exam: NORMOCEPHALIC - Eye Exam Eye Exam: Normal appearance - ENT Exam ENT Exam: Mucous Membranes Moist - Respiratory Exam Respiratory Exam: NORMAL BREATHING PATTERN - Cardiovascular Exam Cardiovascular Exam: +S1, +S2 - GI/Abdominal Exam GI & Abdominal Exam: Soft, Tenderness. absent: Firm, Guarding, Rigid - Neurological Exam Neurological Exam: Alert, Awake, Oriented x3 - Psychiatric Exam Psychiatric exam: Normal Mood - Skin Skin Exam: Normal Color, Warm Assessment and Plan - Assessment and Plan (Free Text) Assessment: 61F s/p incisional hernia repair POD2 -Adv diet as tolerated -Monitor bowel function -Encourage patient out of bed to chair, ambulate -Encourage incentive spirometer use -C/w abx -Analgesics/anti-emetics -Tylenol prn fever>100.4 -GI/DVT ppx -Further recs per Dr. Dg Merida PGY-2
[2016-12-23] MEDS: Lactated Ringer's 1,000 ML IV SCH ×2 (11:17→22:17)
[2016-12-23] MEDS: Potassium Chloride 20 mEq ER Tab PO SCH (11:18)
[2016-12-23] MEDS: Oxycodone/Acetaminophen 5/325 mg Tab PO PRN (14:46)
--- NOTE | 2016-12-23 17:02 | CP.PCM.PN ---
Subjective - Date & Time of Evaluation Date of Evaluation: 12/23/16 Time of Evaluation: 17:00 - Subjective Subjective: still in pain had fever was oob today slight gas passed slight cough Objective - Vital Signs/Intake and Output Vital Signs (last 24 hours): Temp Pulse Resp BP Pulse Ox 101.8 F H 126 H 20 138/83 100 12/23/16 16:39 12/23/16 16:31 12/23/16 16:31 12/23/16 16:31 12/23/16 16:31 Intake and Output: 12/23/16 12/23/16 06:59 18:59 Intake Total 4435 Balance 4435 - Medications Medications: Current Medications Acetaminophen (Tylenol 325mg Tab) 650 mg PO Q6 PRN PRN Reason: Fever >100.4 F Last Admin: 12/23/16 16:39 Dose: 650 mg Enoxaparin Sodium (Lovenox) 40 mg SC DAILY [facility] Last Admin: 12/23/16 09:54 Dose: 40 mg Hydromorphone/Sodium Chloride (Dilaudid Substance Abuse Clinician) 6 mg IV Q4H PRN; Protocol PRN Reason: Pain, severe (8-10) Last Admin: 12/22/16 20:03 Dose: 6 mg Piperacillin Sod/Tazobactam (Sod 3.375 gm/ Sodium Chloride) 100 mls @ 200 mls/ hr IVPB Q6H [facility] Last Admin: 12/23/16 09:59 Dose: 200 mls/hr Lactated Ringer's (Lactated Ringer's) 1,000 mls @ 75 mls/hr IV .[id number] [facility] Last Admin: 12/23/16 11:17 Dose: 75 mls/hr Ketorolac Tromethamine (Toradol) 10 mg PO Q8 [facility] Nicotine (Nicoderm Cq) 1 patch TD DAILY [facility] Last Admin: 12/23/16 10:01 Dose: 1 patch Ondansetron HCl (Zofran Inj) 4 mg IVP Q6H PRN PRN Reason: Nausea/Vomiting Oxycodone/Acetaminophen (Percocet 5/325 Mg Tab) 1 tab PO Q4H PRN PRN Reason: moderate pain Stop: 12/24/16 10:50 Last Admin: 12/23/16 14:46 Dose: 1 tab Pneumococcal Polyvalent Vaccine (Pneumovax 23 Vaccine) 0.5 ml IM .ONCE ONE Stop: 12/24/16 07:09 Potassium Chloride (K-Dur 20 Meq Er Tab) 40 meq PO DAILY [facility] Last Admin: 12/23/16 11:18 Dose: 40 meq Zolpidem Tartrate (Ambien) 5 mg PO HS PRN PRN Reason: Insomnia Last Admin: 12/21/16 22:33 Dose: 5 mg - Labs Labs: 12/23/16 07:58 12/23/16 07:58 - Constitutional Appears: In Acute Distress - Head Exam Head Exam: NORMAL INSPECTION - Eye Exam Eye Exam: Normal appearance Pupil Exam: NORMAL ACCOMODATION - ENT Exam ENT Exam: Mucous Membranes Moist - Neck Exam Neck Exam: Full ROM - Respiratory Exam Respiratory Exam: NORMAL BREATHING PATTERN - Cardiovascular Exam Cardiovascular Exam: REGULAR RHYTHM - GI/Abdominal Exam GI & Abdominal Exam: Tenderness, Hypoactive Bowel Sounds - Extremities Exam Extremities Exam: Normal Inspection - Back Exam Back Exam: NORMAL INSPECTION - Neurological Exam Neurological Exam: Oriented x3 - Psychiatric Exam Psychiatric exam: Normal Affect - Skin Skin Exam: Normal Color, Pallor Assessment and Plan - Assessment and Plan (Free Text) Assessment: fever aneamia s/p surgery Plan: cont as per orders
--- NOTE | 2016-12-23 18:30 | RAD ---
HISTORY: COMPARISON: 11/23/2016 TECHNIQUE: Chest PA and lateral FINDINGS: LINES AND TUBES: None. LUNG AND PLEURA: There are low lung volumes. There is ill-defined airspace disease in the right lower lobe. There is a small right pleural effusion. The left lung is clear. HEART AND MEDIASTINUM: The heart is not enlarged. The hilar and mediastinal contours are within normal limits. SKELETAL STRUCTURES: The bony structures are within normal limits for the patient's age. VISUALIZED UPPER ABDOMEN: Normal. OTHER FINDINGS: None. IMPRESSION: Suspect right lower lobe pneumonia and small right pleural effusion. Follow-up after medical management is recommended to ensure complete resolution.
[2016-12-23] MEDS: Calcium-Vit D 250 mg-125 Units Tab UD PO SCH (22:16)
[2016-12-24] MEDS: Lactated Ringer's 1,000 ML IV SCH ×2 (00:30→14:02)
[2016-12-24] MEDS: Piperacillin/Tazobact 3.375 GM in Sodium Chloride 100 ML IVPB SCH ×4 (05:35→22:36)
[2016-12-24] MEDS ORDERED: Pneumococcal 23-Valent Vaccine IM ONE (07:08)
[2016-12-24 07:35] LABS: CHLORIDE 100 mmol/L (98-107); POTASSIUM 3.3 mmol/L (3.6-5.2); SODIUM 133 mmol/L (132-148)
[2016-12-24 07:37] LABS: AST/SGOT 17 U/L (14-36); BILIRUBIN,TOTAL 0.8 mg/dL (0.2-1.3); CARBON DIOXIDE 28 mmol/L (22-30); GFR AFRICAN-AMERICAN > 60
[2016-12-24 07:38] LABS: ALB/GLOB RATIO 0.7 (1.0-2.1); ALKALINE PHOSPHATASE 77 U/L (38-126); ALT/SGPT 25 U/L (9-52); BLOOD UREA NITROGEN 6 mg/dL (7-17); CALCIUM 7.7 mg/dl (8.6-10.4); GLUCOSE,RANDOM 80 mg/dL (65-105); TOTAL PROTEIN 5.2 g/dL (6.3-8.3)
[2016-12-24 07:39] LABS: BASO % 0.2 % (0.0-2.0); EOS # 0.1 K/uL (0.0-0.7); EOS % 1.1 % (0.0-4.0); HEMATOCRIT 25.4 % (34.0-47.0); LYMPH # 0.9 K/uL (1.0-4.3); LYMPH % 7.1 % (20.0-40.0); MEAN CELL VOLUME 90.5 fL (81.0-99.0); MEAN CORPUSCULAR HEMOGLOBIN 30.7 pg (27.0-31.0); MEAN PLATELET VOLUME 8.1 fL (7.2-11.7); MONO # 0.8 K/uL (0.0-0.8); MONO % 6.2 % (0.0-10.0); PLATELET COUNT 195 K/uL (130-400); RED CELL DISTRIBUTION WIDTH 13.2 % (11.5-14.5); WHITE BLOOD COUNT 12.6 K/uL (4.8-10.8)
[2016-12-24 09:40] LABS: EOSINOPHIL 1 % (0-4); NEUTROPHIL 87 % (50-75); TOTAL CELLS COUNTED 100
[2016-12-24] MEDS: Potassium Chloride 20 mEq ER Tab PO SCH (10:57)
[2016-12-24] MEDS: Oxycodone/Acetaminophen 5/325 mg Tab PO PRN ×2 (10:58→20:38)
[2016-12-24] MEDS: Enoxaparin 40 mg Syringe SC SCH (11:01)
[2016-12-24] MEDS: Calcium-Vit D 250 mg-125 Units Tab UD PO SCH (11:02)
--- NOTE | 2016-12-24 15:35 | CP.PCM.PN ---
Subjective - Date & Time of Evaluation Date of Evaluation: 12/24/16 Time of Evaluation: 11:00 - Subjective Subjective: Pt seen and examined this morning. Reports she has gotten out of bed once. However patient still refusing to ambulate. Tmax: 100.8. Tolerating diet. Reports passing flatus denies BM. Abdominal dressing c/d/i. Objective - Vital Signs/Intake and Output Vital Signs (last 24 hours): Temp Pulse Resp BP Pulse Ox 98.8 F 94 H 20 138/90 98 12/24/16 15:30 12/24/16 15:30 12/24/16 15:30 12/24/16 15:30 12/24/16 15:30 Intake and Output: 12/24/16 12/24/16 06:59 18:59 Intake Total 1550 Balance 1550 - Medications Medications: Current Medications Acetaminophen (Tylenol 325mg Tab) 650 mg PO Q6 PRN PRN Reason: Fever >100.4 F Last Admin: 12/24/16 00:05 Dose: 650 mg Calcium/Vitamin D (Oscal-D 250 Mg-125 Units Tab) 1 tab PO DAILY [facility] Last Admin: 12/24/16 11:02 Dose: 1 tab Enoxaparin Sodium (Lovenox) 40 mg SC DAILY [facility] Last Admin: 12/24/16 11:01 Dose: 40 mg Piperacillin Sod/Tazobactam (Sod 3.375 gm/ Sodium Chloride) 100 mls @ 200 mls/ hr IVPB Q6H [facility] Last Admin: 12/24/16 11:00 Dose: 200 mls/hr Lactated Ringer's (Lactated Ringer's) 1,000 mls @ 75 mls/hr IV .[id number] [facility] Last Admin: 12/24/16 14:02 Dose: 75 mls/hr Ketorolac Tromethamine (Toradol) 15 mg IVP Q6 [facility] Stop: 12/28/16 18:01 Last Admin: 12/24/16 12:04 Dose: 15 mg Nicotine (Nicoderm Cq) 1 patch TD DAILY [facility] Last Admin: 12/24/16 11:02 Dose: 1 patch Ondansetron HCl (Zofran Inj) 4 mg IVP Q6H PRN PRN Reason: Nausea/Vomiting Potassium Chloride (K-Dur 20 Meq Er Tab) 40 meq PO DAILY [facility] Last Admin: 12/24/16 10:57 Dose: 40 meq Zolpidem Tartrate (Ambien) 5 mg PO HS PRN PRN Reason: Insomnia Last Admin: 12/21/16 22:33 Dose: 5 mg - Labs Labs: 12/24/16 07:16 12/24/16 07:16 APTT 29 SECONDS (21-34) 12/24/16 07:16
--- NOTE | 2016-12-24 18:14 | CP.PCM.PN ---
Subjective - Date & Time of Evaluation Date of Evaluation: 12/24/16 Time of Evaluation: 18:12 - Subjective Subjective: pt still in bed has pain no bowel movements passing gas Objective - Vital Signs/Intake and Output Vital Signs (last 24 hours): Temp Pulse Resp BP Pulse Ox 98.8 F 94 H 20 138/90 98 12/24/16 15:30 12/24/16 15:30 12/24/16 15:30 12/24/16 15:30 12/24/16 15:30 Intake and Output: 12/24/16 12/24/16 06:59 18:59 Intake Total 1550 Balance 1550 - Medications Medications: Current Medications Acetaminophen (Tylenol 325mg Tab) 650 mg PO Q6 PRN PRN Reason: Fever >100.4 F Last Admin: 12/24/16 00:05 Dose: 650 mg Calcium/Vitamin D (Oscal-D 250 Mg-125 Units Tab) 1 tab PO DAILY [facility] Last Admin: 12/24/16 11:02 Dose: 1 tab Enoxaparin Sodium (Lovenox) 40 mg SC DAILY [facility] Last Admin: 12/24/16 11:01 Dose: 40 mg Piperacillin Sod/Tazobactam (Sod 3.375 gm/ Sodium Chloride) 100 mls @ 200 mls/ hr IVPB Q6H [facility] Last Admin: 12/24/16 16:44 Dose: 200 mls/hr Lactated Ringer's (Lactated Ringer's) 1,000 mls @ 75 mls/hr IV .[id number] [facility] Last Admin: 12/24/16 14:02 Dose: 75 mls/hr Ketorolac Tromethamine (Toradol) 15 mg IVP Q6 [facility] Stop: 12/28/16 18:01 Last Admin: 12/24/16 17:47 Dose: 15 mg Nicotine (Nicoderm Cq) 1 patch TD DAILY [facility] Last Admin: 12/24/16 11:02 Dose: 1 patch Ondansetron HCl (Zofran Inj) 4 mg IVP Q6H PRN PRN Reason: Nausea/Vomiting Oxycodone/Acetaminophen (Percocet 5/325 Mg Tab) 1 tab PO Q4H PRN PRN Reason: Pain, moderate (4-7) Stop: 12/27/16 17:39 Potassium Chloride (K-Dur 20 Meq Er Tab) 40 meq PO DAILY [facility] Last Admin: 12/24/16 10:57 Dose: 40 meq Zolpidem Tartrate (Ambien) 5 mg PO HS PRN PRN Reason: Insomnia Last Admin: 12/21/16 22:33 Dose: 5 mg - Labs Labs: 12/24/16 07:16 12/24/16 07:16 APTT 29 SECONDS (21-34) 12/24/16 07:16 - Constitutional Appears: Non-toxic - Head Exam Head Exam: NORMAL INSPECTION - ENT Exam ENT Exam: Mucous Membranes Moist - Neck Exam Neck Exam: Normal Inspection - Respiratory Exam Respiratory Exam: NORMAL BREATHING PATTERN - Cardiovascular Exam Cardiovascular Exam: REGULAR RHYTHM - GI/Abdominal Exam GI & Abdominal Exam: Tenderness, Diminished Bowel Sounds - Extremities Exam Extremities Exam: Normal Inspection - Back Exam Back Exam: NORMAL INSPECTION - Neurological Exam Neurological Exam: Alert, Oriented x3 - Psychiatric Exam Psychiatric exam: Normal Affect Assessment and Plan - Assessment and Plan (Free Text) Assessment: s/p surgery abd hernia repaire htn hypokaleamia hypocalceamia aneamia lecocytosis Plan: cont currnt rx
[2016-12-24] MEDS ORDERED: Aluminum Hydroxide/Magnesium Hydroxide Susp (30 mL) PO ONE (22:10)
[2016-12-25] MEDS: Lactated Ringer's 1,000 ML IV SCH ×3 (03:00→16:30)
[2016-12-25] MEDS: Piperacillin/Tazobact 3.375 GM in Sodium Chloride 100 ML IVPB SCH ×5 (05:35→23:23)
[2016-12-25 07:49] LABS: BASO % 0.2 % (0.0-2.0); EOS # 0.1 K/uL (0.0-0.7); EOS % 1.1 % (0.0-4.0); LYMPH # 1.4 K/uL (1.0-4.3); LYMPH % 10.9 % (20.0-40.0); MEAN CELL VOLUME 90.7 fL (81.0-99.0); MEAN CORPUSCULAR HEMOGLOBIN 29.6 pg (27.0-31.0); MEAN CORPUSCULAR HGB CONC 32.7 g/dL (33.0-37.0); MEAN PLATELET VOLUME 8.1 fL (7.2-11.7); MONO # 0.9 K/uL (0.0-0.8); MONO % 7.1 % (0.0-10.0); RED CELL DISTRIBUTION WIDTH 13.3 % (11.5-14.5); WHITE BLOOD COUNT 13.1 K/uL (4.8-10.8)
[2016-12-25] MEDS: Oxycodone/Acetaminophen 5/325 mg Tab PO PRN ×3 (09:09→23:22)
[2016-12-25] MEDS: Calcium-Vit D 250 mg-125 Units Tab UD PO SCH (09:27)
[2016-12-25] MEDS: Potassium Chloride 20 mEq ER Tab PO SCH (09:28)
--- NOTE | 2016-12-25 12:33 | CP.PCM.PN ---
Subjective - Date & Time of Evaluation Date of Evaluation: 12/25/16 Time of Evaluation: 12:30 - Subjective Subjective: pt still in bed pain no fever no cough hgb droped to6.5 transfusion started Objective - Vital Signs/Intake and Output Vital Signs (last 24 hours): Temp Pulse Resp BP Pulse Ox 98.7 F 111 H 18 130/88 97 12/25/16 12:02 12/25/16 12:02 12/25/16 12:02 12/25/16 12:02 12/25/16 07:00 Intake and Output: 12/25/16 12/25/16 06:59 18:59 Intake Total 825 1130 Balance 825 1130 - Medications Medications: Current Medications Acetaminophen (Tylenol 325mg Tab) 650 mg PO Q6 PRN PRN Reason: Fever >100.4 F Last Admin: 12/24/16 00:05 Dose: 650 mg Calcium/Vitamin D (Oscal-D 250 Mg-125 Units Tab) 1 tab PO DAILY [facility] Last Admin: 12/25/16 09:27 Dose: 1 tab Enoxaparin Sodium (Lovenox) 40 mg SC DAILY [facility] Last Admin: 12/24/16 11:01 Dose: 40 mg Furosemide (Lasix) 20 mg IVP DAILY [facility] Piperacillin Sod/Tazobactam (Sod 3.375 gm/ Sodium Chloride) 100 mls @ 200 mls/ hr IVPB Q6H [facility] Last Admin: 12/25/16 09:30 Dose: 200 mls/hr Lactated Ringer's (Lactated Ringer's) 1,000 mls @ 75 mls/hr IV .[id number] [facility] Last Admin: 12/25/16 05:36 Dose: 75 mls/hr Ketorolac Tromethamine (Toradol) 15 mg IVP Q6 [facility] Stop: 12/28/16 18:01 Last Admin: 12/25/16 05:36 Dose: 15 mg Nicotine (Nicoderm Cq) 1 patch TD DAILY [facility] Last Admin: 12/25/16 09:28 Dose: 1 patch Ondansetron HCl (Zofran Inj) 4 mg IVP Q6H PRN PRN Reason: Nausea/Vomiting Oxycodone/Acetaminophen (Percocet 5/325 Mg Tab) 1 tab PO Q4H PRN PRN Reason: Pain, moderate (4-7) Stop: 12/27/16 17:39 Last Admin: 12/25/16 09:09 Dose: 1 tab Potassium Chloride (K-Dur 20 Meq Er Tab) 40 meq PO DAILY [facility] Last Admin: 12/25/16 09:28 Dose: 40 meq Zolpidem Tartrate (Ambien) 5 mg PO HS PRN PRN Reason: Insomnia Last Admin: 12/21/16 22:33 Dose: 5 mg - Labs Labs: 12/25/16 07:43 12/24/16 07:16 APTT 29 SECONDS (21-34) 12/24/16 07:16 - Constitutional Appears: Non-toxic - Head Exam Head Exam: NORMAL INSPECTION - Eye Exam Eye Exam: Normal appearance Pupil Exam: NORMAL ACCOMODATION - ENT Exam ENT Exam: Normal Oropharynx - Neck Exam Neck Exam: Normal Inspection - Respiratory Exam Respiratory Exam: NORMAL BREATHING PATTERN - Cardiovascular Exam Cardiovascular Exam: REGULAR RHYTHM - GI/Abdominal Exam GI & Abdominal Exam: Tenderness, Hypoactive Bowel Sounds - Extremities Exam Extremities Exam: Normal Inspection - Neurological Exam Neurological Exam: Alert, Oriented x3 - Psychiatric Exam Psychiatric exam: Normal Affect - Skin Skin Exam: Pallor Assessment and Plan - Assessment and Plan (Free Text) Assessment: aneamia worse abd pain s/p surgery s/p litle efusion Plan: as per orders
[2016-12-25 13:09] LABS: CHLORIDE 101 mmol/L (98-107); SODIUM 137 mmol/L (132-148)
[2016-12-25 13:10] LABS: POTASSIUM 3.7 mmol/L (3.6-5.2)
[2016-12-25 13:12] LABS: CARBON DIOXIDE 25 mmol/L (22-30); GFR AFRICAN-AMERICAN > 60
[2016-12-25 13:13] LABS: BLOOD UREA NITROGEN 17 mg/dL (7-17); CALCIUM 7.1 mg/dl (8.6-10.4); GLUCOSE,RANDOM 66 mg/dL (65-105)
--- NOTE | 2016-12-25 16:19 | CP.PCM.PN ---
Subjective - Date & Time of Evaluation Date of Evaluation: 12/25/16 Time of Evaluation: 07:15 - Subjective Subjective: Patient seen and examined this morning. As per nursing patient had 4-5 dark bloody bowel movements over night. Patient is passing flatus, +BM. Tolerating diet. Complaining of nausea and diarrhea. Objective - Vital Signs/Intake and Output Vital Signs (last 24 hours): Temp Pulse Resp BP Pulse Ox 98.7 F 110 H 18 147/90 97 12/25/16 15:00 12/25/16 15:00 12/25/16 15:00 12/25/16 15:00 12/25/16 07:00 Intake and Output: 12/25/16 12/25/16 06:59 18:59 Intake Total 825 2195 Balance 825 2195 - Medications Medications: Current Medications Acetaminophen (Tylenol 325mg Tab) 650 mg PO Q6 PRN PRN Reason: Fever >100.4 F Last Admin: 12/24/16 00:05 Dose: 650 mg Calcium/Vitamin D (Oscal-D 250 Mg-125 Units Tab) 1 tab PO DAILY [facility] Last Admin: 12/25/16 09:27 Dose: 1 tab Enoxaparin Sodium (Lovenox) 40 mg SC DAILY [facility] Last Admin: 12/24/16 11:01 Dose: 40 mg Furosemide (Lasix) 20 mg IVP DAILY [facility] Last Admin: 12/25/16 14:53 Dose: 20 mg Piperacillin Sod/Tazobactam (Sod 3.375 gm/ Sodium Chloride) 100 mls @ 200 mls/ hr IVPB Q6H [facility] Last Admin: 12/25/16 15:45 Dose: Not Given Lactated Ringer's (Lactated Ringer's) 1,000 mls @ 75 mls/hr IV .[id number] [facility] Last Admin: 12/25/16 05:36 Dose: 75 mls/hr Ketorolac Tromethamine (Toradol) 15 mg IVP Q6 [facility] Stop: 12/28/16 18:01 Last Admin: 12/25/16 14:54 Dose: 15 mg Nicotine (Nicoderm Cq) 1 patch TD DAILY [facility] Last Admin: 12/25/16 09:28 Dose: 1 patch Ondansetron HCl (Zofran Inj) 4 mg IVP Q6H PRN PRN Reason: Nausea/Vomiting Oxycodone/Acetaminophen (Percocet 5/325 Mg Tab) 1 tab PO Q4H PRN PRN Reason: Pain, moderate (4-7) Stop: 12/27/16 17:39 Last Admin: 12/25/16 09:09 Dose: 1 tab Potassium Chloride (K-Dur 20 Meq Er Tab) 40 meq PO DAILY [facility] Last Admin: 12/25/16 09:28 Dose: 40 meq Zolpidem Tartrate (Ambien) 5 mg PO HS PRN PRN Reason: Insomnia Last Admin: 12/21/16 22:33 Dose: 5 mg - Labs Labs: 12/25/16 07:43 12/25/16 12:55 APTT 29 SECONDS (21-34) 12/24/16 07:16
--- NOTE | 2016-12-25 16:22 | CP.PCM.PN ---
Subjective - Date & Time of Evaluation Date of Evaluation: 12/25/16 Time of Evaluation: 07:20 - Subjective Subjective: Patient seen and examined this morning. As per nursing patient had 4-5 dark bloody bowel movements over night. Patient is passing flatus, +BM. Tolerating diet. Complaining of nausea and diarrhea. Hgb 6.5, order 2 units of PRBCs. Objective - Vital Signs/Intake and Output Vital Signs (last 24 hours): Temp Pulse Resp BP Pulse Ox 98.7 F 110 H 18 147/90 97 12/25/16 15:00 12/25/16 15:00 12/25/16 15:00 12/25/16 15:00 12/25/16 07:00 Intake and Output: 12/25/16 12/25/16 06:59 18:59 Intake Total 825 2195 Balance 825 2195 - Medications Medications: Current Medications Acetaminophen (Tylenol 325mg Tab) 650 mg PO Q6 PRN PRN Reason: Fever >100.4 F Last Admin: 12/24/16 00:05 Dose: 650 mg Calcium/Vitamin D (Oscal-D 250 Mg-125 Units Tab) 1 tab PO DAILY [facility] Last Admin: 12/25/16 09:27 Dose: 1 tab Enoxaparin Sodium (Lovenox) 40 mg SC DAILY [facility] Last Admin: 12/24/16 11:01 Dose: 40 mg Furosemide (Lasix) 20 mg IVP DAILY [facility] Last Admin: 12/25/16 14:53 Dose: 20 mg Piperacillin Sod/Tazobactam (Sod 3.375 gm/ Sodium Chloride) 100 mls @ 200 mls/ hr IVPB Q6H [facility] Last Admin: 12/25/16 15:45 Dose: Not Given Lactated Ringer's (Lactated Ringer's) 1,000 mls @ 75 mls/hr IV .[id number] [facility] Last Admin: 12/25/16 05:36 Dose: 75 mls/hr Ketorolac Tromethamine (Toradol) 15 mg IVP Q6 [facility] Stop: 12/28/16 18:01 Last Admin: 12/25/16 14:54 Dose: 15 mg Nicotine (Nicoderm Cq) 1 patch TD DAILY [facility] Last Admin: 12/25/16 09:28 Dose: 1 patch Ondansetron HCl (Zofran Inj) 4 mg IVP Q6H PRN PRN Reason: Nausea/Vomiting Oxycodone/Acetaminophen (Percocet 5/325 Mg Tab) 1 tab PO Q4H PRN PRN Reason: Pain, moderate (4-7) Stop: 12/27/16 17:39 Last Admin: 12/25/16 09:09 Dose: 1 tab Potassium Chloride (K-Dur 20 Meq Er Tab) 40 meq PO DAILY [facility] Last Admin: 12/25/16 09:28 Dose: 40 meq Zolpidem Tartrate (Ambien) 5 mg PO HS PRN PRN Reason: Insomnia Last Admin: 12/21/16 22:33 Dose: 5 mg - Labs Labs: 12/25/16 07:43 12/25/16 12:55 APTT 29 SECONDS (21-34) 12/24/16 07:16 - Constitutional Appears: No Acute Distress - Head Exam Head Exam: NORMOCEPHALIC - ENT Exam ENT Exam: Mucous Membranes Moist - Respiratory Exam Respiratory Exam: NORMAL BREATHING PATTERN - Cardiovascular Exam Cardiovascular Exam: +S1, +S2 - GI/Abdominal Exam GI & Abdominal Exam: Soft, Tenderness - Neurological Exam Neurological Exam: Alert, Awake, Oriented x3 - Psychiatric Exam Psychiatric exam: Normal Mood - Skin Skin Exam: Dry, Warm Assessment and Plan - Assessment and Plan (Free Text) Assessment: 61F s/p incisional hernia repair POD3 -Transfuse PRBCs x2 -ABx -Monitor bowel function -Monitor for bloody bowel movements -Encourage patient out of bed to chair, ambulate -Encourage incentive spirometer use -Analgesics/anti-emetics -Tylenol prn fever>100.4 -GI/DVT ppx -Further recs per Dr. Dg Merida PGY-2
[2016-12-25 23:28] LABS: EOS # 0.1 K/uL (0.0-0.7); NRBC % 0.1 % (0.0-2.0); RED CELL DISTRIBUTION WIDTH 14.5 % (11.5-14.5)
[2016-12-25 23:33] LABS: BASO % 0.3 % (0.0-2.0); EOS % 0.9 % (0.0-4.0); HEMATOCRIT 23.6 % (34.0-47.0); INR 1.1; LYMPH # 1.4 K/uL (1.0-4.3); LYMPH % 9.5 % (20.0-40.0); MEAN CORPUSCULAR HEMOGLOBIN 29.4 pg (27.0-31.0); MEAN CORPUSCULAR HGB CONC 33.4 g/dL (33.0-37.0); MONO # 0.9 K/uL (0.0-0.8); MONO % 6.4 % (0.0-10.0); PLATELET COUNT 187 K/uL (130-400); WHITE BLOOD COUNT 14.3 K/uL (4.8-10.8)
[2016-12-25 23:59] LABS: EOSINOPHIL 1 % (0-4); NEUTROPHIL 85 % (50-75); NUCLEATED RED BLOOD CELL 1 % (0-0); TOTAL CELLS COUNTED 100
[2016-12-26] MEDS ORDERED: Iodixanol 320 MG/ML 100 ML BOTTLE IV ONE
--- NOTE | 2016-12-26 00:27 | CT ---
EXAM: CT Abdomen Without and With Intravenous Contrast CLINICAL HISTORY: 61 years old, female; Pain and signs and symptoms; Other: Active bleeding; Abdominal pain; Localized; Lower; Prior surgery; Additional info: Active gi bleed TECHNIQUE: Axial computed tomography images of the abdomen without and with intravenous contrast during the arterial phase of enhancement. All CT scans at this facility use one or more dose reduction techniques, viz.: automated exposure control; ma/kV adjustment per patient size (including targeted exams where dose is matched to indication; i.e. head); or iterative reconstruction technique. Coronal and sagittal reformatted images were created and reviewed. CONTRAST: 100 mL of [id number] administered intravenously. COMPARISON: No relevant prior studies available. FINDINGS: Lower thorax: Small bilateral pleural effusions. Aorta: Atherosclerotic vascular disease. No abdominal aortic aneurysm. No dissection. Celiac trunk and mesenteric arteries: No acute findings. No occlusion or significant stenosis. Renal arteries: No acute findings. No occlusion or significant stenosis. Liver: Bilobed hypodense lesion in right hepatic lobe measuring 2.4 x 1.1 CM. Probable complex cyst. Trace subhepatic fluid. Gallbladder and bile ducts: Gallbladder is visualized. Probable cholecystectomy. Correlate clinically. No ductal dilation. Pancreas: Unremarkable. No ductal dilation. No mass. Spleen: Unremarkable. No splenomegaly. Adrenals: Unremarkable. No mass. Kidneys and ureters: Small right renal hypodensity, probable cyst. Left kidney is unremarkable. No obstructing stones. No hydronephrosis. Stomach and bowel: No active contrast extravasation into the visualized loops of bowel. No obstruction. Intraperitoneal space: Moderate amount of free fluid in the left paracolic gutter. Couple of disproportionately fluid-filled dilated loops near anastomosis. No free air. Bones/joints: Extensive spinal degenerative changes. No acute fracture. No dislocation. Soft tissues: Midline skin cedric. Lymph nodes: Unremarkable. No enlarged lymph nodes. Other findings: Extensive upper abdominal surgery. Correlate with surgical history. IMPRESSION: 1. Status post extensive abdominal surgery. No evidence of active intraluminal contrast extravasation to suggest active bleed of arterial etiology. 2. Remainder of findings as above.
--- NOTE | 2016-12-26 00:43 | CP.PCM.PN ---
Subjective - Date & Time of Evaluation Date of Evaluation: 12/26/16 Time of Evaluation: 00:41 - Subjective Subjective: SURGERY NOTE FOR DR. GOLDEN 61F seen and examined at bedside. Patient recently had two bloody bowel movements. Tolerating diet, denies nausea/vomiting. Patient not getting up from bed to walk. Refuses walking although encouraged multiple times. Objective - Vital Signs/Intake and Output Vital Signs (last 24 hours): Temp Pulse Resp BP Pulse Ox 99.1 F 101 H 20 147/102 H 100 12/25/16 23:55 12/25/16 23:55 12/25/16 23:55 12/25/16 23:55 12/25/16 23:55 Intake and Output: 12/25/16 12/26/16 18:59 06:59 Intake Total 2195 330 Balance 2195 330 - Medications Medications: Current Medications Acetaminophen (Tylenol 325mg Tab) 650 mg PO Q6 PRN PRN Reason: Fever >100.4 F Last Admin: 12/24/16 00:05 Dose: 650 mg Calcium/Vitamin D (Oscal-D 250 Mg-125 Units Tab) 1 tab PO DAILY [facility] Last Admin: 12/25/16 09:27 Dose: 1 tab Enoxaparin Sodium (Lovenox) 40 mg SC DAILY [facility] Last Admin: 12/24/16 11:01 Dose: 40 mg Furosemide (Lasix) 20 mg IVP DAILY [facility] Last Admin: 12/25/16 14:53 Dose: 20 mg Piperacillin Sod/Tazobactam (Sod 3.375 gm/ Sodium Chloride) 100 mls @ 200 mls/ hr IVPB Q6H [facility] Last Admin: 12/25/16 23:23 Dose: 200 mls/hr Lactated Ringer's (Lactated Ringer's) 1,000 mls @ 75 mls/hr IV .[id number] [facility] Last Admin: 12/25/16 16:30 Dose: Not Given Nicotine (Nicoderm Cq) 1 patch TD DAILY [facility] Last Admin: 12/25/16 09:28 Dose: 1 patch Ondansetron HCl (Zofran Inj) 4 mg IVP Q6H PRN PRN Reason: Nausea/Vomiting Oxycodone/Acetaminophen (Percocet 5/325 Mg Tab) 1 tab PO Q4H PRN PRN Reason: Pain, moderate (4-7) Stop: 12/27/16 17:39 Last Admin: 12/25/16 23:22 Dose: 1 tab Potassium Chloride (K-Dur 20 Meq Er Tab) 40 meq PO DAILY [facility] Last Admin: 12/25/16 09:28 Dose: 40 meq Zolpidem Tartrate (Ambien) 5 mg PO HS PRN PRN Reason: Insomnia Last Admin: 12/21/16 22:33 Dose: 5 mg - Labs Labs: 12/25/16 23:25 12/25/16 12:55 PT 12.2 SECONDS (9.7-12.2) 12/25/16 23:25 INR 1.1 12/25/16 23:25 APTT 29 SECONDS (21-34) 12/24/16 07:16 - Constitutional Appears: Non-toxic - Respiratory Exam Respiratory Exam: Clear to Ausculation Bilateral, NORMAL BREATHING PATTERN - Cardiovascular Exam Cardiovascular Exam: REGULAR RHYTHM, +S1, +S2 - GI/Abdominal Exam GI & Abdominal Exam: Soft, Tenderness (mildly tender). absent: Distended, Firm , Guarding, Rigid, Rebound Additional comments: dressings clean dry intact - Neurological Exam Neurological Exam: Alert, Awake - Psychiatric Exam Additional comments: annoyed and agitated that she is having bloody bowel movements Assessment and Plan - Assessment and Plan (Free Text) Assessment: 61F s/p incisional hernia repair POD5 Repeat CBC after 2 units - 7.9 CT angio of abdomen - shows no active bleed Plan: -Monitor for bloody bowel movements -Encourage patient out of bed to chair, ambulate -Encourage incentive spirometer use -Further recs per Dr. Dg Gage, PGY2
[2016-12-26] MEDS: Oxycodone/Acetaminophen 5/325 mg Tab PO PRN (04:04)
[2016-12-26] MEDS: Piperacillin/Tazobact 3.375 GM in Sodium Chloride 100 ML IVPB SCH ×4 (05:07→21:54)
[2016-12-26 07:32] LABS: HEMATOCRIT 23.7 % (34.0-47.0); MEAN CELL VOLUME 87.7 fL (81.0-99.0); MEAN CORPUSCULAR HEMOGLOBIN 29.2 pg (27.0-31.0); MEAN CORPUSCULAR HGB CONC 33.2 g/dL (33.0-37.0); MEAN PLATELET VOLUME 7.8 fL (7.2-11.7); RED CELL DISTRIBUTION WIDTH 14.5 % (11.5-14.5); WHITE BLOOD COUNT 16.2 K/uL (4.8-10.8)
[2016-12-26 08:17] LABS: CHLORIDE 101 mmol/L (98-107)
[2016-12-26 08:18] LABS: POTASSIUM 3.4 mmol/L (3.6-5.2); SODIUM 134 mmol/L (132-148)
[2016-12-26 08:20] LABS: ALB/GLOB RATIO 0.7 (1.0-2.1); ALKALINE PHOSPHATASE 65 U/L (38-126); ALT/SGPT 27 U/L (9-52); AST/SGOT 19 U/L (14-36); BILIRUBIN,TOTAL 0.7 mg/dL (0.2-1.3); BLOOD UREA NITROGEN 9 mg/dL (7-17); CARBON DIOXIDE 21 mmol/L (22-30); GFR AFRICAN-AMERICAN > 60; GLUCOSE,RANDOM 68 mg/dL (65-105); TOTAL PROTEIN 5.1 g/dL (6.3-8.3)
[2016-12-26 08:21] LABS: CALCIUM 7.5 mg/dl (8.6-10.4)
[2016-12-26] MEDS ORDERED: Propofol 10 mg/ml Inj (20 ML) ONE (09:28)
[2016-12-26] MEDS ORDERED: Lactated Ringer's 500 ML IV ONE (09:28)
--- NOTE | 2016-12-26 09:52 | CP.PCM.PN ---
Subjective - Date & Time of Evaluation Date of Evaluation: 12/26/16 Time of Evaluation: 09:47 - Subjective Subjective: pt had rectal bleeding twice last night gi consult called dr mike real this am has blood in the stomack and hematomas and nlcer vss [id number] last hgb stable 7.6 pt will go to icu for close moniter ass acute gi bleeding s/p hernia repair and s/p beritric surgery ys ago aneamia secondry to blood loss gi bleedind htn plan as per icu Objective - Vital Signs/Intake and Output Vital Signs (last 24 hours): Temp Pulse Resp BP Pulse Ox 98.2 F 100 H 20 158/109 H 96 12/26/16 09:34 12/26/16 09:34 12/26/16 09:34 12/26/16 09:34 12/26/16 09:34 Intake and Output: 12/26/16 12/26/16 06:59 18:59 Intake Total 785 770 Balance 785 770 - Medications Medications: Current Medications Acetaminophen (Tylenol 325mg Tab) 650 mg PO Q6 PRN PRN Reason: Fever >100.4 F Last Admin: 12/24/16 00:05 Dose: 650 mg Calcium/Vitamin D (Oscal-D 250 Mg-125 Units Tab) 1 tab PO DAILY [facility] Last Admin: 12/25/16 09:27 Dose: 1 tab Enoxaparin Sodium (Lovenox) 40 mg SC DAILY [facility] Last Admin: 12/24/16 11:01 Dose: 40 mg Furosemide (Lasix) 20 mg IVP DAILY [facility] Last Admin: 12/25/16 14:53 Dose: 20 mg Piperacillin Sod/Tazobactam (Sod 3.375 gm/ Sodium Chloride) 100 mls @ 200 mls/ hr IVPB Q6H [facility] Last Admin: 12/26/16 05:07 Dose: 200 mls/hr Lactated Ringer's (Lactated Ringer's) 1,000 mls @ 75 mls/hr IV .[id number] [facility] Last Admin: 12/25/16 16:30 Dose: Not Given Nicotine (Nicoderm Cq) 1 patch TD DAILY [facility] Last Admin: 12/25/16 09:28 Dose: 1 patch Ondansetron HCl (Zofran Inj) 4 mg IVP Q6H PRN PRN Reason: Nausea/Vomiting Oxycodone/Acetaminophen (Percocet 5/325 Mg Tab) 1 tab PO Q4H PRN PRN Reason: Pain, moderate (4-7) Stop: 12/27/16 17:39 Last Admin: 12/26/16 04:04 Dose: 1 tab Potassium Chloride (K-Dur 20 Meq Er Tab) 40 meq PO DAILY [facility] Last Admin: 12/25/16 09:28 Dose: 40 meq Zolpidem Tartrate (Ambien) 5 mg PO HS PRN PRN Reason: Insomnia Last Admin: 12/21/16 22:33 Dose: 5 mg - Labs Labs: 12/26/16 07:23 12/26/16 07:23 PT 12.2 SECONDS (9.7-12.2) 12/25/16 23:25 INR 1.1 12/25/16 23:25 APTT 26 SECONDS (21-34) 12/26/16 07:23
--- NOTE | 2016-12-26 10:14 | CP.PCM.PN ---
Subjective - Date & Time of Evaluation Date of Evaluation: 12/26/16 Time of Evaluation: 10:13 - Subjective Subjective: discussed with Dr Bautista ulcer in jejunum with visible mesh will sk Dr Nevarez for management opinion needs additional transfusion Objective - Vital Signs/Intake and Output Vital Signs (last 24 hours): Temp Pulse Resp BP Pulse Ox 98.2 F 100 H 20 158/109 H 96 12/26/16 09:34 12/26/16 09:34 12/26/16 09:34 12/26/16 09:34 12/26/16 09:34 Intake and Output: 12/26/16 12/26/16 06:59 18:59 Intake Total 785 770 Balance 785 770 - Medications Medications: Current Medications Acetaminophen (Tylenol 325mg Tab) 650 mg PO Q6 PRN PRN Reason: Fever >100.4 F Last Admin: 12/24/16 00:05 Dose: 650 mg Calcium/Vitamin D (Oscal-D 250 Mg-125 Units Tab) 1 tab PO DAILY [facility] Last Admin: 12/25/16 09:27 Dose: 1 tab Enoxaparin Sodium (Lovenox) 40 mg SC DAILY [facility] Last Admin: 12/24/16 11:01 Dose: 40 mg Furosemide (Lasix) 20 mg IVP DAILY [facility] Last Admin: 12/25/16 14:53 Dose: 20 mg Piperacillin Sod/Tazobactam (Sod 3.375 gm/ Sodium Chloride) 100 mls @ 200 mls/ hr IVPB Q6H [facility] Last Admin: 12/26/16 05:07 Dose: 200 mls/hr Lactated Ringer's (Lactated Ringer's) 1,000 mls @ 75 mls/hr IV .[id number] [facility] Last Admin: 12/25/16 16:30 Dose: Not Given Pantoprazole Sodium 80 mg/ (Sodium Chloride) 100 mls @ 1,200 mls/hr IVP ONCE [facility] Pantoprazole Sodium 80 mg/ (Sodium Chloride) 100 mls @ 10 mls/hr IVP .Q10H [facility] PRN Reason: 8 MG/HR Nicotine (Nicoderm Cq) 1 patch TD DAILY [facility] Last Admin: 12/25/16 09:28 Dose: 1 patch Ondansetron HCl (Zofran Inj) 4 mg IVP Q6H PRN PRN Reason: Nausea/Vomiting Oxycodone/Acetaminophen (Percocet 5/325 Mg Tab) 1 tab PO Q4H PRN PRN Reason: Pain, moderate (4-7) Stop: 12/27/16 17:39 Last Admin: 12/26/16 04:04 Dose: 1 tab Potassium Chloride (K-Dur 20 Meq Er Tab) 40 meq PO DAILY [facility] Last Admin: 12/25/16 09:28 Dose: 40 meq Zolpidem Tartrate (Ambien) 5 mg PO HS PRN PRN Reason: Insomnia Last Admin: 12/21/16 22:33 Dose: 5 mg - Labs Labs: 12/26/16 07:23 12/26/16 07:23 PT 12.2 SECONDS (9.7-12.2) 12/25/16 23:25 INR 1.1 12/25/16 23:25 APTT 26 SECONDS (21-34) 12/26/16 07:23
[2016-12-26] MEDS ORDERED: Pantoprazole 80 MG in Sodium Chloride 0.9% 100 ML IVP SCH (10:15)
[2016-12-26] MEDS ORDERED: Pantoprazole 80 MG in Sodium Chloride 0.9% 100 ML IVP ONE (10:15)
--- NOTE | 2016-12-26 10:25 | CP.PCM.CON ---
History of Present Illness - History of Present Illness History of Present Illness: This is a 61 year old woman with GI bleeding. Patient has a history of gastric bypass surgery more than ten years ago. 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 She was readmitted for incisional hernia repair on 12/21/2016. Extensive adhesions were encountered. A small bowel tear occurred necessitating resection and anastomosis. Patient began to pass dark red bowel movements overnight 12/24-12/25. Progress notes document four or five such dark stools. The [facility] had dang 12.0 on dropped to 9.4 on 12/22/2016, 8.6 on 12/24 and 6.5 on 12/25. There were at least three additional episodes of bleeding during the day yesterday. Gi consult was called at 22:36. At present, patient is nauseated but denies vomiting, abdominal pain, difficulty swallowing. She had one episode of heartburn yesterday. She estimates that there were ten bloody bowel movements in total. Review of Systems - Review of Systems All systems: reviewed and no additional remarkable complaints except - Gastrointestinal Gastrointestinal: Heartburn, Melena, Nausea. absent: Abdominal Pain, Dysphagia , Vomiting Past Patient History - Infectious Disease Hx of Infectious Diseases: None - Past Medical History & Family History Past Medical History?: Yes - Past Social History Smoking Status: Heavy Smoker > 10 Cigarettes Daily - CARDIAC Hx Cardiac Disorders: Yes Hx Cardia Arrhythmia: Yes (" MY HEART RATE HAS ALWAYS BEEN A LITLLE FAST 105 OR SO.") Hx Hypertension: Yes Hx Peripheral Edema: Yes (left ankle) - PULMONARY Hx Respiratory Disorders: Yes Hx Asthma: Yes Hx Bronchitis: Yes - HEMATOLOGICAL/ONCOLOGICAL Hx Blood Disorders: Yes Hx Anemia: Yes Hx Blood Transfusions: Yes Hx Blood Transfusion Reaction: No Hx Hepatitis A: Yes - MUSCULOSKELETAL/RHEUMATOLOGICAL Hx Falls: No - GASTROINTESTINAL Hx Gastrointestinal Disorders: Yes Hx Bowel Surgery: Yes (gastric bypass) Hx Gall Bladder Disease: Yes - GENITOURINARY/GYNECOLOGICAL Hx Genitourinary Disorders: Yes (hx ovarian cyst) - PSYCHIATRIC Hx Substance Use: No - SURGICAL HISTORY Hx Surgeries: Yes Hx Cholecystectomy: Yes (03/2016) Hx Gastric Bypass Surgery: Yes Hx Hysterectomy: Yes Hx Joint Replacement: Yes (bilat hips 06/2005 and 09/2005) Hx Tubal Ligation: Yes Other/Comment: HX: CERVICAL SURGERY FOR HERNIATED DISC(S) -RODS PLACED. Ovarian cyst removal. - ANESTHESIA Hx Anesthesia: Yes Hx Anesthesia Reactions: No Hx Malignant Hyperthermia: No Has any member of the family had a problem w/ anesthesia?: No Meds Allergies/Adverse Reactions: Allergies Allergy/AdvReac Type Severity Reaction Status Date / Time No Known Allergies Allergy Verified 11/23/16 11:25 - Medications Medications: Current Medications Acetaminophen (Tylenol 325mg Tab) 650 mg PO Q6 PRN PRN Reason: Fever >100.4 F Last Admin: 12/24/16 00:05 Dose: 650 mg Calcium/Vitamin D (Oscal-D 250 Mg-125 Units Tab) 1 tab PO DAILY [facility] Last Admin: 12/25/16 09:27 Dose: 1 tab Enoxaparin Sodium (Lovenox) 40 mg SC DAILY [facility] Last Admin: 12/24/16 11:01 Dose: 40 mg Furosemide (Lasix) 20 mg IVP DAILY [facility] Last Admin: 12/25/16 14:53 Dose: 20 mg Piperacillin Sod/Tazobactam (Sod 3.375 gm/ Sodium Chloride) 100 mls @ 200 mls/ hr IVPB Q6H [facility] Last Admin: 12/26/16 05:07 Dose: 200 mls/hr Lactated Ringer's (Lactated Ringer's) 1,000 mls @ 75 mls/hr IV .[id number] [facility] Last Admin: 12/25/16 16:30 Dose: Not Given Pantoprazole Sodium 80 mg/ (Sodium Chloride) 100 mls @ 600 mls/hr IVP ONCE ONE Stop: 12/26/16 10:24 Pantoprazole Sodium 80 mg/ (Sodium Chloride) 100 mls @ 10 mls/hr IVP .Q10H [facility] PRN Reason: 8 MG/HR Nicotine (Nicoderm Cq) 1 patch TD DAILY [facility] Last Admin: 12/25/16 09:28 Dose: 1 patch Ondansetron HCl (Zofran Inj) 4 mg IVP Q6H PRN PRN Reason: Nausea/Vomiting Oxycodone/Acetaminophen (Percocet 5/325 Mg Tab) 1 tab PO Q4H PRN PRN Reason: Pain, moderate (4-7) Stop: 12/27/16 17:39 Last Admin: 12/26/16 04:04 Dose: 1 tab Potassium Chloride (K-Dur 20 Meq Er Tab) 40 meq PO DAILY [facility] Last Admin: 12/25/16 09:28 Dose: 40 meq Zolpidem Tartrate (Ambien) 5 mg PO HS PRN PRN Reason: Insomnia Last Admin: 12/21/16 22:33 Dose: 5 mg Physical Exam - Head Exam Head Exam: ATRAUMATIC, NORMOCEPHALIC - Eye Exam Eye Exam: EOMI, PERRL - Neck Exam Neck exam: Negative for: Lymphadenopathy, Thyromegaly - Respiratory Exam Respiratory Exam: NORMAL BREATHING PATTERN. absent: Rales, Rhonchi, Wheezes - Cardiovascular Exam Cardiovascular Exam: REGULAR RHYTHM, +S1, +S2. absent: Gallop, Rubs, Systolic Murmur - GI/Abdominal Exam GI & Abdominal Exam: Distended, Firm, Normal Bowel Sounds. absent: Mass, Organomegaly, Tenderness - Rectal Exam Rectal Exam: Deferred - Extremities Exam Extremities exam: Negative for: calf tenderness, pedal edema Results - Vital Signs Recent Vital Signs: Last Vital Signs Temp 98.2 F 12/26/16 09:34 Pulse 100 H 12/26/16 09:34 Resp 20 12/26/16 09:34 BP 158/109 H 12/26/16 09:34 Pulse Ox 96 12/26/16 09:34 - Labs Result Diagrams: 12/26/16 07:23 12/26/16 07:23 Labs: Laboratory Results - last 24 hr 12/25/16 12/25/16 12/25/16 09:44 12:55 23:25 WBC 14.3 H RBC 2.68 L Hgb 7.9 L Hct 23.6 L MCV 88.0 D MCH 29.4 MCHC 33.4 RDW 14.5 Plt Count 187 MPV 8.0 Neut % (Auto) 82.9 H Lymph % (Auto) 9.5 L [place] % (Auto) 6.4 Eos % (Auto) 0.9 Baso % (Auto) 0.3 Neut # 11.9 H Lymph # 1.4 [place] # 0.9 H Eos # 0.1 Baso # 0.0 Neutrophils % (Manual) 85 H Lymphocytes % (Manual) 11 L Monocytes % (Manual) 3 Eosinophils % (Manual) 1 Nucleated RBC % 1 H Platelet Estimate Normal PT INR APTT Sodium 137 Potassium 3.7 Chloride 101 Carbon Dioxide 25 Anion Gap 14 BUN 17 Creatinine 0.6 L Est GFR ( Amer) > 60 Est GFR (Non-Af Amer) > 60 Random Glucose 66 Calcium 7.1 L Total Bilirubin AST ALT Alkaline Phosphatase Total Protein Albumin Globulin Albumin/Globulin Ratio Stool Occult Blood Blood Type O POSITIVE Antibody Screen Negative 12/25/16 12/26/16 12/26/16 23:25 06:05 07:23 WBC 16.2 H RBC 2.70 L Hgb 7.9 L Hct 23.7 L MCV 87.7 MCH 29.2 MCHC 33.2 RDW 14.5 Plt Count 215 MPV 7.8 Neut % (Auto) Lymph % (Auto) [place] % (Auto) Eos % (Auto) Baso % (Auto) Neut # Lymph # [place] # Eos # Baso # Neutrophils % (Manual) Lymphocytes % (Manual) Monocytes % (Manual) Eosinophils % (Manual) Nucleated RBC % Platelet Estimate PT 12.2 INR 1.1 APTT Sodium Potassium Chloride Carbon Dioxide Anion Gap BUN Creatinine Est GFR ( Amer) Est GFR (Non-Af Amer) Random Glucose Calcium Total Bilirubin AST ALT Alkaline Phosphatase Total Protein Albumin Globulin Albumin/Globulin Ratio Stool Occult Blood Positive H Blood Type Antibody Screen 12/26/16 12/26/16 07:23 07:23 WBC RBC Hgb Hct MCV MCH MCHC RDW Plt Count MPV Neut % (Auto) Lymph % (Auto) [place] % (Auto) Eos % (Auto) Baso % (Auto) Neut # Lymph # [place] # Eos # Baso # Neutrophils % (Manual) Lymphocytes % (Manual) Monocytes % (Manual) Eosinophils % (Manual) Nucleated RBC % Platelet Estimate PT INR APTT 26 Sodium 134 Potassium 3.4 L Chloride 101 Carbon Dioxide 21 L Anion Gap 15 BUN 9 Creatinine 0.6 L Est GFR ( Amer) > 60 Est GFR (Non-Af Amer) > 60 Random Glucose 68 Calcium 7.5 L Total Bilirubin 0.7 AST 19 ALT 27 Alkaline Phosphatase 65 Total Protein 5.1 L Albumin 2.2 L Globulin 3.0 Albumin/Globulin Ratio 0.7 L Stool Occult Blood Blood Type Antibody Screen Assessment & Plan (1) Melena Assessment and Plan: Patient is having active bleeding characterized by dark stools. This is most likely from an upper GI source, possibly related to a marginal ulceration at the anastomosis for the gastric bypass. Patient will have upper endoscopy today. If negative, we will proceed to colonscopy. Status: Acute
--- NOTE | 2016-12-26 11:25 | CP.PCM.CON ---
History of Present Illness - History of Present Illness History of Present Illness: 61 year old female with extensive bariatric surgery history, beginning with open gastric bypass in , followed by "stomach stapling", also in the 1969, s most recently had a revision of her bypass (details unclear) in [address] Pena at [facility]. She is at [facility] (Formerly [facility]) now after undergoing an elective open abdominal hernia repair with mesh by Dr. Foster 5 days ago. We are being consulted because she was was having dark bloody stools , requiring blood transfusions (2 yesterday...raised Hgb from 6.5 to 7.9...now 2 more units ordered). Pt had upper endoscopy done today and after speaking with Dr. Waterman, the findings were a large (2cm) marginal ulcer with exposed mesh...no active bleeding at this time. Currently, the pt is in the recovery room in stable condition, denies pain, bp 156/106, pulse 102, [id number] on NC. Pt admits to smoking several cigarettes each day for several years, she also takes Celebrex and Percocet daily. She does take a generic form of Prilosec for GERD. Her last endoscopy was reportedly in Mar 2016 prior to her cholecystectomy and the pt says she was not told that she had an ulcer at that time. Past Patient History - Past Medical History & Family History Past Medical History?: Yes - Past Social History Smoking Status: Heavy Smoker > 10 Cigarettes Daily - CARDIAC Hx Cardiac Disorders: Yes Hx Cardia Arrhythmia: Yes (" MY HEART RATE HAS ALWAYS BEEN A LITLLE FAST 105 OR SO.") Hx Hypertension: Yes Hx Peripheral Edema: Yes (left ankle) - PULMONARY Hx Respiratory Disorders: Yes Hx Asthma: Yes Hx Bronchitis: Yes - HEMATOLOGICAL/ONCOLOGICAL Hx Blood Disorders: Yes Hx Anemia: Yes Hx Blood Transfusions: Yes Hx Blood Transfusion Reaction: No Hx Hepatitis A: Yes - MUSCULOSKELETAL/RHEUMATOLOGICAL Hx Falls: No - GASTROINTESTINAL Hx Gastrointestinal Disorders: Yes Hx Bowel Surgery: Yes (gastric bypass) Hx Gall Bladder Disease: Yes - GENITOURINARY/GYNECOLOGICAL Hx Genitourinary Disorders: Yes (hx ovarian cyst) - PSYCHIATRIC Hx Substance Use: No - SURGICAL HISTORY Hx Surgeries: Yes Hx Cholecystectomy: Yes (03/2016) Hx Gastric Bypass Surgery: Yes Hx Hysterectomy: Yes Hx Joint Replacement: Yes (bilat hips 06/2005 and 09/2005) Hx Tubal Ligation: Yes Other/Comment: HX: CERVICAL SURGERY FOR HERNIATED DISC(S) -RODS PLACED. Ovarian cyst removal. - ANESTHESIA Hx Anesthesia: Yes Hx Anesthesia Reactions: No Hx Malignant Hyperthermia: No Has any member of the family had a problem w/ anesthesia?: No Meds Allergies/Adverse Reactions: Allergies Allergy/AdvReac Type Severity Reaction Status Date / Time No Known Allergies Allergy Verified 11/23/16 11:25 - Medications Medications: Current Medications Acetaminophen (Tylenol 325mg Tab) 650 mg PO Q6 PRN PRN Reason: Fever >100.4 F Last Admin: 12/24/16 00:05 Dose: 650 mg Calcium/Vitamin D (Oscal-D 250 Mg-125 Units Tab) 1 tab PO DAILY [facility] Last Admin: 12/25/16 09:27 Dose: 1 tab Enoxaparin Sodium (Lovenox) 40 mg SC DAILY [facility] Last Admin: 12/24/16 11:01 Dose: 40 mg Furosemide (Lasix) 20 mg IVP DAILY [facility] Last Admin: 12/25/16 14:53 Dose: 20 mg Piperacillin Sod/Tazobactam (Sod 3.375 gm/ Sodium Chloride) 100 mls @ 200 mls/ hr IVPB Q6H [facility] Last Admin: 12/26/16 05:07 Dose: 200 mls/hr Lactated Ringer's (Lactated Ringer's) 1,000 mls @ 75 mls/hr IV .[id number] [facility] Last Admin: 12/25/16 16:30 Dose: Not Given Pantoprazole Sodium 80 mg/ (Sodium Chloride) 100 mls @ 10 mls/hr IVPB .Q10H [facility] PRN Reason: 8 MG/HR Nicotine (Nicoderm Cq) 1 patch TD DAILY [facility] Last Admin: 12/25/16 09:28 Dose: 1 patch Ondansetron HCl (Zofran Inj) 4 mg IVP Q6H PRN PRN Reason: Nausea/Vomiting Oxycodone/Acetaminophen (Percocet 5/325 Mg Tab) 1 tab PO Q4H PRN PRN Reason: Pain, moderate (4-7) Stop: 12/27/16 17:39 Last Admin: 12/26/16 04:04 Dose: 1 tab Potassium Chloride (K-Dur 20 Meq Er Tab) 40 meq PO DAILY [facility] Last Admin: 12/25/16 09:28 Dose: 40 meq Zolpidem Tartrate (Ambien) 5 mg PO HS PRN PRN Reason: Insomnia Last Admin: 12/21/16 22:33 Dose: 5 mg Physical Exam - Constitutional Appears: No Acute Distress - GI/Abdominal Exam Additional comments: Abdominal binder and wound dressing covering recent incision, abdomen is not acutely tender, no peritoneal signs Results - Vital Signs Recent Vital Signs: Last Vital Signs Temp 98.2 F 12/26/16 09:34 Pulse 100 H 12/26/16 09:34 Resp 20 12/26/16 09:34 BP 158/109 H 12/26/16 09:34 Pulse Ox 96 12/26/16 09:34 - Labs Result Diagrams: 12/26/16 07:23 12/26/16 07:23 Labs: Laboratory Results - last 24 hr 12/25/16 12/25/16 12/25/16 09:44 12:55 23:25 WBC 14.3 H RBC 2.68 L Hgb 7.9 L Hct 23.6 L MCV 88.0 D MCH 29.4 MCHC 33.4 RDW 14.5 Plt Count 187 MPV 8.0 Neut % (Auto) 82.9 H Lymph % (Auto) 9.5 L Craig % (Auto) 6.4 Eos % (Auto) 0.9 Baso % (Auto) 0.3 Neut # 11.9 H Lymph # 1.4 Craig # 0.9 H Eos # 0.1 Baso # 0.0 Neutrophils % (Manual) 85 H Lymphocytes % (Manual) 11 L Monocytes % (Manual) 3 Eosinophils % (Manual) 1 Nucleated RBC % 1 H Platelet Estimate Normal PT INR APTT Sodium 137 Potassium 3.7 Chloride 101 Carbon Dioxide 25 Anion Gap 14 BUN 17 Creatinine 0.6 L Est GFR ( Amer) > 60 Est GFR (Non-Af Amer) > 60 Random Glucose 66 Calcium 7.1 L Total Bilirubin AST ALT Alkaline Phosphatase Total Protein Albumin Globulin Albumin/Globulin Ratio Stool Occult Blood Blood Type O POSITIVE Antibody Screen Negative 12/25/16 12/26/16 12/26/16 23:25 06:05 07:23 WBC 16.2 H RBC 2.70 L Hgb 7.9 L Hct 23.7 L MCV 87.7 MCH 29.2 MCHC 33.2 RDW 14.5 Plt Count 215 MPV 7.8 Neut % (Auto) Lymph % (Auto) Craig % (Auto) Eos % (Auto) Baso % (Auto) Neut # Lymph # Craig # Eos # Baso # Neutrophils % (Manual) Lymphocytes % (Manual) Monocytes % (Manual) Eosinophils % (Manual) Nucleated RBC % Platelet Estimate PT 12.2 INR 1.1 APTT Sodium Potassium Chloride Carbon Dioxide Anion Gap BUN Creatinine Est GFR ( Amer) Est GFR (Non-Af Amer) Random Glucose Calcium Total Bilirubin AST ALT Alkaline Phosphatase Total Protein Albumin Globulin Albumin/Globulin Ratio Stool Occult Blood Positive H Blood Type Antibody Screen 12/26/16 12/26/16 07:23 07:23 WBC RBC Hgb Hct MCV MCH MCHC RDW Plt Count MPV Neut % (Auto) Lymph % (Auto) Craig % (Auto) Eos % (Auto) Baso % (Auto) Neut # Lymph # Craig # Eos # Baso # Neutrophils % (Manual) Lymphocytes % (Manual) Monocytes % (Manual) Eosinophils % (Manual) Nucleated RBC % Platelet Estimate PT INR APTT 26 Sodium 134 Potassium 3.4 L Chloride 101 Carbon Dioxide 21 L Anion Gap 15 BUN 9 Creatinine 0.6 L Est GFR ( Amer) > 60 Est GFR (Non-Af Amer) > 60 Random Glucose 68 Calcium 7.5 L Total Bilirubin 0.7 AST 19 ALT 27 Alkaline Phosphatase 65 Total Protein 5.1 L Albumin 2.2 L Globulin 3.0 Albumin/Globulin Ratio 0.7 L Stool Occult Blood Blood Type Antibody Screen Assessment & Plan - Assessment and Plan (Free Text) Assessment: 61 y/o female with multiple open bariatric surgeries in the past, now with large marginal ulcer with recent bleeding, likely caused by daily cigarette smoking and NSAID usage, bleeding exacerbated by recent DVT prophylaxis while in the hospital for her hernia surgery. Plan: Would keep pt NPO for now. IV BID PPIs, po liquid Carafate, liquid MVI daily in her bag of IVF, would give pt an injection of B1 (sub cutaneous) and B12. Medical management is preferred at this point in time, given extensive surgical history and extremely high liklihood of dense adhesions/inflammatory process. I would like to try to obtain her operative report from [facility] if possible. Once pt's H/H stabilizes and she is tolerating liquids, she should continue daily BID PPIs plus liquids Carafate, stop smoking, and follow up with Dr. Pena for repeat upper endoscopies and potential revision of her gastrojejunostomy if the ulcer does not heal.
[2016-12-26] MEDS: HYDROmorphone 0.5 mg/0.5 ml ISec IVP PRN ×2 (12:28→20:08)
[2016-12-26] MEDS: Sucralfate 1 gm/10 ml Oral Susp UD PO SCH ×3 (12:28→23:07)
[2016-12-26] MEDS: Calcium-Vit D 250 mg-125 Units Tab UD PO SCH ×2 (12:39→14:59)
[2016-12-26] MEDS: Potassium Chloride 20 mEq ER Tab PO SCH ×2 (12:39→14:59)
[2016-12-26] MEDS: Pantoprazole 80 MG in Sodium Chloride 0.9% 100 ML IVPB SCH ×2 (15:00→23:07)
--- NOTE | 2016-12-26 17:07 | CP.PCM.CON ---
History of Present Illness - History of Present Illness History of Present Illness: ICU evaluation for GI bleeding Patient is 61-year-old female with history of gastric bypass surgery in 2002 who was admitted for incisional hernia repair on 12/21/2016, patient found to have extensive adhesions, small bowel serosal tear, small bowel mucosal tear, status post ventral hernia repair with mesh placement, small bowel resection/ anastomosis and extensive lysis of adhesions. Patient postop developed rectal bleeding status post packed RBCs transfusion, today had upper endoscopy done found to have a large (2cm) marginal ulcer with exposed mesh...no active bleeding at this time. Patient transferred to ICU for observation, no active bleeding noted and hemodynamically stable Review of Systems - Review of Systems All systems: reviewed and no additional remarkable complaints except (GI bleeding) Past Patient History - Infectious Disease Hx of Infectious Diseases: None - Past Medical History & Family History Past Medical History?: Yes - Past Social History Smoking Status: Heavy Smoker > 10 Cigarettes Daily - CARDIAC Hx Cardiac Disorders: Yes Hx Cardia Arrhythmia: Yes (" MY HEART RATE HAS ALWAYS BEEN A LITLLE FAST 105 OR SO.") Hx Hypertension: Yes Hx Peripheral Edema: Yes (left ankle) - PULMONARY Hx Respiratory Disorders: Yes Hx Asthma: Yes Hx Bronchitis: Yes - HEMATOLOGICAL/ONCOLOGICAL Hx Blood Disorders: Yes Hx Anemia: Yes Hx Blood Transfusions: Yes Hx Blood Transfusion Reaction: No Hx Hepatitis A: Yes - MUSCULOSKELETAL/RHEUMATOLOGICAL Hx Falls: No - GASTROINTESTINAL Hx Gastrointestinal Disorders: Yes Hx Bowel Surgery: Yes (gastric bypass) Hx Gall Bladder Disease: Yes - GENITOURINARY/GYNECOLOGICAL Hx Genitourinary Disorders: Yes (hx ovarian cyst) - PSYCHIATRIC Hx Substance Use: No - SURGICAL HISTORY Hx Surgeries: Yes Hx Cholecystectomy: Yes (03/2016) Hx Gastric Bypass Surgery: Yes Hx Hysterectomy: Yes Hx Joint Replacement: Yes (bilat hips 06/2005 and 09/2005) Hx Tubal Ligation: Yes Other/Comment: HX: CERVICAL SURGERY FOR HERNIATED DISC(S) -RODS PLACED. Ovarian cyst removal. - ANESTHESIA Hx Anesthesia: Yes Hx Anesthesia Reactions: No Hx Malignant Hyperthermia: No Has any member of the family had a problem w/ anesthesia?: No Meds Allergies/Adverse Reactions: Allergies Allergy/AdvReac Type Severity Reaction Status Date / Time No Known Allergies Allergy Verified 11/23/16 11:25 - Medications Medications: Current Medications Acetaminophen (Tylenol 325mg Tab) 650 mg PO Q6 PRN PRN Reason: Fever >100.4 F Last Admin: 12/24/16 00:05 Dose: 650 mg Calcium/Vitamin D (Oscal-D 250 Mg-125 Units Tab) 1 tab PO DAILY [facility] Last Admin: 12/26/16 14:59 Dose: 1 tab Enoxaparin Sodium (Lovenox) 40 mg SC DAILY [facility] Last Admin: 12/24/16 11:01 Dose: 40 mg Furosemide (Lasix) 20 mg IVP DAILY [facility] Last Admin: 12/26/16 14:59 Dose: 20 mg Hydromorphone HCl (Dilaudid) 0.5 mg IVP Q4H PRN PRN Reason: Pain, moderate (4-7) Last Admin: 12/26/16 12:28 Dose: 0.5 mg Piperacillin Sod/Tazobactam (Sod 3.375 gm/ Sodium Chloride) 100 mls @ 200 mls/ hr IVPB Q6H [facility] Last Admin: 12/26/16 14:54 Dose: Not Given Pantoprazole Sodium 80 mg/ (Sodium Chloride) 100 mls @ 10 mls/hr IVPB .Q10H [facility] PRN Reason: 8 MG/HR Last Admin: 12/26/16 15:00 Dose: 10 mls/hr Nicotine (Nicoderm Cq) 1 patch TD DAILY [facility] Last Admin: 12/26/16 13:18 Dose: 1 patch Ondansetron HCl (Zofran Inj) 4 mg IVP Q6H PRN PRN Reason: Nausea/Vomiting Oxycodone/Acetaminophen (Percocet 5/325 Mg Tab) 1 tab PO Q4H PRN PRN Reason: Pain, moderate (4-7) Stop: 12/27/16 17:39 Last Admin: 12/26/16 04:04 Dose: 1 tab Potassium Chloride (K-Dur 20 Meq Er Tab) 40 meq PO DAILY [facility] Last Admin: 12/26/16 14:59 Dose: 40 meq Sucralfate (Carafate Oral Susp) 1 gm PO Q6 [facility] Last Admin: 12/26/16 12:28 Dose: 1 gm Zolpidem Tartrate (Ambien) 5 mg PO HS PRN PRN Reason: Insomnia Last Admin: 12/21/16 22:33 Dose: 5 mg Physical Exam - Head Exam Head Exam: ATRAUMATIC, NORMOCEPHALIC - Eye Exam Eye Exam: EOMI - ENT Exam ENT Exam: Mucous Membranes Moist - Respiratory Exam Respiratory Exam: Clear to Auscultation Bilateral - Cardiovascular Exam Cardiovascular Exam: REGULAR RHYTHM - GI/Abdominal Exam GI & Abdominal Exam: Soft, Tenderness - Extremities Exam Extremities exam: Positive for: normal inspection - Neurological Exam Neurological exam: Alert, Oriented x3 Results - Vital Signs Recent Vital Signs: Last Vital Signs Temp 98.2 F 12/26/16 15:06 Pulse 102 H 12/26/16 15:06 Resp 18 12/26/16 15:06 BP 145/95 H 12/26/16 15:06 Pulse Ox 100 12/26/16 11:30 - Labs Result Diagrams: 12/26/16 07:23 12/26/16 07:23 Labs: Laboratory Results - last 24 hr 12/25/16 12/25/16 12/25/16 09:44 23:25 23:25 WBC 14.3 H RBC 2.68 L Hgb 7.9 L Hct 23.6 L MCV 88.0 D MCH 29.4 MCHC 33.4 RDW 14.5 Plt Count 187 MPV 8.0 Neut % (Auto) 82.9 H Lymph % (Auto) 9.5 L [place] % (Auto) 6.4 Eos % (Auto) 0.9 Baso % (Auto) 0.3 Neut # 11.9 H Lymph # 1.4 [place] # 0.9 H Eos # 0.1 Baso # 0.0 Neutrophils % (Manual) 85 H Lymphocytes % (Manual) 11 L Monocytes % (Manual) 3 Eosinophils % (Manual) 1 Nucleated RBC % 1 H Platelet Estimate Normal PT 12.2 INR 1.1 APTT Sodium Potassium Chloride Carbon Dioxide Anion Gap BUN Creatinine Est GFR ( Amer) Est GFR (Non-Af Amer) Random Glucose Calcium Total Bilirubin AST ALT Alkaline Phosphatase Total Protein Albumin Globulin Albumin/Globulin Ratio Stool Occult Blood Blood Type O POSITIVE Antibody Screen Negative 12/26/16 12/26/16 12/26/16 06:05 07:23 07:23 WBC 16.2 H RBC 2.70 L Hgb 7.9 L Hct 23.7 L MCV 87.7 MCH 29.2 MCHC 33.2 RDW 14.5 Plt Count 215 MPV 7.8 Neut % (Auto) Lymph % (Auto) [place] % (Auto) Eos % (Auto) Baso % (Auto) Neut # Lymph # [place] # Eos # Baso # Neutrophils % (Manual) Lymphocytes % (Manual) Monocytes % (Manual) Eosinophils % (Manual) Nucleated RBC % Platelet Estimate PT INR APTT 26 Sodium Potassium Chloride Carbon Dioxide Anion Gap BUN Creatinine Est GFR ( Amer) Est GFR (Non-Af Amer) Random Glucose Calcium Total Bilirubin AST ALT Alkaline Phosphatase Total Protein Albumin Globulin Albumin/Globulin Ratio Stool Occult Blood Positive H Blood Type Antibody Screen 12/26/16 07:23 WBC RBC Hgb Hct MCV MCH MCHC RDW Plt Count MPV Neut % (Auto) Lymph % (Auto) [place] % (Auto) Eos % (Auto) Baso % (Auto) Neut # Lymph # [place] # Eos # Baso # Neutrophils % (Manual) Lymphocytes % (Manual) Monocytes % (Manual) Eosinophils % (Manual) Nucleated RBC % Platelet Estimate PT INR APTT Sodium 134 Potassium 3.4 L Chloride 101 Carbon Dioxide 21 L Anion Gap 15 BUN 9 Creatinine 0.6 L Est GFR ( Amer) > 60 Est GFR (Non-Af Amer) > 60 Random Glucose 68 Calcium 7.5 L Total Bilirubin 0.7 AST 19 ALT 27 Alkaline Phosphatase 65 Total Protein 5.1 L Albumin 2.2 L Globulin 3.0 Albumin/Globulin Ratio 0.7 L Stool Occult Blood Blood Type Antibody Screen Assessment & Plan (1) Anemia Status: Acute Comment: Follow-up CBC and transfuse if necessary (2) Melena Status: Acute Comment: No active bleeding noted. Status post EGD. Continue Protonix and Carafate (3) History of COPD Status: Acute (4) History of abdominal hernia Status: Acute
[2016-12-26] MEDS ORDERED: Metoprolol 1 mg/ml Inj IVP ONE (22:19)
[2016-12-27] MEDS: Piperacillin/Tazobact 3.375 GM in Sodium Chloride 100 ML IVPB SCH ×4 (04:30→22:24)
[2016-12-27] MEDS: HYDROmorphone 0.5 mg/0.5 ml ISec IVP PRN ×4 (04:49→22:14)
[2016-12-27 06:57] LABS: BASO % 0.2 % (0.0-2.0); EOS # 0.2 K/uL (0.0-0.7); EOS % 1.3 % (0.0-4.0); HEMATOCRIT 30.8 % (34.0-47.0); LYMPH # 1.5 K/uL (1.0-4.3); LYMPH % 8.7 % (20.0-40.0); MEAN CELL VOLUME 88.7 fL (81.0-99.0); MEAN CORPUSCULAR HEMOGLOBIN 29.1 pg (27.0-31.0); MEAN CORPUSCULAR HGB CONC 32.8 g/dL (33.0-37.0); MEAN PLATELET VOLUME 8.3 fL (7.2-11.7); MONO # 1.1 K/uL (0.0-0.8); MONO % 6.8 % (0.0-10.0); PLATELET COUNT 263 K/uL (130-400); RED CELL DISTRIBUTION WIDTH 14.9 % (11.5-14.5); WHITE BLOOD COUNT 16.9 K/uL (4.8-10.8)
[2016-12-27 07:08] LABS: CHLORIDE 102 mmol/L (98-107); POTASSIUM 3.3 mmol/L (3.6-5.2); SODIUM 136 mmol/L (132-148)
[2016-12-27 07:10] LABS: AST/SGOT 21 U/L (14-36); BILIRUBIN,TOTAL 0.7 mg/dL (0.2-1.3); CARBON DIOXIDE 21 mmol/L (22-30); GFR AFRICAN-AMERICAN > 60
[2016-12-27 07:11] LABS: ALB/GLOB RATIO 0.7 (1.0-2.1); ALKALINE PHOSPHATASE 68 U/L (38-126); ALT/SGPT 27 U/L (9-52); BLOOD UREA NITROGEN 8 mg/dL (7-17); CALCIUM 7.1 mg/dl (8.6-10.4); GLUCOSE,RANDOM 56 mg/dL (65-105); PHOSPHOROUS 2.8 mg/dL (2.5-4.5); TOTAL PROTEIN 5.2 g/dL (6.3-8.3)
[2016-12-27 07:12] LABS: MAGNESIUM 1.6 mg/dL (1.6-2.3)
[2016-12-27] MEDS: Sucralfate 1 gm/10 ml Oral Susp UD PO SCH ×4 (07:35→22:17)
--- NOTE | 2016-12-27 07:59 | CP.PCM.PN ---
Subjective - Date & Time of Evaluation Date of Evaluation: 12/27/16 Time of Evaluation: 07:30 - Subjective Subjective: Pt reports some incisional abdominal pain. Had one dark bowel movement yesterday, none since. No N/V. Received 2 units pRBCs yesterday. Objective - Vital Signs/Intake and Output Vital Signs (last 24 hours): Temp Pulse Resp BP Pulse Ox 98.9 F 90 11 L 148/97 H 97 12/27/16 04:00 12/27/16 07:12 12/27/16 07:12 12/27/16 07:12 12/27/16 07:12 Intake and Output: 12/27/16 12/27/16 06:59 18:59 Intake Total 320 Output Total 601 Balance -281 - Medications Medications: Current Medications Acetaminophen (Tylenol 325mg Tab) 650 mg PO Q6 PRN PRN Reason: Fever >100.4 F Last Admin: 12/24/16 00:05 Dose: 650 mg Calcium/Vitamin D (Oscal-D 250 Mg-125 Units Tab) 1 tab PO DAILY [facility] Last Admin: 12/26/16 14:59 Dose: 1 tab Enoxaparin Sodium (Lovenox) 40 mg SC DAILY [facility] Last Admin: 12/24/16 11:01 Dose: 40 mg Furosemide (Lasix) 20 mg IVP DAILY [facility] Last Admin: 12/26/16 14:59 Dose: 20 mg Hydromorphone HCl (Dilaudid) 0.5 mg IVP Q4H PRN PRN Reason: Pain, moderate (4-7) Last Admin: 12/27/16 04:49 Dose: 0.5 mg Piperacillin Sod/Tazobactam (Sod 3.375 gm/ Sodium Chloride) 100 mls @ 200 mls/ hr IVPB Q6H [facility] Last Admin: 12/27/16 04:30 Dose: 200 mls/hr Pantoprazole Sodium 80 mg/ (Sodium Chloride) 100 mls @ 10 mls/hr IVPB .Q10H [facility] PRN Reason: 8 MG/HR Last Admin: 12/26/16 23:07 Dose: 10 mls/hr Nicotine (Nicoderm Cq) 1 patch TD DAILY [facility] Last Admin: 12/26/16 13:18 Dose: 1 patch Ondansetron HCl (Zofran Inj) 4 mg IVP Q6H PRN PRN Reason: Nausea/Vomiting Oxycodone/Acetaminophen (Percocet 5/325 Mg Tab) 1 tab PO Q4H PRN PRN Reason: Pain, moderate (4-7) Stop: 12/27/16 17:39 Last Admin: 12/26/16 04:04 Dose: 1 tab Potassium Chloride (K-Dur 20 Meq Er Tab) 40 meq PO DAILY [facility] Last Admin: 12/26/16 14:59 Dose: 40 meq Sucralfate (Carafate Oral Susp) 1 gm PO Q6 [facility] Last Admin: 12/27/16 07:35 Dose: 1 gm Zolpidem Tartrate (Ambien) 5 mg PO HS PRN PRN Reason: Insomnia Last Admin: 12/21/16 22:33 Dose: 5 mg - Labs Labs: 12/27/16 06:48 12/27/16 06:48 PT 12.2 SECONDS (9.7-12.2) 12/25/16 23:25 INR 1.1 12/25/16 23:25 APTT 26 SECONDS (21-34) 12/26/16 07:23 - GI/Abdominal Exam GI & Abdominal Exam: Soft Assessment and Plan - Assessment and Plan (Free Text) Assessment: 61 y/o female with multiple bariatirc surgeries n the past, no s/p incisional hernia repair and marginal ulcer. S/p 4 units pRBCs total with appropriate rise in H/H. Plan: Bleeding appears to have stopped. Would continue PPIs BID plus po liquid Carafate, pt educated on the importance of stopping smoking and stopping all NSAIDs. Pt educated about taking protein shakes. Would keep her on a liquid diet for several weeks (start with clears...advance to full liquids with protein shakes as tolerated in a few days.). No acute bariatric surgical intervention at this time (H/H now upto 30.8). Continue to hold Lovenox...Venodynesto be used for DVT prophylaxis. Pt should be up ambulating as soon as possible to help prevent DVT. Continue to monitor H/H.
[2016-12-27 08:19] LABS: EOSINOPHIL 1 % (0-4); NEUTROPHIL 85 % (50-75); TOTAL CELLS COUNTED 100
[2016-12-27] MEDS: Potassium Chloride 20 mEq ER Tab PO SCH (09:45)
[2016-12-27] MEDS: Calcium-Vit D 250 mg-125 Units Tab UD PO SCH (09:46)
[2016-12-27] MEDS: Pantoprazole 80 MG in Sodium Chloride 0.9% 100 ML IVPB SCH ×3 (10:30→22:17)
--- NOTE | 2016-12-27 11:03 | CP.PCM.PN ---
Subjective - Date & Time of Evaluation Date of Evaluation: 12/27/16 Time of Evaluation: 11:00 - Subjective Subjective: Patient denies having nausea and vomiting. She has pain around the umbilicus, which feels like incisional pain, and intermittent pain in the RUQ which feels more sharp. She has not had a bowel habit so far this morning. Objective - Vital Signs/Intake and Output Vital Signs (last 24 hours): Temp Pulse Resp BP Pulse Ox 98.9 F 90 11 L 140/98 H 97 12/27/16 04:00 12/27/16 07:12 12/27/16 07:12 12/27/16 10:16 12/27/16 07:12 Intake and Output: 12/27/16 12/27/16 06:59 18:59 Intake Total 320 10 Output Total 601 Balance -281 10 - Medications Medications: Current Medications Acetaminophen (Tylenol 325mg Tab) 650 mg PO Q6 PRN PRN Reason: Fever >100.4 F Last Admin: 12/24/16 00:05 Dose: 650 mg Calcium/Vitamin D (Oscal-D 250 Mg-125 Units Tab) 1 tab PO DAILY [facility] Last Admin: 12/27/16 09:46 Dose: Not Given Enoxaparin Sodium (Lovenox) 40 mg SC DAILY [facility] Last Admin: 12/24/16 11:01 Dose: 40 mg Furosemide (Lasix) 20 mg IVP DAILY [facility] Last Admin: 12/27/16 10:16 Dose: 20 mg Hydromorphone HCl (Dilaudid) 0.5 mg IVP Q4H PRN PRN Reason: Pain, moderate (4-7) Last Admin: 12/27/16 10:15 Dose: 0.5 mg Piperacillin Sod/Tazobactam (Sod 3.375 gm/ Sodium Chloride) 100 mls @ 200 mls/ hr IVPB Q6H [facility] Last Admin: 12/27/16 04:30 Dose: 200 mls/hr Pantoprazole Sodium 80 mg/ (Sodium Chloride) 100 mls @ 10 mls/hr IVPB .Q10H [facility] PRN Reason: 8 MG/HR Last Admin: 12/26/16 23:07 Dose: 10 mls/hr Dextrose (Dextrose 5% In Water) 500 mls @ 100 mls/hr IV .Q5H [facility] Stop: 12/27/16 14:59 Last Admin: 12/27/16 10:15 Dose: 100 mls/hr Nicotine (Nicoderm Cq) 1 patch TD DAILY [facility] Last Admin: 12/27/16 10:21 Dose: 1 patch Ondansetron HCl (Zofran Inj) 4 mg IVP Q6H PRN PRN Reason: Nausea/Vomiting Oxycodone/Acetaminophen (Percocet 5/325 Mg Tab) 1 tab PO Q4H PRN PRN Reason: Pain, moderate (4-7) Stop: 12/27/16 17:39 Last Admin: 12/26/16 04:04 Dose: 1 tab Potassium Chloride (K-Dur 20 Meq Er Tab) 40 meq PO DAILY [facility] Last Admin: 12/27/16 09:45 Dose: Not Given Sucralfate (Carafate Oral Susp) 1 gm PO Q6 [facility] Last Admin: 12/27/16 07:35 Dose: 1 gm Zolpidem Tartrate (Ambien) 5 mg PO HS PRN PRN Reason: Insomnia Last Admin: 12/21/16 22:33 Dose: 5 mg - Labs Labs: 12/27/16 06:48 12/27/16 06:48 PT 12.2 SECONDS (9.7-12.2) 12/25/16 23:25 INR 1.1 12/25/16 23:25 APTT 26 SECONDS (21-34) 12/26/16 07:23 - Constitutional Appears: No Acute Distress - Head Exam Head Exam: ATRAUMATIC, NORMOCEPHALIC - Eye Exam Eye Exam: EOMI, PERRL - Neck Exam Neck Exam: absent: Lymphadenopathy, Thyromegaly - Respiratory Exam Respiratory Exam: NORMAL BREATHING PATTERN. absent: Rales, Rhonchi, Wheezes - Cardiovascular Exam Cardiovascular Exam: REGULAR RHYTHM, +S1, +S2. absent: Gallop, Rubs, Murmur - GI/Abdominal Exam GI & Abdominal Exam: Distended, Firm, Tenderness, Normal Bowel Sounds. 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 The WBC count has increased from 13.1 post surgery to 16.9. The HGB increased from 7.9 to 10.[address] angiogram from 12/25/16 did not show signs of free perforation, but oral contrast was not administered. Will request Gastrografin UGI series. Consider repeat CT scan. NPO for now until the imaging studies have been completed. Patient will most likely need another procedure to remove the mesh and revise the bypass. Status: Acute
--- NOTE | 2016-12-27 14:04 | CP.PCM.PN ---
Subjective - Date & Time of Evaluation Date of Evaluation: 12/27/16 Time of Evaluation: 08:00 - Subjective Subjective: General Surgery Pt S&E, No further bloody BMs today. Patient not getting up from bed to walk. Refuses walking although encouraged multiple times. Minimal pain at incision site. Objective - Vital Signs/Intake and Output Vital Signs (last 24 hours): Temp Pulse Resp BP Pulse Ox 98.9 F 90 11 L 140/98 H 97 12/27/16 04:00 12/27/16 07:12 12/27/16 07:12 12/27/16 10:16 12/27/16 07:12 Intake and Output: 12/27/16 12/27/16 06:59 18:59 Intake Total 320 10 Output Total 601 Balance -281 10 - Medications Medications: Current Medications Acetaminophen (Tylenol 325mg Tab) 650 mg PO Q6 PRN PRN Reason: Fever >100.4 F Last Admin: 12/24/16 00:05 Dose: 650 mg Calcium/Vitamin D (Oscal-D 250 Mg-125 Units Tab) 1 tab PO DAILY [facility] Last Admin: 12/27/16 09:46 Dose: Not Given Enoxaparin Sodium (Lovenox) 40 mg SC DAILY [facility] Last Admin: 12/24/16 11:01 Dose: 40 mg Furosemide (Lasix) 20 mg IVP DAILY [facility] Last Admin: 12/27/16 10:16 Dose: 20 mg Hydromorphone HCl (Dilaudid) 0.5 mg IVP Q4H PRN PRN Reason: Pain, moderate (4-7) Last Admin: 12/27/16 10:15 Dose: 0.5 mg Piperacillin Sod/Tazobactam (Sod 3.375 gm/ Sodium Chloride) 100 mls @ 200 mls/ hr IVPB Q6H [facility] Last Admin: 12/27/16 04:30 Dose: 200 mls/hr Pantoprazole Sodium 80 mg/ (Sodium Chloride) 100 mls @ 10 mls/hr IVPB .Q10H [facility] PRN Reason: 8 MG/HR Last Admin: 12/26/16 23:07 Dose: 10 mls/hr Dextrose (Dextrose 5% In Water) 500 mls @ 100 mls/hr IV .Q5H [facility] Stop: 12/27/16 14:59 Last Admin: 12/27/16 10:15 Dose: 100 mls/hr Nicotine (Nicoderm Cq) 1 patch TD DAILY [facility] Last Admin: 12/27/16 10:21 Dose: 1 patch Ondansetron HCl (Zofran Inj) 4 mg IVP Q6H PRN PRN Reason: Nausea/Vomiting Oxycodone/Acetaminophen (Percocet 5/325 Mg Tab) 1 tab PO Q4H PRN PRN Reason: Pain, moderate (4-7) Stop: 12/27/16 17:39 Last Admin: 12/26/16 04:04 Dose: 1 tab Potassium Chloride (K-Dur 20 Meq Er Tab) 40 meq PO DAILY [facility] Last Admin: 12/27/16 09:45 Dose: Not Given Sucralfate (Carafate Oral Susp) 1 gm PO Q6 [facility] Last Admin: 12/27/16 07:35 Dose: 1 gm Zolpidem Tartrate (Ambien) 5 mg PO HS PRN PRN Reason: Insomnia Last Admin: 12/21/16 22:33 Dose: 5 mg - Labs Labs: 12/27/16 06:48 12/27/16 06:48 PT 12.2 SECONDS (9.7-12.2) 12/25/16 23:25 INR 1.1 12/25/16 23:25 APTT 26 SECONDS (21-34) 12/26/16 07:23 - Constitutional Appears: Non-toxic, No Acute Distress - Head Exam Head Exam: ATRAUMATIC, NORMOCEPHALIC - Respiratory Exam Respiratory Exam: NORMAL BREATHING PATTERN. absent: Respiratory Distress - GI/Abdominal Exam GI & Abdominal Exam: Guarding (mild), Soft, Tenderness (mild at icision). absent: Distended, Firm, Rigid Additional comments: incision C/D/I, cedric in place - Neurological Exam Neurological Exam: Alert, Awake, Oriented x3 - Skin Skin Exam: Dry, Warm Assessment and Plan - Assessment and Plan (Free Text) Assessment: 61F s/p incisional hernia repair POD6 Marginal Ulcer Plan: - Changed abd dressing -Monitor for bloody bowel movements -Encourage patient ambulation -Encourage incentive spirometer use D/W Dr. Dg Abdi PGY4
--- NOTE | 2016-12-27 20:08 | CP.PCM.PN ---
Subjective - Date & Time of Evaluation Date of Evaluation: 12/27/16 Time of Evaluation: 20:05 - Subjective Subjective: seen in icu moved her bowell black no fresh blood still has abd pain Objective - Vital Signs/Intake and Output Vital Signs (last 24 hours): Temp Pulse Resp BP Pulse Ox 98.8 F 98 H 21 151/99 H 91 L 12/27/16 16:00 12/27/16 19:40 12/27/16 18:30 12/27/16 13:12 12/27/16 10:12 Intake and Output: 12/27/16 12/28/16 18:59 06:59 Intake Total 810 Output Total 1450 Balance -640 - Medications Medications: Current Medications Acetaminophen (Tylenol 325mg Tab) 650 mg PO Q6 PRN PRN Reason: Fever >100.4 F Last Admin: 12/24/16 00:05 Dose: 650 mg Calcium/Vitamin D (Oscal-D 250 Mg-125 Units Tab) 1 tab PO DAILY [facility] Last Admin: 12/27/16 09:46 Dose: Not Given Enoxaparin Sodium (Lovenox) 40 mg SC DAILY [facility] Last Admin: 12/24/16 11:01 Dose: 40 mg Furosemide (Lasix) 20 mg IVP DAILY [facility] Last Admin: 12/27/16 10:16 Dose: 20 mg Hydromorphone HCl (Dilaudid) 0.5 mg IVP Q4H PRN PRN Reason: Pain, moderate (4-7) Last Admin: 12/27/16 15:47 Dose: 0.5 mg Piperacillin Sod/Tazobactam (Sod 3.375 gm/ Sodium Chloride) 100 mls @ 200 mls/ hr IVPB Q6H [facility] Last Admin: 12/27/16 15:48 Dose: 200 mls/hr Pantoprazole Sodium 80 mg/ (Sodium Chloride) 100 mls @ 10 mls/hr IVPB .Q10H [facility] PRN Reason: 8 MG/HR Last Admin: 12/27/16 15:50 Dose: Not Given Nicotine (Nicoderm Cq) 1 patch TD DAILY [facility] Last Admin: 12/27/16 10:21 Dose: 1 patch Ondansetron HCl (Zofran Inj) 4 mg IVP Q6H PRN PRN Reason: Nausea/Vomiting Potassium Chloride (K-Dur 20 Meq Er Tab) 40 meq PO DAILY [facility] Last Admin: 12/27/16 09:45 Dose: Not Given Sucralfate (Carafate Oral Susp) 1 gm PO Q6 [facility] Last Admin: 12/27/16 19:24 Dose: 1 gm Zolpidem Tartrate (Ambien) 5 mg PO HS PRN PRN Reason: Insomnia Last Admin: 12/21/16 22:33 Dose: 5 mg - Labs Labs: 12/27/16 06:48 12/27/16 06:48 PT 12.2 SECONDS (9.7-12.2) 12/25/16 23:25 INR 1.1 12/25/16 23:25 APTT 26 SECONDS (21-34) 12/26/16 07:23 - Head Exam Head Exam: NORMAL INSPECTION - Eye Exam Eye Exam: Normal appearance Pupil Exam: NORMAL ACCOMODATION - ENT Exam ENT Exam: Mucous Membranes Moist - Neck Exam Neck Exam: Full ROM - Respiratory Exam Respiratory Exam: NORMAL BREATHING PATTERN - Cardiovascular Exam Cardiovascular Exam: REGULAR RHYTHM - GI/Abdominal Exam GI & Abdominal Exam: Tenderness, Normal Bowel Sounds - Extremities Exam Extremities Exam: Full ROM, Normal Inspection - Back Exam Back Exam: NORMAL INSPECTION - Neurological Exam Neurological Exam: Normal Gait, Oriented x3 - Psychiatric Exam Psychiatric exam: Normal Mood - Skin Skin Exam: Pallor Assessment and Plan - Assessment and Plan (Free Text) Assessment: s/p ac ugi bleeding peptic ulcer Plan: continu as per orders
[2016-12-28] MEDS: Sucralfate 1 gm/10 ml Oral Susp UD PO SCH ×5 (00:03→23:09)
[2016-12-28] MEDS: Pantoprazole 80 MG in Sodium Chloride 0.9% 100 ML IVPB SCH ×5 (03:27→22:31)
[2016-12-28] MEDS: Piperacillin/Tazobact 3.375 GM in Sodium Chloride 100 ML IVPB SCH ×4 (05:27→22:33)
[2016-12-28] MEDS: HYDROmorphone 0.5 mg/0.5 ml ISec IVP PRN ×3 (08:24→20:15)
[2016-12-28] MEDS ORDERED: Iohexol 240 200 ML IJ ONE (09:01)
--- NOTE | 2016-12-28 11:06 | CP.PCM.PN ---
Subjective - Date & Time of Evaluation Date of Evaluation: 12/28/16 Time of Evaluation: 11:03 - Subjective Subjective: Patient had one black bowel movement last night, none this mornina. She denies having nausea or vomiting. She complains of mild incisional pain. Objective - Vital Signs/Intake and Output Vital Signs (last 24 hours): Temp Pulse Resp BP Pulse Ox 98 F 88 21 138/99 H 91 L 12/28/16 04:00 12/28/16 09:10 12/27/16 18:30 12/28/16 08:48 12/27/16 10:12 Intake and Output: 12/28/16 12/28/16 06:59 18:59 Intake Total 320 Balance 320 - Medications Medications: Current Medications Acetaminophen (Tylenol 325mg Tab) 650 mg PO Q6 PRN PRN Reason: Fever >100.4 F Last Admin: 12/24/16 00:05 Dose: 650 mg Calcium/Vitamin D (Oscal-D 250 Mg-125 Units Tab) 1 tab PO DAILY [facility] Last Admin: 12/27/16 09:46 Dose: Not Given Enoxaparin Sodium (Lovenox) 40 mg SC DAILY [facility] Last Admin: 12/24/16 11:01 Dose: 40 mg Furosemide (Lasix) 20 mg IVP DAILY [facility] Last Admin: 12/27/16 10:16 Dose: 20 mg Hydromorphone HCl (Dilaudid) 0.5 mg IVP Q4H PRN PRN Reason: Pain, moderate (4-7) Last Admin: 12/28/16 08:24 Dose: 0.5 mg Piperacillin Sod/Tazobactam (Sod 3.375 gm/ Sodium Chloride) 100 mls @ 200 mls/ hr IVPB Q6H [facility] Last Admin: 12/28/16 05:27 Dose: 200 mls/hr Pantoprazole Sodium 80 mg/ (Sodium Chloride) 100 mls @ 10 mls/hr IVPB .Q10H [facility] PRN Reason: 8 MG/HR Last Admin: 12/28/16 08:39 Dose: 10 mls/hr Nicotine (Nicoderm Cq) 1 patch TD DAILY [facility] Last Admin: 12/27/16 10:21 Dose: 1 patch Ondansetron HCl (Zofran Inj) 4 mg IVP Q6H PRN PRN Reason: Nausea/Vomiting Potassium Chloride (K-Dur 20 Meq Er Tab) 40 meq PO DAILY [facility] Last Admin: 12/27/16 09:45 Dose: Not Given Sucralfate (Carafate Oral Susp) 1 gm PO Q6 [facility] Last Admin: 12/28/16 05:28 Dose: 1 gm Zolpidem Tartrate (Ambien) 5 mg PO HS PRN PRN Reason: Insomnia Last Admin: 12/21/16 22:33 Dose: 5 mg - Labs Labs: 12/27/16 06:48 12/27/16 06:48 PT 12.2 SECONDS (9.7-12.2) 12/25/16 23:25 INR 1.1 12/25/16 23:25 APTT 26 SECONDS (21-34) 12/26/16 07:23 - Constitutional Appears: No Acute Distress - Head Exam Head Exam: ATRAUMATIC, NORMOCEPHALIC - Eye Exam Eye Exam: EOMI, PERRL - Neck Exam Neck Exam: absent: Lymphadenopathy, Thyromegaly - Respiratory Exam Respiratory Exam: NORMAL BREATHING PATTERN. absent: Rales, Rhonchi, Wheezes - Cardiovascular Exam Cardiovascular Exam: REGULAR RHYTHM, +S1, +S2. absent: Gallop, Rubs, Murmur - GI/Abdominal Exam GI & Abdominal Exam: Distended, Tenderness, Normal Bowel Sounds. absent: Mass, Organomegaly - Rectal Exam Rectal Exam: Deferred - Extremities Exam Extremities Exam: absent: Calf Tenderness Assessment and Plan (1) Melena Assessment & Plan: Patient had another episode of melena yesterday, and HGB was 10.1. CBC from this morning is still pending. UGI series shows communication between gastric pouch and stomach, but no definite leak. CT scan was recommended and has been ordered. Status: Acute
[2016-12-28] MEDS: Calcium-Vit D 250 mg-125 Units Tab UD PO SCH (11:58)
[2016-12-28] MEDS: Potassium Chloride 20 mEq ER Tab PO SCH (12:01)
--- NOTE | 2016-12-28 13:05 | CT ---
PROCEDURE: CT scan abdomen pelvis 12/28/2016 HISTORY: Possible contrast leak on UGI series COMPARISON: Comparison made with concurrent GI series than prior CT scan abdomen pelvis dated 11/06/2016. TECHNIQUE: Contiguous helical/transaxial images of the abdomen and pelvis performed without oral or intravenous contrast material. Note that oral water-soluble oral contrast material present from immediate prior to upper GI series. Sagittal and coronal reformats were generated. Radiation do jeannette se: Total exam DLP = 1044.64 mGy-cm. This CT exam was performed using one or more of the following dose reduction techniques: Automated exposure control, adjustment of the mA and/or kV according to patient size, and/or use of iterative reconstruction technique. FINDINGS: Small bilateral effusions. LOWER THORAX: Small bilateral effusions and suspected minimal bibasilar atelectasis. . The linear scarring right lung base also felt be present. Lung worley are otherwise clear. No evidence of basilar pneumothorax. Rule pleural and clear LIVER: Liver exhibits normal size measuring approximately 20 cm in CC dimension. Re- demonstrated are there is a small elliptical shaped focus low-attenuation along the right lateral margin right lobe measuring 2.9 x 1.3 cm consistent with cyst. . Two additional small lesions in the right lobe and left lobe not well seen on this study. . GALLBLADDER AND BILE DUCTS: Status post cholecystectomy PANCREAS: Pancreas is not well delineated due to the presence of opaque contrast material within bowel resulting in streak and beam hardening artifact however the pancreas appears slightly atrophic and fatty replaced. SPLEEN: Spleen exhibits normal size and attenuation pattern without mass collection or calcification so far as can be seen. ADRENALS: No adrenal lesions. KIDNEYS AND URETERS: Previously noted small renal calculi poorly seen due to excretion of water-soluble contrast material likely of being absorbed from bowel. Small rounded low-attenuation focus anterior lateral aspect midpole right kidney probably represents cyst though Hounsfield units in the upper 20s on may be secondary to volume averaging artifact of adjacent contrast material. BLADDER: Urinary bladder is poorly delineated due to significant streak and beam hardening artifact arising from bilateral total hip replacements. REPRODUCTIVE: Probable prior hysterectomy however due to significant streak and beam hardening artifact arising from total hip replacements evaluation of the pelvis is limited APPENDIX: Appendix is not definitively seen. BOWEL: Re- demonstrated is a gastric bypass surgery (x2 as per history) which results in distortion of anatomy. There appears to be a tiny hiatal hernia. There is a opacification of the excluded portion of the stomach. Dorsal to the stomach is a gastro- jejunostomy which crosses the right. There is a small elliptical shaped contrast collection within the left upper quadrant of the abdomen disc anterior to the spleen are which appears to arise from the gastrojejunostomy that due of uncertain etiology and could represent a portion of the stomach however a contained leak cannot be excluded. Clinical correlation recommended. A jejunostomyostomy in the left the lower abdomen again noted though this demonstrates less wall thickening when compared to the prior study. No evidence of extravasated contrast material into the peritoneal cavity PERITONEUM: As above. No free intraperitoneal air seen. . Metallic skin closure cedric from recent ventral wall hernia repair. LYMPH NODES: Unremarkable. No enlarged lymph nodes. VASCULATURE: Unremarkable. No aortic aneurysm. BONES: Mild multilevel degenerative spondylosis of the lower thoracic and lumbar spine. OTHER FINDINGS: None. IMPRESSION: Re- demonstrated is a gastric bypass surgery (x2 as per history) which results in distortion of anatomy. There appears to be a tiny hiatal hernia. There is a opacification of the excluded portion of the stomach. Dorsal to the stomach is a gastro- jejunostomy which crosses the right. There is a small elliptical shaped contrast collection within the left upper quadrant of the abdomen disc anterior to the spleen are which appears to arise from the gastrojejunostomy that due of uncertain etiology and could represent a portion of the stomach however a contained leak cannot be excluded. Clinical correlation recommended. A jejunostomyostomy in the left the lower abdomen again noted though this demonstrates less wall thickening when compared to the prior study. There is no evidence of marsha contrast extravasation into the peritoneal cavity These findings were discussed with Dr. Waterman at approximately 12:55 a.m. with written down and read back verification.
--- NOTE | 2016-12-28 13:23 | CP.PCM.PN ---
Subjective - Date & Time of Evaluation Date of Evaluation: 12/28/16 Time of Evaluation: 07:30 - Subjective Subjective: Patient seen and examined at bedside this morning. Reports latest bloody bowel movement was yesterday afternoon. Denies having BM today, but is passing flatus. Patient reports she was out of bed once yesterday. Reminded patient the importance of moving/ambulating for DVT ppx. Patient responded she would take her time but agreed to get out of bed to chair. Slight tenderness along left abdomen. Objective - Vital Signs/Intake and Output Vital Signs (last 24 hours): Temp Pulse Resp BP Pulse Ox 98.6 F 88 21 134/86 91 L 12/28/16 12:00 12/28/16 09:10 12/27/16 18:30 12/28/16 12:03 12/27/16 10:12 Intake and Output: 12/28/16 12/28/16 06:59 18:59 Intake Total 320 Balance 320 - Medications Medications: Current Medications Acetaminophen (Tylenol 325mg Tab) 650 mg PO Q6 PRN PRN Reason: Fever >100.4 F Last Admin: 12/24/16 00:05 Dose: 650 mg Calcium/Vitamin D (Oscal-D 250 Mg-125 Units Tab) 1 tab PO DAILY [facility] Last Admin: 12/28/16 11:58 Dose: 1 tab Enoxaparin Sodium (Lovenox) 40 mg SC DAILY [facility] Last Admin: 12/24/16 11:01 Dose: 40 mg Furosemide (Lasix) 20 mg IVP DAILY [facility] Last Admin: 12/28/16 12:00 Dose: Not Given Hydromorphone HCl (Dilaudid) 0.5 mg IVP Q4H PRN PRN Reason: Pain, moderate (4-7) Last Admin: 12/28/16 08:24 Dose: 0.5 mg Piperacillin Sod/Tazobactam (Sod 3.375 gm/ Sodium Chloride) 100 mls @ 200 mls/ hr IVPB Q6H [facility] Last Admin: 12/28/16 12:04 Dose: 200 mls/hr Pantoprazole Sodium 80 mg/ (Sodium Chloride) 100 mls @ 10 mls/hr IVPB .Q10H [facility] PRN Reason: 8 MG/HR Last Admin: 12/28/16 12:00 Dose: Not Given Nicotine (Nicoderm Cq) 1 patch TD DAILY [facility] Last Admin: 12/28/16 12:04 Dose: 1 patch Ondansetron HCl (Zofran Inj) 4 mg IVP Q6H PRN PRN Reason: Nausea/Vomiting Potassium Chloride (K-Dur 20 Meq Er Tab) 40 meq PO DAILY [facility] Last Admin: 12/28/16 12:01 Dose: 40 meq Sucralfate (Carafate Oral Susp) 1 gm PO Q6 [facility] Last Admin: 12/28/16 12:04 Dose: 1 gm Zolpidem Tartrate (Ambien) 5 mg PO HS PRN PRN Reason: Insomnia Last Admin: 12/21/16 22:33 Dose: 5 mg - Labs Labs: 12/27/16 06:48 12/27/16 06:48 PT 12.2 SECONDS (9.7-12.2) 12/25/16 23:25 INR 1.1 12/25/16 23:25 APTT 26 SECONDS (21-34) 12/26/16 07:23 - Constitutional Appears: No Acute Distress - Head Exam Head Exam: NORMOCEPHALIC - Eye Exam Eye Exam: Normal appearance - ENT Exam ENT Exam: Mucous Membranes Moist - Cardiovascular Exam Cardiovascular Exam: +S1, +S2 - GI/Abdominal Exam GI & Abdominal Exam: Soft, Tenderness - Neurological Exam Neurological Exam: Alert, Awake, Oriented x3 - Psychiatric Exam Psychiatric exam: Normal Mood - Skin Skin Exam: Dry, Intact, Warm Assessment and Plan - Assessment and Plan (Free Text) Assessment: 61F s/p incisional hernia repair POD7 found to have marginal ulcer on EGD -Monitor for bloody bowel movements -C/w abx -Encourage patient ambulation -Encourage incentive spirometer use -Bariatric surgery recs appreciated -C/w carafate and PPI D/W Dr. Dg Merida PGY-2
--- NOTE | 2016-12-28 17:20 | CP.PCM.PN ---
Subjective - Date & Time of Evaluation Date of Evaluation: 12/28/16 Time of Evaluation: 17:17 - Subjective Subjective: pt seen and examined still in icu no new bleeding still has abd pain Objective - Vital Signs/Intake and Output Vital Signs (last 24 hours): Temp Pulse Resp BP Pulse Ox 98.5 F 88 21 134/86 91 L 12/28/16 16:00 12/28/16 09:10 12/27/16 18:30 12/28/16 12:03 12/27/16 10:12 Intake and Output: 12/28/16 12/28/16 06:59 18:59 Intake Total 320 Balance 320 - Medications Medications: Current Medications Acetaminophen (Tylenol 325mg Tab) 650 mg PO Q6 PRN PRN Reason: Fever >100.4 F Last Admin: 12/24/16 00:05 Dose: 650 mg Calcium/Vitamin D (Oscal-D 250 Mg-125 Units Tab) 1 tab PO DAILY [facility] Last Admin: 12/28/16 11:58 Dose: 1 tab Enoxaparin Sodium (Lovenox) 40 mg SC DAILY [facility] Last Admin: 12/24/16 11:01 Dose: 40 mg Furosemide (Lasix) 20 mg IVP DAILY [facility] Last Admin: 12/28/16 12:00 Dose: Not Given Hydromorphone HCl (Dilaudid) 0.5 mg IVP Q4H PRN PRN Reason: Pain, moderate (4-7) Last Admin: 12/28/16 15:20 Dose: 0.5 mg Piperacillin Sod/Tazobactam (Sod 3.375 gm/ Sodium Chloride) 100 mls @ 200 mls/ hr IVPB Q6H [facility] Last Admin: 12/28/16 12:04 Dose: 200 mls/hr Pantoprazole Sodium 80 mg/ (Sodium Chloride) 100 mls @ 10 mls/hr IVPB .Q10H [facility] PRN Reason: 8 MG/HR Last Admin: 12/28/16 12:00 Dose: Not Given Nicotine (Nicoderm Cq) 1 patch TD DAILY [facility] Last Admin: 12/28/16 12:04 Dose: 1 patch Ondansetron HCl (Zofran Inj) 4 mg IVP Q6H PRN PRN Reason: Nausea/Vomiting Potassium Chloride (K-Dur 20 Meq Er Tab) 40 meq PO DAILY [facility] Last Admin: 12/28/16 12:01 Dose: 40 meq Sucralfate (Carafate Oral Susp) 1 gm PO Q6 [facility] Last Admin: 12/28/16 12:04 Dose: 1 gm Zolpidem Tartrate (Ambien) 5 mg PO HS PRN PRN Reason: Insomnia Last Admin: 12/21/16 22:33 Dose: 5 mg - Labs Labs: 12/27/16 06:48 12/27/16 06:48 PT 12.2 SECONDS (9.7-12.2) 12/25/16 23:25 INR 1.1 12/25/16 23:25 APTT 26 SECONDS (21-34) 12/26/16 07:23 - Constitutional Appears: Non-toxic - Head Exam Head Exam: NORMAL INSPECTION - Eye Exam Eye Exam: Normal appearance Pupil Exam: NORMAL ACCOMODATION - ENT Exam ENT Exam: Mucous Membranes Moist - Neck Exam Neck Exam: Full ROM - Respiratory Exam Respiratory Exam: Clear to Ausculation Bilateral - Cardiovascular Exam Cardiovascular Exam: REGULAR RHYTHM - GI/Abdominal Exam GI & Abdominal Exam: Tenderness, Hypoactive Bowel Sounds - Extremities Exam Extremities Exam: Normal Inspection - Back Exam Back Exam: NORMAL INSPECTION - Neurological Exam Neurological Exam: Alert, Normal Gait, Oriented x3 - Psychiatric Exam Psychiatric exam: Normal Mood - Skin Skin Exam: Normal Color, Pallor Assessment and Plan - Assessment and Plan (Free Text) Assessment: ugi bleeding s/p surgery aneamia cont as per orders
[2016-12-29] MEDS: Piperacillin/Tazobact 3.375 GM in Sodium Chloride 100 ML IVPB SCH ×4 (04:42→21:50)
[2016-12-29] MEDS: Sucralfate 1 gm/10 ml Oral Susp UD PO SCH ×3 (06:06→17:30)
[2016-12-29] MEDS: HYDROmorphone 0.5 mg/0.5 ml ISec IVP PRN ×2 (06:51→14:20)
[2016-12-29] MEDS: Pantoprazole 80 MG in Sodium Chloride 0.9% 100 ML IVPB SCH (06:53)
[2016-12-29 09:24] LABS: MEAN CORPUSCULAR HEMOGLOBIN 28.8 pg (27.0-31.0); MEAN CORPUSCULAR HGB CONC 32.7 g/dL (33.0-37.0); RED CELL DISTRIBUTION WIDTH 14.6 % (11.5-14.5); WHITE BLOOD COUNT 18.4 K/uL (4.8-10.8)
[2016-12-29 09:46] LABS: CHLORIDE 100 mmol/L (98-107); POTASSIUM 3.1 mmol/L (3.6-5.2); SODIUM 135 mmol/L (132-148)
[2016-12-29 09:48] LABS: GFR AFRICAN-AMERICAN > 60
[2016-12-29 09:49] LABS: ALB/GLOB RATIO 0.7 (1.0-2.1); ALKALINE PHOSPHATASE 82 U/L (38-126); ALT/SGPT 25 U/L (9-52); AST/SGOT 20 U/L (14-36); BILIRUBIN,TOTAL 0.7 mg/dL (0.2-1.3); BLOOD UREA NITROGEN 6 mg/dL (7-17); CARBON DIOXIDE 27 mmol/L (22-30); GLUCOSE,RANDOM 127 mg/dL (65-105); TOTAL PROTEIN 6.2 g/dL (6.3-8.3)
[2016-12-29 09:50] LABS: CALCIUM 7.8 mg/dl (8.6-10.4)
[2016-12-29] MEDS ORDERED: Potassium Chloride 20 mEq ER Tab PO STA (10:03)
--- NOTE | 2016-12-29 10:04 | CP.PCM.PN ---
Subjective - Date & Time of Evaluation Date of Evaluation: 12/29/16 Time of Evaluation: 10:01 - Subjective Subjective: ptseen and examined still in icu very anxious worry no bowell movements yet today Objective - Vital Signs/Intake and Output Vital Signs (last 24 hours): Temp Pulse Resp BP Pulse Ox 97.6 F 97 H 18 144/90 98 12/29/16 08:00 12/28/16 23:40 12/28/16 23:40 12/29/16 06:59 12/28/16 23:40 Intake and Output: 12/29/16 12/29/16 06:59 18:59 Intake Total 720 Balance 720 - Medications Medications: Current Medications Acetaminophen (Tylenol 325mg Tab) 650 mg PO Q6 PRN PRN Reason: Fever >100.4 F Last Admin: 12/24/16 00:05 Dose: 650 mg Alprazolam (Xanax) 0.5 mg PO STAT [facility] Stop: 12/29/16 10:00 Calcium/Vitamin D (Oscal-D 250 Mg-125 Units Tab) 1 tab PO DAILY [facility] Last Admin: 12/28/16 11:58 Dose: 1 tab Enoxaparin Sodium (Lovenox) 40 mg SC DAILY [facility] Last Admin: 12/24/16 11:01 Dose: 40 mg Furosemide (Lasix) 20 mg IVP DAILY [facility] Last Admin: 12/28/16 12:00 Dose: Not Given Hydromorphone HCl (Dilaudid) 0.5 mg IVP Q4H PRN PRN Reason: Pain, moderate (4-7) Last Admin: 12/29/16 06:51 Dose: 0.5 mg Piperacillin Sod/Tazobactam (Sod 3.375 gm/ Sodium Chloride) 100 mls @ 200 mls/ hr IVPB Q6H [facility] Last Admin: 12/29/16 04:42 Dose: 200 mls/hr Pantoprazole Sodium 80 mg/ (Sodium Chloride) 100 mls @ 10 mls/hr IVPB .Q10H [facility] PRN Reason: 8 MG/HR Last Admin: 12/29/16 06:53 Dose: 10 mls/hr Nicotine (Nicoderm Cq) 1 patch TD DAILY [facility] Last Admin: 12/28/16 12:04 Dose: 1 patch Ondansetron HCl (Zofran Inj) 4 mg IVP Q6H PRN PRN Reason: Nausea/Vomiting Potassium Chloride (K-Dur 20 Meq Er Tab) 40 meq PO STAT [facility] Stop: 12/29/16 09:53 Sucralfate (Carafate Oral Susp) 1 gm PO Q6 [facility] Last Admin: 12/29/16 06:06 Dose: 1 gm Zolpidem Tartrate (Ambien) 5 mg PO HS PRN PRN Reason: Insomnia Last Admin: 12/28/16 23:09 Dose: 5 mg - Labs Labs: 12/29/16 09:21 12/29/16 09:34 PT 12.2 SECONDS (9.7-12.2) 12/25/16 23:25 INR 1.1 12/25/16 23:25 APTT 26 SECONDS (21-34) 12/26/16 07:23 - Constitutional Appears: Non-toxic - Head Exam Head Exam: NORMAL INSPECTION - Eye Exam Eye Exam: Normal appearance Pupil Exam: NORMAL ACCOMODATION - ENT Exam ENT Exam: Mucous Membranes Moist - Neck Exam Neck Exam: Normal Inspection - Respiratory Exam Respiratory Exam: Clear to Ausculation Bilateral - Cardiovascular Exam Cardiovascular Exam: REGULAR RHYTHM - GI/Abdominal Exam GI & Abdominal Exam: Tenderness - Extremities Exam Extremities Exam: Full ROM - Back Exam Back Exam: NORMAL INSPECTION - Neurological Exam Neurological Exam: Normal Gait - Psychiatric Exam Psychiatric exam: Anxious - Skin Skin Exam: Pallor Assessment and Plan - Assessment and Plan (Free Text) Assessment: s/p ugi bleeding aneamia anexiety abd discomfort Plan: as per orders
[2016-12-29] MEDS: Calcium-Vit D 250 mg-125 Units Tab UD PO SCH (10:10)
--- NOTE | 2016-12-29 10:23 | RAD ---
HISTORY: r/o pneumonia COMPARISON: Chest radiographs 12/23/2016 FINDINGS: LUNGS: Prior limited atelectasis or trace infiltrate at the right base is not identified suggesting resolution. No infiltrate is seen at the left base and there is no pleural effusion or pneumothorax bilaterally. PLEURA: As per above CARDIOVASCULAR: Normal. OSSEOUS STRUCTURES: No significant abnormalities. VISUALIZED UPPER ABDOMEN: Normal. OTHER FINDINGS: None. IMPRESSION: Apparent resolution of right basilar limited, patchy density with no acute infiltrate or pleural effusion identified at this time.
--- NOTE | 2016-12-29 13:06 | CP.PCM.PN ---
Subjective - Date & Time of Evaluation Date of Evaluation: 12/29/16 Time of Evaluation: 07:30 - Subjective Subjective: Pt seen and examined at bedside. Pt states she got out of bed yesterday and will do so again today. Pt continues to have diarrhea, but states it's no longer bloody or dark. Pt is tolerating bariatric diet. Pt states her pain is well controlled. Pt denies n/v, fever, chills, cp, palpitations, dysuria and SOB. Objective - Vital Signs/Intake and Output Vital Signs (last 24 hours): Temp Pulse Resp BP Pulse Ox 97.6 F 97 H 18 135/93 H 98 12/29/16 08:00 12/28/16 23:40 12/28/16 23:40 12/29/16 10:10 12/28/16 23:40 Intake and Output: 12/29/16 12/29/16 06:59 18:59 Intake Total 720 Balance 720 - Medications Medications: Current Medications Acetaminophen (Tylenol 325mg Tab) 650 mg PO Q6 PRN PRN Reason: Fever >100.4 F Last Admin: 12/24/16 00:05 Dose: 650 mg Calcium/Vitamin D (Oscal-D 250 Mg-125 Units Tab) 1 tab PO DAILY [facility] Last Admin: 12/29/16 10:10 Dose: 1 tab Enoxaparin Sodium (Lovenox) 40 mg SC DAILY [facility] Last Admin: 12/24/16 11:01 Dose: 40 mg Furosemide (Lasix) 20 mg IVP DAILY [facility] Last Admin: 12/29/16 10:10 Dose: 20 mg Hydromorphone HCl (Dilaudid) 0.5 mg IVP Q4H PRN PRN Reason: Pain, moderate (4-7) Last Admin: 12/29/16 06:51 Dose: 0.5 mg Piperacillin Sod/Tazobactam (Sod 3.375 gm/ Sodium Chloride) 100 mls @ 200 mls/ hr IVPB Q6H [facility] Last Admin: 12/29/16 10:48 Dose: 200 mls/hr Pantoprazole Sodium 80 mg/ (Sodium Chloride) 100 mls @ 10 mls/hr IVPB .Q10H JOSE PRN Reason: 8 MG/HR Last Admin: 12/29/16 06:53 Dose: 10 mls/hr Nicotine (Nicoderm Cq) 1 patch TD DAILY [facility] Last Admin: 12/29/16 10:10 Dose: 1 patch Ondansetron HCl (Zofran Inj) 4 mg IVP Q6H PRN PRN Reason: Nausea/Vomiting Sucralfate (Carafate Oral Susp) 1 gm PO Q6 [facility] Last Admin: 12/29/16 06:06 Dose: 1 gm Zolpidem Tartrate (Ambien) 5 mg PO HS PRN PRN Reason: Insomnia Last Admin: 12/28/16 23:09 Dose: 5 mg - Labs Labs: 12/29/16 09:21 12/29/16 09:34 PT 12.2 SECONDS (9.7-12.2) 12/25/16 23:25 INR 1.1 12/25/16 23:25 APTT 26 SECONDS (21-34) 12/26/16 07:23 - Constitutional Appears: No Acute Distress - Head Exam Head Exam: NORMOCEPHALIC - Eye Exam Eye Exam: Normal appearance - ENT Exam ENT Exam: Mucous Membranes Moist - Respiratory Exam Respiratory Exam: NORMAL BREATHING PATTERN - Cardiovascular Exam Cardiovascular Exam: +S1, +S2 - GI/Abdominal Exam GI & Abdominal Exam: Soft, Tenderness. absent: Distended, Firm, Rigid, Rebound Additional comments: Abdominal incision clean, dry and intact. - Neurological Exam Neurological Exam: Alert, Awake, Oriented x3 - Psychiatric Exam Psychiatric exam: Normal Mood - Skin Skin Exam: Normal Color, Warm Assessment and Plan - Assessment and Plan (Free Text) Assessment: 61 y.o. female status post ventral hernia repair POD 8: f/u morning labs f/u CXR trend WBC monitor H&H monitor bm's encourage ambulation encourage incentive spirometer use full liquid diet with protein supplementation as per bariatric surgeon recommendation Further rec's per Dr. gD Merida PGY-2
[2016-12-29 16:42] VITALS: RESP 20
--- NOTE | 2016-12-29 17:29 | CP.PCM.PN ---
Subjective - Date & Time of Evaluation Date of Evaluation: 12/29/16 Time of Evaluation: 17:26 - Subjective Subjective: Patient reports that the incisional pain is unchanged. She denies having nausea , vomiting. She had three loose stools today. Objective - Vital Signs/Intake and Output Vital Signs (last 24 hours): Temp Pulse Resp BP Pulse Ox 98.4 F 101 H 20 138/98 H 100 12/29/16 15:00 12/29/16 15:00 12/29/16 15:00 12/29/16 15:00 12/29/16 15:00 Intake and Output: 12/29/16 12/29/16 06:59 18:59 Intake Total 720 Balance 720 - Medications Medications: Current Medications Acetaminophen (Tylenol 325mg Tab) 650 mg PO Q6 PRN PRN Reason: Fever >100.4 F Last Admin: 12/24/16 00:05 Dose: 650 mg Calcium/Vitamin D (Oscal-D 250 Mg-125 Units Tab) 1 tab PO DAILY [facility] Last Admin: 12/29/16 10:10 Dose: 1 tab Enoxaparin Sodium (Lovenox) 40 mg SC DAILY [facility] Last Admin: 12/24/16 11:01 Dose: 40 mg Furosemide (Lasix) 20 mg IVP DAILY [facility] Last Admin: 12/29/16 10:10 Dose: 20 mg Hydromorphone HCl (Dilaudid) 0.5 mg IVP Q4H PRN PRN Reason: Pain, moderate (4-7) Last Admin: 12/29/16 14:20 Dose: 0.5 mg Piperacillin Sod/Tazobactam (Sod 3.375 gm/ Sodium Chloride) 100 mls @ 200 mls/ hr IVPB Q6H [facility] Last Admin: 12/29/16 16:36 Dose: 200 mls/hr Nicotine (Nicoderm Cq) 1 patch TD DAILY [facility] Last Admin: 12/29/16 10:10 Dose: 1 patch Ondansetron HCl (Zofran Inj) 4 mg IVP Q6H PRN PRN Reason: Nausea/Vomiting Pantoprazole Sodium (Protonix Ec Tab) 20 mg PO BID [facility] Sucralfate (Carafate Oral Susp) 1 gm PO Q6 [facility] Last Admin: 12/29/16 14:16 Dose: 1 gm Zolpidem Tartrate (Ambien) 5 mg PO HS PRN PRN Reason: Insomnia Last Admin: 12/28/16 23:09 Dose: 5 mg - Labs Labs: 12/29/16 09:21 12/29/16 09:34 PT 12.2 SECONDS (9.7-12.2) 12/25/16 23:25 INR 1.1 12/25/16 23:25 APTT 26 SECONDS (21-34) 12/26/16 07:23 - Constitutional Appears: No Acute Distress - Head Exam Head Exam: ATRAUMATIC, NORMOCEPHALIC - Eye Exam Eye Exam: EOMI, PERRL - Neck Exam Neck Exam: absent: Lymphadenopathy, Thyromegaly - Cardiovascular Exam Cardiovascular Exam: REGULAR RHYTHM, +S1, +S2. absent: Gallop, Rubs, Murmur - GI/Abdominal Exam GI & Abdominal Exam: Distended, Firm, Tenderness, Normal Bowel Sounds. absent: Organomegaly - Rectal Exam Rectal Exam: Deferred - Extremities Exam Extremities Exam: absent: Calf Tenderness, Pedal Edema Assessment and Plan (1) Melena Assessment & Plan: Hemoglobin is up to 11.1 and there is no active bleeding. The WBC count remains elevated. Will switch protonix to oral. Stool culture for Salmonella is pending. Status: Acute
[2016-12-29] MEDS: Pantoprazole 20 mg EC Tab PO SCH (21:47)
[2016-12-30] MEDS: Sucralfate 1 gm/10 ml Oral Susp UD PO SCH ×5 (00:14→17:52)
[2016-12-30] MEDS: HYDROmorphone 0.5 mg/0.5 ml ISec IVP PRN (02:18)
[2016-12-30] MEDS: Piperacillin/Tazobact 3.375 GM in Sodium Chloride 100 ML IVPB SCH ×2 (04:17→11:40)
[2016-12-30 08:10] LABS: CHLORIDE 104 mmol/L (98-107); POTASSIUM 3.2 mmol/L (3.6-5.2); SODIUM 138 mmol/L (132-148)
[2016-12-30 08:13] LABS: GFR AFRICAN-AMERICAN > 60
[2016-12-30 08:14] LABS: BLOOD UREA NITROGEN 6 mg/dL (7-17); CALCIUM 7.7 mg/dl (8.6-10.4); CARBON DIOXIDE 26 mmol/L (22-30); GLUCOSE,RANDOM 82 mg/dL (65-105)
--- NOTE | 2016-12-30 08:36 | CP.PCM.PN ---
Subjective - Date & Time of Evaluation Date of Evaluation: 12/30/16 Time of Evaluation: 06:40 - Subjective Subjective: Patient seen and examined. Reports she is passing flatus. Abdominal pain is improving. Surgical incision is c/d/i. Tolerating diet. Denies any bloody bowel movements. Patient is getting out of bed to commode. Objective - Vital Signs/Intake and Output Vital Signs (last 24 hours): Temp Pulse Resp BP Pulse Ox 98.2 F 97 H 20 124/87 98 12/30/16 00:00 12/30/16 00:00 12/30/16 00:00 12/30/16 00:00 12/30/16 00:00 - Medications Medications: Current Medications Acetaminophen (Tylenol 325mg Tab) 650 mg PO Q6 PRN PRN Reason: Fever >100.4 F Last Admin: 12/24/16 00:05 Dose: 650 mg Calcium/Vitamin D (Oscal-D 250 Mg-125 Units Tab) 1 tab PO DAILY [facility] Last Admin: 12/29/16 10:10 Dose: 1 tab Enoxaparin Sodium (Lovenox) 40 mg SC DAILY [facility] Last Admin: 12/24/16 11:01 Dose: 40 mg Furosemide (Lasix) 20 mg IVP DAILY [facility] Last Admin: 12/29/16 10:10 Dose: 20 mg Hydromorphone HCl (Dilaudid) 0.5 mg IVP Q4H PRN PRN Reason: Pain, moderate (4-7) Last Admin: 12/30/16 02:18 Dose: 0.5 mg Piperacillin Sod/Tazobactam (Sod 3.375 gm/ Sodium Chloride) 100 mls @ 200 mls/ hr IVPB Q6H [facility] Last Admin: 12/30/16 04:17 Dose: 200 mls/hr Nicotine (Nicoderm Cq) 1 patch TD DAILY [facility] Last Admin: 12/29/16 10:10 Dose: 1 patch Ondansetron HCl (Zofran Inj) 4 mg IVP Q6H PRN PRN Reason: Nausea/Vomiting Pantoprazole Sodium (Protonix Ec Tab) 20 mg PO BID [facility] Last Admin: 12/29/16 21:47 Dose: 20 mg Sucralfate (Carafate Oral Susp) 1 gm PO Q6 [facility] Last Admin: 12/30/16 06:02 Dose: 1 gm Zolpidem Tartrate (Ambien) 5 mg PO HS PRN PRN Reason: Insomnia Last Admin: 12/29/16 21:47 Dose: 5 mg - Labs Labs: 12/29/16 09:21 12/30/16 06:59 PT 12.2 SECONDS (9.7-12.2) 12/25/16 23:25 INR 1.1 12/25/16 23:25 APTT 26 SECONDS (21-34) 12/26/16 07:23 - Constitutional Appears: No Acute Distress - Head Exam Head Exam: NORMOCEPHALIC - Eye Exam Eye Exam: Normal appearance - ENT Exam ENT Exam: Mucous Membranes Moist - Respiratory Exam Respiratory Exam: NORMAL BREATHING PATTERN - Cardiovascular Exam Cardiovascular Exam: +S1, +S2 - GI/Abdominal Exam GI & Abdominal Exam: Soft, Tenderness Additional comments: mild tenderness to palpation - Neurological Exam Neurological Exam: Alert, Awake, Oriented x3 - Psychiatric Exam Psychiatric exam: Normal Mood - Skin Skin Exam: Dry, Intact, Warm Assessment and Plan - Assessment and Plan (Free Text) Assessment: 61 y.o. female status post ventral hernia repair POD 8: WBC trending down c/w abx trend WBC monitor bm's encourage ambulation encourage incentive spirometer use full liquid diet with protein supplementation as per bariatric surgeon recommendation Further rec's per Dr. Dg Merida PGY-2
[2016-12-30] MEDS ORDERED: HYDROmorphone 0.5 mg/0.5 ml ISec IVP PRN (08:52)
[2016-12-30] MEDS: Calcium-Vit D 250 mg-125 Units Tab UD PO SCH (09:06)
[2016-12-30 09:58] LABS: BASO # 0.1 K/uL (0.0-0.2); BASO % 0.4 % (0.0-2.0); EOS # 0.2 K/uL (0.0-0.7); EOS % 1.7 % (0.0-4.0); HEMATOCRIT 31.4 % (34.0-47.0); LYMPH # 1.7 K/uL (1.0-4.3); LYMPH % 12.2 % (20.0-40.0); MEAN CELL VOLUME 88.7 fL (81.0-99.0); MEAN CORPUSCULAR HEMOGLOBIN 28.9 pg (27.0-31.0); MEAN CORPUSCULAR HGB CONC 32.6 g/dL (33.0-37.0); MEAN PLATELET VOLUME 7.5 fL (7.2-11.7); MONO # 0.9 K/uL (0.0-0.8); MONO % 6.8 % (0.0-10.0); RED CELL DISTRIBUTION WIDTH 14.6 % (11.5-14.5); WHITE BLOOD COUNT 13.8 K/uL (4.8-10.8)
--- NOTE | 2016-12-30 11:12 | RAD ---
Upper GI series 12/28/2016. History: Gastric bypass x 2 with recent episode of GI bleeding. Endoscopy findings consistent with penetrating gastroduodenal ulcer. Limited single contrast upper GI series performed utilizing water-soluble Omnipaque contrast material. Comparison made with prior CT scan of the abdomen and pelvis 11/06/2016. Findings: Study reveals small hiatal hernia. Postoperative changes of gastric bypass present with marked distortion of normal anatomy. small curvilinear contrast collection in the region the expected region of the fundus of the stomach of possibility of a contained leak cannot be excluded. . Gastrojejunostomy at with filling of the proximal small bowel to the right. There also appears to be filling of the excluded stomach just to the left and inferior to the EG junction. . There is a segment of dilated small bowel in the left mid abdomen however no evidence of obstruction. No definitive radiographic evidence of contrast extravasation into the peritoneal cavity. . . Impression: Gastric bypass surgery with marked distortion of normal anatomy. No definitive evidence of contrast extravasation into the peritoneal cavity no evidence of obstruction. The possibility of a contained leak cannot be excluded on this exam Small hiatal hernia.
[2016-12-30] MEDS: Pantoprazole 20 mg EC Tab PO SCH ×2 (11:16→17:52)
[2016-12-30] MEDS ORDERED: Potassium Chloride 20 mEq ER Tab PO ONE (12:00)
[2016-12-30] MEDS: Oxycodone/Acetaminophen 5/325 mg Tab PO PRN ×2 (12:02→17:52)
--- NOTE | 2016-12-30 17:48 | CP.PCM.PN ---
Subjective - Date & Time of Evaluation Date of Evaluation: 12/30/16 Time of Evaluation: 17:44 - Subjective Subjective: Patient denies having nausea or vomiting. She had some solid food today, without incident. The incisional pain is improving. The bowel movements are no longer black. Objective - Vital Signs/Intake and Output Vital Signs (last 24 hours): Temp Pulse Resp BP Pulse Ox 98 F 93 H 20 126/87 97 12/30/16 15:00 12/30/16 15:00 12/30/16 15:00 12/30/16 15:00 12/30/16 15:00 Intake and Output: 12/30/16 12/30/16 06:59 18:59 Intake Total 240 Balance 240 - Medications Medications: Current Medications Acetaminophen (Tylenol 325mg Tab) 650 mg PO Q6 PRN PRN Reason: Fever >100.4 F Last Admin: 12/24/16 00:05 Dose: 650 mg Calcium/Vitamin D (Oscal-D 250 Mg-125 Units Tab) 1 tab PO DAILY [facility] Last Admin: 12/30/16 09:06 Dose: 1 tab Enoxaparin Sodium (Lovenox) 40 mg SC DAILY [facility] Last Admin: 12/24/16 11:01 Dose: 40 mg Furosemide (Lasix) 20 mg IVP DAILY [facility] Last Admin: 12/30/16 10:40 Dose: Not Given Nicotine (Nicoderm Cq) 1 patch TD DAILY [facility] Last Admin: 12/30/16 09:06 Dose: 1 patch Ondansetron HCl (Zofran Inj) 4 mg IVP Q6H PRN PRN Reason: Nausea/Vomiting Oxycodone/Acetaminophen (Percocet 5/325 Mg Tab) 2 tab PO Q4H PRN PRN Reason: Pain, severe (8-10) Stop: 01/02/17 11:30 Last Admin: 12/30/16 12:02 Dose: 2 tab Pantoprazole Sodium (Protonix Ec Tab) 20 mg PO BID [facility] Last Admin: 12/30/16 11:16 Dose: 20 mg Sucralfate (Carafate Oral Susp) 1 gm PO Q6 [facility] Last Admin: 12/30/16 14:00 Dose: 1 gm Zolpidem Tartrate (Ambien) 5 mg PO HS PRN PRN Reason: Insomnia Last Admin: 08/22/17 21:47 Dose: 5 mg - Labs Labs: 12/30/16 09:55 12/30/16 06:59 PT 12.2 SECONDS (9.7-12.2) 12/25/16 23:25 INR 1.1 12/25/16 23:25 APTT 26 SECONDS (21-34) 12/26/16 07:23 - Constitutional Appears: No Acute Distress - Head Exam Head Exam: ATRAUMATIC, NORMOCEPHALIC - Eye Exam Eye Exam: EOMI, PERRL - Neck Exam Neck Exam: absent: Lymphadenopathy, Thyromegaly - Respiratory Exam Respiratory Exam: NORMAL BREATHING PATTERN. absent: Rales, Rhonchi, Wheezes - Cardiovascular Exam Cardiovascular Exam: REGULAR RHYTHM, +S1, +S2. absent: Rubs, Murmur - GI/Abdominal Exam GI & Abdominal Exam: Soft, Tenderness, Normal Bowel Sounds. absent: Mass, Organomegaly - Rectal Exam Rectal Exam: Deferred - Extremities Exam Extremities Exam: absent: Calf Tenderness, Pedal Edema Assessment and Plan (1) Melena Assessment & Plan: The melena has resolved. The HGB today was 10.2, down from 11.1. 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 Protonix was switched to oral. Agree with advancing diet. Patient should be referred to a bariatric center with expertise at revisional surgery for definitive treatment of the ulcer. Status: Acute
[2016-12-31 01:19] VITALS: TEMP 98.2
[2016-12-31] MEDS: Oxycodone/Acetaminophen 5/325 mg Tab PO PRN ×2 (03:35→11:20)
[2016-12-31] MEDS: Sucralfate 1 gm/10 ml Oral Susp UD PO SCH ×4 (05:47→17:11)
[2016-12-31 08:12] VITALS: BP 138/95; PULSE 96; O2SAT 100
[2016-12-31] MEDS: Calcium-Vit D 250 mg-125 Units Tab UD PO SCH (09:18)
[2016-12-31] MEDS: Pantoprazole 20 mg EC Tab PO SCH ×2 (09:18→17:11)
[2016-12-31] MEDS ORDERED: Potassium Chloride 20 mEq ER Tab PO ONE ×2 (10:00→11:15)
[2016-12-31 14:25] LABS: BASO % 0.3 % (0.0-2.0); EOS # 0.3 K/uL (0.0-0.7); EOS % 1.7 % (0.0-4.0); HEMATOCRIT 32.7 % (34.0-47.0); LYMPH % 12.7 % (20.0-40.0); MEAN CELL VOLUME 89.2 fL (81.0-99.0); MEAN CORPUSCULAR HEMOGLOBIN 29.4 pg (27.0-31.0); MEAN PLATELET VOLUME 7.2 fL (7.2-11.7); MONO # 0.9 K/uL (0.0-0.8); MONO % 5.6 % (0.0-10.0); NRBC % 0.1 % (0.0-2.0); RED CELL DISTRIBUTION WIDTH 14.7 % (11.5-14.5)
--- NOTE | 2016-12-31 14:29 | CP.PCM.PN ---
Subjective - Date & Time of Evaluation Date of Evaluation: 12/31/16 Time of Evaluation: 10:00 - Subjective Subjective: Patient seen and examined this morning. Reports normal BM, non-bloody. Passing flatus. Tolerating regular diet. No acute events overnight. Ambulates to commode. Has refused working with physical therapy. Patient states today she has agreed to work with PT. Abdominal site is c/d/i. Objective - Vital Signs/Intake and Output Vital Signs (last 24 hours): Temp Pulse Resp BP Pulse Ox 98.2 F 96 H 20 138/95 H 100 12/31/16 08:07 12/31/16 08:07 12/31/16 08:07 12/31/16 08:07 12/31/16 08:07 Intake and Output: 12/31/16 12/31/16 06:59 18:59 Intake Total 360 Balance 360 - Medications Medications: Current Medications Acetaminophen (Tylenol 325mg Tab) 650 mg PO Q6 PRN PRN Reason: Fever >100.4 F Last Admin: 12/24/16 00:05 Dose: 650 mg Calcium/Vitamin D (Oscal-D 250 Mg-125 Units Tab) 1 tab PO DAILY [facility] Last Admin: 12/31/16 09:18 Dose: 1 tab Enoxaparin Sodium (Lovenox) 40 mg SC DAILY [facility] Last Admin: 12/24/16 11:01 Dose: 40 mg Nicotine (Nicoderm Cq) 1 patch TD DAILY [facility] Last Admin: 12/31/16 09:17 Dose: 1 patch Ondansetron HCl (Zofran Inj) 4 mg IVP Q6H PRN PRN Reason: Nausea/Vomiting Oxycodone/Acetaminophen (Percocet 5/325 Mg Tab) 2 tab PO Q4H PRN PRN Reason: Pain, severe (8-10) Stop: 01/02/17 11:30 Last Admin: 12/31/16 11:20 Dose: 2 tab Pantoprazole Sodium (Protonix Ec Tab) 20 mg PO BID [facility] Last Admin: 12/31/16 09:18 Dose: 20 mg Spironolactone (Aldactone) 25 mg PO DAILY [facility] Last Admin: 12/31/16 11:17 Dose: 25 mg Sucralfate (Carafate Oral Susp) 1 gm PO Q6 [facility] Last Admin: 08/24/17 11:17 Dose: 1 gm Zolpidem Tartrate (Ambien) 5 mg PO HS PRN PRN Reason: Insomnia Last Admin: 12/29/16 21:47 Dose: 5 mg - Labs Labs: 12/30/16 09:55 12/30/16 06:59 PT 12.2 SECONDS (9.7-12.2) 12/25/16 23:25 INR 1.1 12/25/16 23:25 APTT 26 SECONDS (21-34) 12/26/16 07:23 - Constitutional Appears: No Acute Distress - Head Exam Head Exam: NORMOCEPHALIC - Eye Exam Eye Exam: Normal appearance - ENT Exam ENT Exam: Mucous Membranes Moist - Respiratory Exam Respiratory Exam: NORMAL BREATHING PATTERN - Cardiovascular Exam Cardiovascular Exam: +S1, +S2 - GI/Abdominal Exam GI & Abdominal Exam: Soft - Rectal Exam Rectal Exam: NORMAL INSPECTION - Neurological Exam Neurological Exam: Alert, Awake, Oriented x3 - Psychiatric Exam Psychiatric exam: Normal Mood - Skin Skin Exam: Dry, Intact, Warm Assessment and Plan - Assessment and Plan (Free Text) Assessment: 61 y.o. female status post ventral hernia repair POD 9: F/u AM labs c/w PT encourage incentive spirometer use regular diet Further rec's per Dr. Dg Merida PGY-2
[2016-12-31 14:38] LABS: CHLORIDE 102 mmol/L (98-107); POTASSIUM 4.2 mmol/L (3.6-5.2); SODIUM 140 mmol/L (132-148)
[2016-12-31 14:41] LABS: CARBON DIOXIDE 27 mmol/L (22-30); GFR AFRICAN-AMERICAN > 60
[2016-12-31 14:42] LABS: BLOOD UREA NITROGEN 9 mg/dL (7-17); CALCIUM 8.3 mg/dl (8.6-10.4); GLUCOSE,RANDOM 107 mg/dL (65-105)
[2016-12-31] MEDS ORDERED: Pneumococcal 23-Valent Vaccine IM ONE (18:05)
--- NOTE | 2017-01-14 08:07 | DS ---
SUBJECTIVE: The patient is an older middle aged woman who had a history of multiple bariatric procedures in the past who was admitted to the hospital for repair of incisional hernia. Incisional hernia occurred after she had multiple abdominal operations most recently which was a small bowel resection anastomosis and a cholecystectomy. Initially, she recovered from the operation very well. She would slowly get out of bed as she recovered, and we used a large mesh to repair hernia. Soon after, she began to have anemia. She subsequently underwent an endoscopy by Dr. Waterman with findings that the patient had a visible mesh, after mesh reporting for repair of the abdominal wall hernia, further mesh from previous reinforcement of a bariatric procedure which was visible and a bleeding ulcer adjacent to the anastomosis. She was treated with medications successfully. She required multiple blood transfusions. She was also seen by Danny Craig and his associates with bariatric surgeons who felt this was a challenging problem should be managed later and we will be doing it. Ultimately, however because of the exposed mesh, suture lines are visible in the gastric remnants, this will require other interventions in the future and I discussed with them the options. At the time of discharge, the patient was discharged home. Diet, activity and follow up instructions were given to her. She was ambulatory and eating a regular diet. FINAL DIAGNOSES: 1. Incisional hernia. 2. Gastrointestinal hemorrhage secondary to complications from bariatric surgery. 3. Other operations were endoscopy by Dr. Waterman. Danis Conte Jr., MD
== END 2016-12-31 19:00 | disposition home or self-care (01) | DRG 330 ==
LOC: C.SDS 06:29 → C.9S 10:46 → C.6T 21:11 → C.9I 12-26 11:03 → C.3T 12-29 15:30
PROVIDERS: ADMIT Surgery Vascular Surgery; ATTEND Surgery Vascular Surgery
PROC: 0DT80ZZ Resection of Small Intestine, Open Approach (ICD-10-PCS; 2016-12-21)
PROC: 0DNW0ZZ Release Peritoneum, Open Approach (ICD-10-PCS; 2016-12-21)
PROC: 0WUF0JZ Supplement Abdominal Wall with Synthetic Substitute, Open Approach (ICD-10-PCS; principal; 2016-12-21 07:45)
PROC: 30233N1 Transfusion of Nonautologous Red Blood Cells into Peripheral Vein, Percutaneous Approach (ICD-10-PCS; 2016-12-26)
PROC: 0DJ08ZZ Inspection of Upper Intestinal Tract, Via Natural or Artificial Opening Endoscopic (ICD-10-PCS; 2016-12-26)
DX: K43.2 Incisional hernia without obstruction or gangrene (principal); K91.71 Accidental puncture and laceration of a digestive system organ or structure during a digestive system procedure; K28.9 Gastrojejunal ulcer, unspecified as acute or chronic, without hemorrhage or perforation; K92.1 Melena; D62 Acute posthemorrhagic anemia; I10 Essential (primary) hypertension; K66.0 Peritoneal adhesions (postprocedural) (postinfection); Y83.8 Other surgical procedures as the cause of abnormal reaction of the patient, or of later complication, without mention of misadventure at the time of the procedure; F17.200 Nicotine dependence, unspecified, uncomplicated; G89.18 Other acute postprocedural pain; J45.909 Unspecified asthma, uncomplicated; K21.9 Gastro-esophageal reflux disease without esophagitis; Z98.84 Bariatric surgery status; Z96.60 Presence of unspecified orthopedic joint implant

== ENCOUNTER 2017-05-17 06:30 | Day surgery (SDC) | payer MEDICARE ==
[2016-12-17 13:02] VITALS: BMI 24.1
--- NOTE | 2017-05-17 08:43 | CP.SDSHP ---
Same Day Surgery H & P - History Proposed Procedure: EGD Pre-Op Diagnosis: Chronic gastrojejunal ulcer - Previous Medical/Surgical History Cardiac: Hypertension Pulmonary: Asthma Misc: Other Comments: Arthritis Previous Surgical History: cholecystectomy, gastric bypass, hysterectomy, ventral hernia - Allergies Allergies: Allergies No Known Allergies Allergy (Verified 11/23/16 11:25) - Current Medications Current Medications: See reconciliation sheet - Physical Exam General Appearance: WD WN female in NAD Vital Signs: Vital Signs 05/17/17 07:16 Temperature 97 F L Pulse Rate 80 Respiratory 16 Rate Blood Pressure 121/86 O2 Sat by Pulse 100 Oximetry Mental Status: Alert & Oriented x3 Neuro: WNL Heart: WNL Lungs: WNL GI: WNL - {Optional Preform as Required} Abdomen: WNL - Impression Impression: Chronic gastrojejunal ulcer Pt. Evaluated Today:Candidate for Anesthesia & Procedure: Yes - Date & Time Date: 05/17/17 Time: 08:43 Short Stay Discharge - Short Stay Discharge Admitting Diagnosis/Reason for Visit: CHRONIC ULCER Disposition: HOME/ ROUTINE
[2017-05-17] MEDS ORDERED: Lactated Ringer's 1,000 ML IV ONE ×2 (08:49)
[2017-05-17] MEDS ORDERED: Midazolam 2 MG/2 ML VIAL ONE (08:58)
[2017-05-17] MEDS ORDERED: Propofol 10 mg/ml Inj (20 ML) ONE (08:58)
[2017-05-17] MEDS ORDERED: Lidocaine Hydrochloride 5 ML INJ ONE (08:59)
[2017-05-17 09:34] LABS: FERRITIN 90.1 ng/mL
[2017-05-17 09:39] VITALS: TEMP 98
[2017-05-17 10:05] LABS: FOLATE 12.7 ng/mL
[2017-05-17 10:38] VITALS: O2SAT 97
[2017-05-17 13:32] VITALS: BP 118/87; PULSE 94; RESP 15
== END 2017-05-17 13:29 | disposition home or self-care (01) ==
LOC: C.ENDO 06:30
PROVIDERS: ATTEND Internal Medicine Gastroenterology
DX: K28.9 Gastrojejunal ulcer, unspecified as acute or chronic, without hemorrhage or perforation (principal); K44.9 Diaphragmatic hernia without obstruction or gangrene
CPT/HCPCS: 36415; 43235; 82306; 82607; 82728; 82746; 83540; 83550; J2250; J2704; J7120